=== PATIENT | male | born 1965 | race Caucasian/White ===

== ENCOUNTER 2023-07-24 16:33 | Outpatient (CLI) | payer BC, SELFPAY ==
--- OUTSIDE RECORDS SUMMARY | 2023-07-24 16:52 | XMS RPT_ITS | CCD ---
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 Name Role Phone JAMIA OTERO Attending Unavailable SHANNA, JAMIA Martinez Primary Care Unavailable SHANNA, JAMIA Martinez Admitting Unavailable NATALIE SARAH CNP Referring Unavailable NATALIE SARAH CNP Consulting Unavailable PROVIDER, UNKNOWN Consulting Unavailable PROVIDER, UNKNOWN Consulting Unavailable LEATHA SMITH IT SYSTEMS ADMINISTRATOR Primary Care Unavailable KAVYARLEATHA IT SYSTEMS ADMINISTRATOR Admitting Unavailable NATALIE SARAH CNP Consulting Unavailable CHEPEERERLEATHA IT SYSTEMS ADMINISTRATOR Attending Unavailable PROVIDER, UNKNOWN Consulting Unavailable PROVIDER, UNKNOWN Consulting Unavailable UNGERERLEATHA IT SYSTEMS ADMINISTRATOR Consulting Unavailable FISCHER, MALIA T Attending Unavailable FISCHER, MALIA T Primary Care Unavailable FISCHER, MALIA T Admitting Unavailable PROVIDER, UNKNOWN Consulting Unavailable JAMIA OTERO Attending Unavailable SHANNA, JAMIA Martinez Primary Care Unavailable SHANNA, JAMIA Martinez Admitting Unavailable NATALIE SARAH CNP Consulting Unavailable NATALIE SARAH CNP Referring Unavailable PROVIDER, UNKNOWN Consulting Unavailable PROVIDER, UNKNOWN Consulting Unavailable Results Test Name Value Interpretation Reference Range Facil ity Encounters Encounter Date Encounter Type Care Provider Facility Start: 02-17-2023 ambulatory LEATHA IT SYSTEMS ADMINISTRATOR [facility] Start: 02-14-2023 End: 02-14-2023 Emergency department patient visit JAMIA OTERO [facility] Start: 01-15-2023 End: 01-15-2023 ambulatory LEATHA IT SYSTEMS ADMINISTRATOR [facility] Start: 08-06-2022 End: 08-06-2022 Emergency department patient visit JAMIA Martinez SHANNA [facility] Payers Date Payer Category Payer Unknown [id number] [id number] 1965 Unknown [id number] [id number] 1965 Unknown [id number] [id number] 1965 Unknown [id number] [id number] Unknown [id number] Unknown [id number] Unknown [id number] Summary Purpose Family History No Family History Records FoundNo Family History Records Found Advance Directives No Advanced Directives Records FoundNo Advanced Directives Records Found Additional Source Comments (unrecognized sect ion and content) No Status Records FoundNo Status Records Found INFORMATION SOURCE (unrecogn ized section and content) DATE CREATED AUTHOR AUTHOR'S ORGANIZ ATION 02/18/2023 [facility] FOR RECORDS PERTAINING TO PATIENTS WHO ARE OR HAVE BEEN ENROLLED IN A CHEMICAL DEPENDENCY/SUBSTANCEABUSE PROGRAM, SOME INFORMATION MAY BE OMITTED. This clinical summary was aggregated from multiple sources. Caution should be exercised in using it in the provision of clinical care. This summary normalizes information from multiple sources, and as a consequence, information in this document may materially change the coding, format and clinical context of patient data. In addition, data may be omitted in some cases. CLINICAL DECISIONS SHOULD BE BASED ON THE PRIMARY CLINICAL RECORDS. [employer] [facility]. provides no warranty or guarantee of the accuracy or completeness of information in this document.
[2023-07-24 17:18] LABS: Absolute Neutrophil Count 3.2 X10^3/uL (2.0-7.7); Basophil# 0.06 X10^3/uL; Eosinophil# 0.11 X10^3/uL; Eosinophils% 1.9 % (0-5); Hematocrit 43.4 % (40-54); Hemoglobin 14.9 g/dL (13.0-16.5); Lymphocyte % 32.9 % (19-41); Mean Corp Hgb Conc 34.3 g/dL (32-36); Mean Corpuscular Hgb 31.8 pg (27.0-32.0); Mean Corpuscular Volume 92.5 fL (80-94); Mean Platelet Vol. 10.5 fl (6.2-12.0); Monocyte% 8.7 % (0-10); NRBC Flagged by Analyzer 0 % (0-5); Neutrophil # 3.19 X10^3/uL (2.7-7.7); Neutrophil % 55.2 % (47-70); Platelet Count 146 K/mm3 (150-450); RBC Distribution Width CV 13.5 % (11.6-14.6); RBC Distribution Width SD 45.6 fl (35.1-43.9); Red Blood Count 4.69 M/mm3 (4.6-6.2); White Blood Count 5.8 K/mm3 (4.4-11.0)
[2023-07-24 18:11] LABS: Vitamin D,25 Hydroxy 9.6 ng/mL
[2023-07-24 18:30] LABS: ALB/GLOB Ratio 0.9 RATIO (0.9-2.4); AST(SGOT) 28 U/L (15-37); Alanine Aminotransfer ALT/SGPT 36 U/L (16-61); Albumin, Serum 3.7 g/dL (3.2-5.0); Alkaline Phosphatase 127 U/L (45-117); Anion Gap 5 (5-15); BUN 16 mg/dL (7-18); BUN/Creat Ratio 16.7 RATIO (10-20); Calcium,Total 8.4 mg/dL (8.5-10.1); Chloride 110 mmol/L (98-107); Cholesterol 178 mg/dL (200); Creatinine, Serum 0.96 mg/dL (0.70-1.30); EST Glomerular Filtration Rate 85 mL/min (>60); Est Glom Filt Rate - Afr Amer 103 mL/min (>60); Globulin 3.9 g/dL (2.2-4.2); Glucose 91 mg/dL (74-106); High Density Lipoprotein 30 mg/dL; Potassium 3.5 mmol/L (3.5-5.1); Protein, Total 7.6 g/dL (6.4-8.2); Sodium Level 139 mmol/L (136-145); Thyroid Stim Hormone (TSH) 0.66 uIU/mL (0.358-3.74); Triglycerides 466 mg/dL
== END 2023-07-24 23:59 | disposition home or self-care (01) ==
LOC: MTLAB 16:35
PROVIDERS: PCP Family Medicine; Referring Provider Family Medicine; Visit Provider Family Medicine
DX: Z13.220 Encounter for screening for lipoid disorders (principal); I10 Essential (primary) hypertension; Z13.21 Encounter for screening for nutritional disorder
CPT/HCPCS: 36415; 80053; 80061; 82306; 84443; 85025

== ENCOUNTER → 2023-09-25 | Outpatient (CLI) | payer BC, SELFPAY ==
--- NOTE | 2023-09-25 17:13 | RAD_ITS ---
STUDY: X-RAY - RIGHT SHOULDER REASON FOR EXAM: Male, 57 years old. Right shoulde rinjury TECHNIQUE: 3 view(s) of the shoulder. COMPARISON: None. 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 Normal acromioclavicular joint. Normal acromion. Normal humeral head and visualized proximal humerus. The soft tissue structures are unremarkable. Normal visualized pulmonary apex. RAD/Shoulder min 2 Views IMPRESSION: No fracture or malalignment Electronically Signed: Israel Fatima MD (Brooks) at 20:27 EST ,
--- OUTSIDE RECORDS SUMMARY | 2023-09-25 19:11 | XMS RPT_ITS | CCD ---
Author Name Unknown Address [address] [place] [address] Organization [facility] Care Team Providers Care Sewer Separation Designer Name Role Phone JAMIA OTERO Attending Unavailable SHANNA, JAMIA Martinez Primary Care Unavailable SHANNA, JAMIA Martinez Admitting Unavailable NATALIE SARAH CNP Referring Unavailable NATALIE SARAH CNP Consulting Unavailable PROVIDER, UNKNOWN Consulting Unavailable PROVIDER, UNKNOWN Consulting Unavailable LEATHA SMITH MECHANISM INSPECTOR Primary Care Unavailable KAVYARLEATHA MECHANISM INSPECTOR Admitting Unavailable NATALIE SARAH CNP Consulting Unavailable CHEPEERERLEATHA MECHANISM INSPECTOR Attending Unavailable PROVIDER, UNKNOWN Consulting Unavailable PROVIDER, UNKNOWN Consulting Unavailable UNGERERLEATHA MECHANISM INSPECTOR Consulting Unavailable FISCHER, MALIA T Attending Unavailable [...] Care Provider Facility Start: 02-17-2023 ambulatory [facility]ATHA MECHANISM [facility] Start: 02-14-2023 End: 02-14-2023 Emergency department patient visit JAMIA Juan SHANNA [facility] Start: 01-15-2023 End: 01-15-2023 ambulatory LEATHA MECHANISM INSPECTOR [facility] Start: 08-06-2022 End: 08-06-2022 Emergency department patient visit JAMIA Martinez SHANNA [facility] Payers Date Payer Category Payer Unknown [id number] [id number] [id number] 1965 Unknown [id number] [id number] [id number] 1965 Unknown [id number] [id number] [id number] 1965 Unknown [id number] [id number] Unknown [id number] Unknown [id number] Unknown [id number] Summary Purpose Family History No Family History Records FoundNo Family History Records Found Advance Directives No Advanced Directives Records FoundNo Advanced Directives Records Found Additional Source Comments (unrecognized sect ion and content) No Status Records FoundNo Status Records Found INFORMATION SOURCE (unrecogn ized section and content) DATE CREATED AUTHOR AUTHOR'S ORGANIZ ATION 02/18/2023 [facility] FOR RECORDS PERTAINING TO PATIENTS WHO [...] BE BASED ON THE PRIMARY CLINICAL RECORDS. [facility]. provides no warranty or guarantee of the accuracy or completeness of information in this document.
== END | disposition home or self-care (01) ==
PROVIDERS: PCP Family Medicine; Referring Provider Family Medicine; Visit Provider Family Medicine
DX: M25.519 Pain in unspecified shoulder (principal)
CPT/HCPCS: 73030

== ENCOUNTER → 2023-10-13 | Outpatient (CLI) | payer BC, SELFPAY ==
[2023-10-13 19:09] LABS: Troponin-I HS 8 pg/mL (3.0-78.0)
== END | disposition home or self-care (01) ==
LOC: LAB 17:31
PROVIDERS: PCP Family Medicine; Referring Provider Family Medicine; Visit Provider Family Medicine
DX: Q24.9 Congenital malformation of heart, unspecified (principal)
CPT/HCPCS: 36415; 84484

== ENCOUNTER 2023-11-05 08:09 | Emergency (ER) | payer BC, SELFPAY ==
[2023-11-05 08:09] VITALS: BP 115/96; PULSE 76; RESP 16; TEMP 36.1; O2SAT 99; BMI 25.9
--- NOTE | 2023-11-05 08:18 | EKG12_ITS ---
Test Reason : CHEST PAIN Blood Pressure : / mmHG Vent. Rate : 072 BPM Atrial Rate : 072 BPM P-R Int : 188 ms QRS Dur : 086 ms QT Int : 394 ms P-R-T Axes : 027 024 025 degrees QTc Int : 431 ms Normal sinus rhythm Low voltage QRS Borderline ECG Confirmed by DESTINY BURNETTE, ISABEL ([id number]), field map editor TORY MORALES ([id number]) on 11/06/2023 9:14:29 AM Referred By: Confirmed By:ISABEL DIXON MD
--- NOTE | 2023-11-05 08:18 | RAD_ITS ---
INDICATION: chest pain EXAMINATION/TECHNIQUE: X-RAY - XR Chest 1 View COMPARISON: No relevant prior comparison study available FINDINGS: LINES/DEVICES: None. LUNGS: No consolidation, edema or effusion. No pneumothorax. MEDIASTINUM AND CARDIOVASCULAR STRUCTURES: Cardiac silhouette not enlarged. Central airways and mediastinal contour are unremarkable. BONES AND SOFT TISSUES: Unremarkable. RAD/Chest 1 View (Portable) IMPRESSION: No radiographic evidence of acute cardiopulmonary disease. Electronically Signed: Bill Adams MD at 8:47 EDT ,
--- NOTE | 2023-11-05 08:19 | EDS_ITS ---
HPI History of Present Illness Chief Complaint: Chest Pain Informant: patient Onset/Context/Timing Onset: Weeks Narrative Narrative: Patient present secondary to chest pain. Has been having chest pain and shortness of breath for several weeks that tends to wax and wane. This morning his symptoms were worsened so he presents to the emergency room. He is scheduled for an echocardiogram and stress test on the , but due to worsening symptoms came in today for evaluation. He reports history of hypertension. No known history of cardiac disease. No risk factors for DVT/PE. [facility] Medical History (Updated 11/05/23 @ 11:[address] Ramona Graves MD) Hypertension Home Medications amlodipine 10 mg tablet 10 mg PO DAILY 11/05/23 [History Last Taken 11/04/23] losartan 50 mg tablet 50 mg PO DAILY 11/05/23 [History Last Taken 11/04/23] Allergy/AdvReac Type Severity Reaction Status Date / Time No Known Allergies Allergy Unverified 07/14/23 13:56 Social History (Updated 11/05/23 @ 08:[address] Ramona Graves MD) Smoking Status: Never smoker ROS ROS ED Constitutional Constitutional ED: Denies chills or fever(s) Eyes Eyes: Denies change in vision or discharge from eye(s) ENT ENT ED: Denies discharge from eye(s), rhinorrhea or sore throat Cardiovascular Cardiovascular: Denies chest pain or palpitations Respiratory/Chest Respiratory/Chest: Reports dyspnea; Denies cough Gastrointestinal Gastrointestinal: Reports abdominal pain; Denies nausea or vomiting Musculoskeletal Musculoskeletal: Denies back pain or extremity pain Integumentary Denies Abrasions or rash Neurologic Neurologic: Denies headache(s) or weakness Allergic/Immunologic Allergic/Immunologic ED: Denies lip swelling or urticaria EXAM Physical Exam Const Vital Signs: 11/05/23 08:09 11/05/23 08:18 11/05/23 10:09 Temperature 97 F L Temperature Source Temporal Pulse Rate 76 56 L Respiratory Rate 16 16 Blood Pressure 115/96 H 119/90 H Blood Pressure Mean 102 99 Pulse Ox 99 97 Oxygen Delivery Method Room Air Room Air Room Air Positive well nourished and well developed General Appearance ED: well developed HEENT Reports moist mucous membranes Eyes EOMs intact bilaterally Chest Wall inspection of chest normal and palpation of chest normal Resp normal respiratory effort and clear to auscultation bilaterally Cardio regular rate and regular rhythm GI non-tender Palpation: soft Extremity normal to inspection Neuro oriented x3 and no sensory deficits noted Motor Exam: strength 5/5 throughout Psych mental status grossly normal Skin no rashes or lesions noted MDM MDM MDM Narrative Medical decision making narrative: Patient placed on cardiac rehabilitation specialist. IV line initiated. EKG obtained to evaluate for cardiac arrhythmia/ischemia. Chest x-ray obtained to evaluate for acute lung pathology, cardiac size, or mediastinal abnormality. Labwork obtained to evaluate for leukocytosis, anemia, and electrolyte derangement. Patient given aspirin on arrival. History & Record Review Discussion w/independent historian: Patient and Significant other Additional record(s) reviewed:: Prior labs Lab Data Attestation: I reviewed the patient's lab results. Labs: Laboratory Results - last 24 hr 11/05/23 11/05/23 08:30 10:40 WBC 5.3 RBC 4.87 Hgb 14.7 Hct 44.1 MCV 90.6 MCH 30.2 MCHC 33.3 RDW Std Deviation 41.8 RDW Coeff of Carlos 12.8 Plt Count 134 L MPV 10.7 Immature Gran % (Auto) 0.400 Neut % (Auto) 61.7 Lymph % (Auto) 28.6 [place] % (Auto) 8.1 Eos % (Auto) 0.4 Baso % (Auto) 0.8 Absolute Neuts (auto) 3.3 Absolute Lymphs (auto) 1.51 Nucleated RBC % 0 D-Dimer Quant (PE/DVT) 0.29 Sodium 140 Potassium 3.7 Chloride 110 H Carbon Dioxide 24.0 Anion Gap 6 BUN 15 Creatinine 1.08 Estim Creat Clear Calc 78.44 Est GFR (MDRD) Af Amer 90 Est GFR (MDRD) Non-Af 74 BUN/Creatinine Ratio 13.9 Glucose 95 Calcium 9.1 Troponin I High Sens 5 5 B-Natriuretic Peptide 25.1 Radiography Chest X-Ray - ED: 1 View, Read by ED Physician, Normal, Heart, Lungs and Mediastinum Diagnostic Testing: Clinical Impression(s) from Imaging Studies Chest X-Ray 11/05/23 08:18 IMPRESSION: No radiographic evidence of acute cardiopulmonary disease. Electronically Signed: Bill Adams MD at 8:47 EDT , EKG Initial EKG: Attestation: I personally reviewed and interpreted this EKG as follows: Interpretation: Sinus Rhythm (Sinus at 72 with no acute ischemia.) Treatment and Re-Evaluation :: CBC was normal white count 5.3 with a hemoglobin of 14.7. Chemistry studies unremarkable. Initial troponin is 5 with a repeat troponin of 5. BNP is normal at 25. Portable chest x-ray per my interpretation reveals chronic changes with no acute findings. Radiology interpretation reviewed and agrees. EKG is sinus rhythm with no acute ischemia. I did discuss patient's pain with him further. It is not necessarily worsened with exertion or better with rest. He states there are several days that he can go to work and perform his normal duties and activities without any pain at all. In light of this with 2 negative troponins I do not feel he needs to stay for an emergent stress test. He will continue to monitor his symptoms and return instructions are given. He will plan to follow-up on the for his scheduled echo and stress unless his symptoms worsen. Discharge Plan Triage Chief Complaint: Chest Pain ED Provider: Ramona Graves Dx/Rx/DC Orders Clinical Impression: Chest pain Instructions: ED Chest Pain, Uncertain Cause Prescriptions: No Action losartan 50 mg tablet 50 mg PO DAILY amlodipine 10 mg tablet 10 mg PO DAILY Stand Alone Forms: Work / School Excuse Primary Care Provider: Sri Stevens Referrals: Sri Stevens MD [Primary Care Provider] - 1-2 Weeks Activity Restrictions/Additional Instructions: Follow-up on the 18 for your echocardiogram and stress test as planned. Return to the ER for worsening symptoms or concerns. Disposition Disposition: Home, Self Care
[2023-11-05] MEDS: Aspirin 81 MG TAB.CHEW 324 MG PO (08:26)
--- NOTE | 2023-11-05 08:26 | ED.RN ---
NO OLD EKG
[2023-11-05 08:45] LABS: Absolute Lymphocyte Count 1.51 X10^3/uL (0.83-4.51); Absolute Neutrophil Count 3.3 X10^3/uL (2.0-7.7); Basophil# 0.04 X10^3/uL; Basophil% 0.8 % (0-1); Eosinophil# 0.02 X10^3/uL; Eosinophils% 0.4 % (0-5); Hematocrit 44.1 % (40-54); Hemoglobin 14.7 g/dL (13.0-16.5); Lymphocyte # 1.51 X10^3/ul (0.83-4.51); Lymphocyte % 28.6 % (19-41); Mean Corp Hgb Conc 33.3 g/dL (32-36); Mean Corpuscular Hgb 30.2 pg (27.0-32.0); Mean Corpuscular Volume 90.6 fL (80-94); Mean Platelet Vol. 10.7 fl (6.2-12.0); Monocyte# 0.43 X10^3/uL; Monocyte% 8.1 % (0-10); NRBC Flagged by Analyzer 0 % (0-5); Neutrophil # 3.26 X10^3/uL (2.7-7.7); Neutrophil % 61.7 % (47-70); Platelet Count 134 K/mm3 (150-450); RBC Distribution Width CV 12.8 % (11.6-14.6); RBC Distribution Width SD 41.8 fl (35.1-43.9); Red Blood Count 4.87 M/mm3 (4.6-6.2); White Blood Count 5.3 K/mm3 (4.4-11.0)
[2023-11-05] MEDS: 0.9% Normal Saline (1000mL) 1,000 ML 150 ML IV (08:47)
[2023-11-05 08:52] LABS: D-Dimer Quantitative (DVT/PE) 0.29 FEU/ug/m (0.27-0.49)
[2023-11-05 09:01] LABS: Anion Gap 6 (5-15); BUN 15 mg/dL (7-18); BUN/Creat Ratio 13.9 RATIO (10-20); Calcium,Total 9.1 mg/dL (8.5-10.1); Chloride 110 mmol/L (98-107); Creatinine, Serum 1.08 mg/dL (0.70-1.30); EST Glomerular Filtration Rate 74 mL/min (>60); Est Glom Filt Rate - Afr Amer 90 mL/min (>60); Estimated Creatinine Clearance 78.44 ml/min; Glucose 95 mg/dL (74-106); Potassium 3.7 mmol/L (3.5-5.1); Sodium Level 140 mmol/L (136-145); Troponin-I HS (w/2H Reflex) 5 pg/mL (3.0-78.0)
[2023-11-05 09:07] LABS: BNP,B-Type NATRIURETIC PEPTIDE 25.1 pg/mL (0-100)
[2023-11-05 10:09] VITALS: BP 119/90; PULSE 56; RESP 16; O2SAT 97
[2023-11-05 10:39] LABS: Reflex Troponin-HS? (from REC) Y
[2023-11-05 11:02] LABS: Troponin-I HS 5 pg/mL (3.0-78.0)
[2023-11-05 11:34] VITALS: BP 131/92; PULSE 61; RESP 16; TEMP 36.5; O2SAT 98
== END 2023-11-05 11:39 | disposition home or self-care (01) ==
PROVIDERS: Emergency Provider Emergency Medicine; PCP Family Medicine; Visit Provider Emergency Medicine
DX: R07.9 Chest pain, unspecified (principal); R06.02 Shortness of breath; I10 Essential (primary) hypertension; Z79.899 Other long term (current) drug therapy
CPT/HCPCS: 71045; 80048; 83880; 84484; 85025; 85379; 93005; 96360; 96361; 99284; J7030

== ENCOUNTER → 2024-01-04 | Outpatient (CLI) | payer BC, SELFPAY | END | disposition home or self-care (01) | PROVIDERS: PCP Family Medicine; Referring Provider Nurse Practitioner Family; Visit Provider Nurse Practitioner Family | DX: N39.0 Urinary tract infection, site not specified (principal) | CPT/HCPCS: 87086 ==

== ENCOUNTER → 2024-03-25 | Outpatient (CLI) | payer BC, SELFPAY ==
[2024-03-25 18:00] LABS: Anion Gap 8 (5-15); BUN 16 mg/dL (7-18); BUN/Creat Ratio 13.6 RATIO (10-20); Calcium,Total 9.1 mg/dL (8.5-10.1); Chloride 105 mmol/L (98-107); Creatinine, Serum 1.18 mg/dL (0.70-1.30); EST Glomerular Filtration Rate 67 mL/min (>60); Est Glom Filt Rate - Afr Amer 81 mL/min (>60); Glucose 94 mg/dL (74-106); PSA,Total - Annual Screen 1.23 ng/mL (0.00-4.00); Potassium 3.5 mmol/L (3.5-5.1); Sodium Level 138 mmol/L (136-145)
== END | disposition home or self-care (01) ==
LOC: MFPLAB 15:05
PROVIDERS: PCP Family Medicine; Visit Provider Registered Nurse
DX: R35.0 Frequency of micturition (principal)
CPT/HCPCS: 36415; 80048; 84153; G0103

== ENCOUNTER 2024-04-04 08:20 | Emergency (ER) | payer BC, SELFPAY ==
[2024-04-04 08:21] VITALS: BP 141/100; PULSE 84; RESP 12; TEMP 37.2; O2SAT 100; BMI 26.1
[2024-04-04 08:35] VITALS: O2SAT 97
--- NOTE | 2024-04-04 08:35 | EKG12_ITS ---
Test Reason : SYNCOPE Blood Pressure : / mmHG Vent. Rate : 071 BPM Atrial Rate : 071 BPM P-R Int : 186 ms QRS Dur : 092 ms QT Int : 402 ms P-R-T Axes : 035 067 017 degrees QTc Int : 436 ms Normal sinus rhythm Normal ECG Confirmed by DESTINY BURNETTE, ISABEL ([id number]), photo editor TORY MORALES ([id number]) on 04/05/2024 1:12:48 PM Referred By: Confirmed By:ISABEL DIXON MD
--- NOTE | 2024-04-04 08:40 | ED.VIS.CHEST ---
HPI History of Present Illness Chief Complaint: Chest Pain Informant: patient Narrative Narrative: Patient presenting with right-sided chest pain, dyspnea on exertion, a cough that is nonproductive, had an episode of vertigo when he got up from lying down yesterday and then again this morning making him vomit. He felt like things were spinning in his head. He states 4 days ago when all of this started, he was stung by 2 bees, 1 on his lower right chest and 1 on his upper right chest. He had some soreness and mild itching but no systemic symptoms until later that evening when his entire right chest was hurting. He started coughing and developed dyspnea with exertion the next day or 2. Denies any lower extremity swelling or pain. No fevers or chills or headaches or myalgias. [facility] Medical History Hypertension Home Medications ?Medication ?Instructions ?Recorded ?Last Taken ?Type amlodipine 10 mg tablet 10 mg PO DAILY 11/05/23 11/04/23 History losartan 50 mg tablet 50 mg PO DAILY 11/05/23 11/04/23 History meclizine 25 mg tablet 25 mg PO Q8H PRN PRN Dizziness #20 04/04/24 Unknown Rx tabs Allergy/AdvReac Type Severity Reaction Status Date / Time No Known Allergies Allergy Verified 04/04/24 08:20 Social History Smoking Status: Never smoker ROS [facility] ED Constitutional Constitutional ED: Denies chills or fever(s) Eyes Eyes: Denies change in vision or diplopia ENT ENT ED: Reports dizziness and vertigo; Denies ear pain, neck pain, rhinorrhea, sore throat, throat swelling or tinnitus Cardiovascular Cardiovascular: Reports as per HPI and chest pain; Denies orthopnea or palpitations Respiratory/Chest Respiratory/Chest: Reports cough and dyspnea on exertion; Denies orthopnea or sputum Gastrointestinal Gastrointestinal: Reports nausea and vomiting; Denies abdominal pain or diarrhea Genitourinary Genitourinary ED: Denies dysuria or hematuria Musculoskeletal Musculoskeletal: Denies back pain or neck pain Integumentary Denies abscess or rash Neurologic Neurologic: Denies headache(s), paresthesias or weakness Psychiatric Psychiatric: Denies anxiety or suicidal thoughts EXAM Physical Exam Const Vital Signs: 04/04/24 08:21 04/04/24 08:35 04/04/24 10:19 Temperature 99 F Temperature Source Temporal Pulse Rate 84 81 Respiratory Rate 12 19 H Blood Pressure 141/100 H 124/68 H Blood Pressure Mean 113 86 Pulse Ox 100 97 98 Oxygen Delivery Method Room Air Room Air Room Air Positive well nourished and well developed General Appearance ED: well developed and NAD HEENT Reports TM's clear and moist mucous membranes normocephalic and atraumatic Tympanic Membrane ED: Yes TM's clear Eyes PERRL and EOMs intact bilaterally Neck full ROM and supple Chest Wall inspection of chest normal and palpation of chest normal Chest Narrative: 2 areas right upper and right lower chest wall where patient was stung by bees are benign and the sting sites are barely noticeable, patient agrees they are much better. He states there was a red area that was itchy around them. Resp normal respiratory effort and clear to auscultation bilaterally Cardio regular rate, regular rhythm and no murmurs GI non-tender and non-distended Auscultation: normoactive bowel sounds Palpation: soft Back/Spine no CVA tenderness General Back: other FROM Extremity normal to inspection General Extremety ED: Negative for edema, pulses abnormal or tenderness General Extremity: Negative for edema or pulses abnormal Neuro oriented x3, CN's II-XII intact bilaterally and no sensory deficits noted Sensorium / Orientation: awake and alert Motor Exam: strength 5/5 throughout Psych mental status grossly normal Skin no rashes or lesions noted and no wounds Heart Score History: Slightly/Non-Suspicious ECG: Normal Age: >45 - <65 years Risk Factors: 1 or 2 Risk Factors Troponin: </= Normal Limit Score: 2 MDM MDM MDM Narrative Medical decision making narrative: 2 view chest x-ray on my interpretation shows no evidence of pneumonia or pneumothorax, radiology in agreement. D-dimer was performed given his low Wells score, that is well within normal limits, ruling out pulmonary embolus. In addition his EKG and troponin are normal, the rest of his labs are normal, he does have some mild leukopenia so I did a COVID/influenza/RSV swab which was negative. Patient was given meclizine he is doing well, he states he feels like he is wheezing a little bit and having some tightness and he was afraid this was due to the bee sting. I reassured him, if he was can have an anaphylactic or anaphylactoid reaction it would have been relatively quickly after the sting. I suspect that he actually has bronchitis with wheezing. His states she has albuterol inhalers and a nebulizer machine that he can use if he needs it which I think is fine and going to prescribe him meclizine in addition, this vertigo seems very peripheral, he is triggering it only with certain position changes. I do not think he needs a head CT. I do not look he needs any other emergent testing here. His vital signs are normal including blood pressure 124/68, pulse oximetry 98-100 on room air, and he has a low-grade temperature 99.0. This may all be viral-mediated. 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 No known major exposures recently, he states they are usually very careful. I do not think any of his symptoms here are related to his work environment. Supportive care advised, follow-up 1 week if still having symptoms or getting worse. He is comfortable with that plan. Lab Data Attestation: I reviewed the patient's lab results. Labs: Laboratory Results - last 24 hr 04/04/24 08:42 WBC 3.4 L RBC 4.87 Hgb 14.8 Hct 43.9 MCV 90.1 MCH 30.4 MCHC 33.7 RDW Std Deviation 42.5 RDW Coeff of Carlos 12.9 Plt Count 111 L MPV 10.3 Immature Gran % (Auto) 0.600 Neut % (Auto) 56.8 Lymph % (Auto) 25.3 [place] % (Auto) 13.4 H Eos % (Auto) 2.7 Baso % (Auto) 1.2 H Absolute Neuts (auto) 1.9 L Absolute Lymphs (auto) 0.85 Nucleated RBC % 0 D-Dimer Quant (PE/DVT) 0.36 Sodium 137 Potassium 3.6 Chloride 107 Carbon Dioxide 25.0 Anion Gap 5 BUN 11 Creatinine 1.30 Estim Creat Clear Calc 64.36 Est GFR (MDRD) Af Amer 72 Est GFR (MDRD) Non-Af 60 BUN/Creatinine Ratio 8.5 L Glucose 124 H Calcium 8.7 Troponin I High Sens 5 Radiography Diagnostic Testing: Clinical Impression(s) from Imaging Studies Chest X-Ray 04/04/24 08:50 IMPRESSION: No radiographic evidence of acute cardiopulmonary disease. Electronically Signed: Hakan VWei Benedictshade at 8:59 EDT , Rhythm Strip Rhythm Strip: Sinus Rhythm Rate: 70 Ectopy: None EKG Initial EKG: Attestation: I personally reviewed and interpreted this EKG as follows: Interpretation: Sinus Rhythm and No Acute Injury Pattern Comments: nml EKG Prior EKG tracings: available for review Prior: Unchanged Discharge Plan Triage Chief Complaint: Chest Pain ED Provider: Brian Schmitt Dx/Rx/DC Orders Clinical Impression: Right-sided chest pain, Bee sting, Acute bronchitis with wheezing, Episodic peripheral vertigo Instructions: ED Bronchitis with Wheezing (Adult), ED Vertigo, Unspecified Prescriptions: New meclizine 25 mg tablet 25 mg PO Q8H PRN PRN (Reason: Dizziness) Qty: 20 0RF No Action losartan 50 mg tablet 50 mg PO DAILY amlodipine 10 mg tablet 10 mg PO DAILY Primary Care Provider: Sri Stevens Referrals: Sri Stevens MD [Primary Care Provider] - 1 Week if not improving Print Language: Bur[place]ian Disposition Disposition: Home, Self Care
[2024-04-04] MEDS: Meclizine HCl 25 MG Tablet PO (08:45)
--- NOTE | 2024-04-04 08:50 | RAD_ITS ---
EXAM: XR CHEST, 2 VIEWS CLINICAL INDICATION: chest pain, cough, FRANK TECHNIQUE: Frontal and lateral views of the chest. COMPARISON: 11/05/2023 FINDINGS: LUNGS AND PLEURAL SPACES: No significant abnormality. No consolidation or edema. No pneumothorax. No effusion. HEART: No significant abnormality. Cardiac silhouette not enlarged. MEDIASTINUM: Central airways and mediastinal contour are unremarkable. BONES/JOINTS: No significant abnormality. No acute fracture. SOFT TISSUES: No significant abnormality. RAD/Chest PA and Lateral IMPRESSION: No radiographic evidence of acute cardiopulmonary disease. Electronically Signed: Hakan Patrick DO at 8:59 EDT ,
[2024-04-04 09:00] LABS: D-Dimer Quantitative (DVT/PE) 0.36 FEU/ug/m (0.27-0.49)
[2024-04-04 09:06] LABS: Absolute Lymphocyte Count 0.85 X10^3/uL (0.83-4.51); Absolute Neutrophil Count 1.9 X10^3/uL (2.0-7.7); Basophil# 0.04 X10^3/uL; Basophil% 1.2 % (0-1); Eosinophil# 0.09 X10^3/uL; Eosinophils% 2.7 % (0-5); Hematocrit 43.9 % (40-54); Hemoglobin 14.8 g/dL (13.0-16.5); Lymphocyte # 0.85 X10^3/ul (0.83-4.51); Lymphocyte % 25.3 % (19-41); Mean Corp Hgb Conc 33.7 g/dL (32-36); Mean Corpuscular Hgb 30.4 pg (27.0-32.0); Mean Corpuscular Volume 90.1 fL (80-94); Mean Platelet Vol. 10.3 fl (6.2-12.0); Monocyte# 0.45 X10^3/uL; Monocyte% 13.4 % (0-10); NRBC Flagged by Analyzer 0 % (0-5); Neutrophil # 1.91 X10^3/uL (2.7-7.7); Neutrophil % 56.8 % (47-70); Platelet Count 111 K/mm3 (150-450); RBC Distribution Width CV 12.9 % (11.6-14.6); RBC Distribution Width SD 42.5 fl (35.1-43.9); Red Blood Count 4.87 M/mm3 (4.6-6.2); White Blood Count 3.4 K/mm3 (4.4-11.0)
[2024-04-04 09:19] LABS: Anion Gap 5 (5-15); BUN 11 mg/dL (7-18); BUN/Creat Ratio 8.5 RATIO (10-20); Calcium,Total 8.7 mg/dL (8.5-10.1); Chloride 107 mmol/L (98-107); EST Glomerular Filtration Rate 60 mL/min (>60); Est Glom Filt Rate - Afr Amer 72 mL/min (>60); Estimated Creatinine Clearance 64.36 ml/min; Glucose 124 mg/dL (74-106); Potassium 3.6 mmol/L (3.5-5.1); Sodium Level 137 mmol/L (136-145); Troponin-I HS 5 pg/mL (3.0-78.0)
[2024-04-04 10:19] VITALS: BP 124/68; PULSE 81; RESP 19; O2SAT 98
[2024-04-04 10:49] VITALS: BP 142/78; PULSE 81; RESP 19; TEMP 36.7; O2SAT 98
== END 2024-04-04 10:56 | disposition home or self-care (01) ==
PROVIDERS: Emergency Provider Emergency Medicine; PCP Family Medicine; Visit Provider Emergency Medicine
DX: R07.9 Chest pain, unspecified (principal); J20.9 Acute bronchitis, unspecified; I10 Essential (primary) hypertension; R06.2 Wheezing; R42 Dizziness and giddiness; T63.441A Toxic effect of venom of bees, accidental (unintentional), initial encounter; Z79.899 Other long term (current) drug therapy
CPT/HCPCS: 71046; 80048; 84484; 85025; 85379; 87631; 93005; 99284

== ENCOUNTER → 2024-05-09 | Outpatient (CLI) | payer BC, SELFPAY ==
--- NOTE | 2024-05-09 13:20 | CT_ITS ---
STUDY: CT ABDOMEN AND PELVIS WITH CONTRAST REASON FOR EXAM: Male, 58 years old. Chronic nausea RADIATION DOSAGE (If Supplied By Facility): CTDIvol = ( 12.19 ) mGy, DLP = ( 625.72 ) mGycm TECHNIQUE: Oral and amp; IV Redi-CAT and amp; 100mL Isovue-300 was administered. Transaxial images were obtained from the dome of the diaphragm to the symphysis pubis. Multiplanar coronal and sagittal images were reformatted. The protocol utilizes one or more of the following dose reduction techniques: automated exposure control, adjustment of mA and/or kV according to patient size,and/or use of iterative reconstruction technique. COMPARISON: No relevant prior comparison study available FINDINGS: The visualized lung bases are unremarkable. The visualized portions of the heart are within normal limits. Multiple liver cysts are seen, the largest is in the right lobe measuring about 4 cm. There are surgical clips in the gallbladder fossa consistent with a prior cholecystectomy. The spleen is borderline in size. Normal pancreas. Normal bilateral adrenal glands. Normal visualized stomach. Normal in caliber small bowel loops. Thickening of the cecum as well as the distal descending and sigmoid colon concerning for colitis. Infiltrative process is less likely. The appendix is visualized and appears normal. No evidence of abdominal aortic aneurysm. No retroperitoneal adenopathy. Normal right kidney. Normal left kidney. Normal urinary bladder. Enlarged prostate. [Calcifications. Normal abdominal wall. Mild depression or Schmorl''s node in the superior endplate of L3. CT/Abdomen/Pelvis WITH Contrast IMPRESSION: 1. Thickening of the cecum and sigmoid colon concerning for colitis. Infiltrative process is less likely. Follow-up exam or correlation with colonoscopy is recommended. 2. Otherwise no focal acute inflammatory process. 3. Enlarged prostate. Correlation with PSA level is recommended. Electronically Signed: Bill Adams MD at 15:59 EDT ,
== END | disposition home or self-care (01) ==
LOC: CT 13:19
PROVIDERS: PCP Family Medicine; Referring Provider Family Medicine; Visit Provider Family Medicine
DX: R11.0 Nausea (principal)
CPT/HCPCS: 74177; Q9967

== ENCOUNTER → 2024-07-19 | Outpatient (CLI) | payer BC, SELFPAY ==
[2024-07-19 17:52] LABS: Absolute Lymphocyte Count 2.01 X10^3/uL (0.83-4.51); Absolute Neutrophil Count 3.8 X10^3/uL (2.0-7.7); Basophil# 0.08 X10^3/uL; Basophil% 1.2 % (0-1); Eosinophil# 0.11 X10^3/uL; Eosinophils% 1.7 % (0-5); Hematocrit 39.2 % (40-54); Hemoglobin 13.7 g/dL (13.0-16.5); Lymphocyte # 2.01 X10^3/ul (0.83-4.51); Lymphocyte % 30.7 % (19-41); Mean Corp Hgb Conc 34.9 g/dL (32-36); Mean Corpuscular Hgb 30.4 pg (27.0-32.0); Mean Corpuscular Volume 87.1 fL (80-94); Mean Platelet Vol. 10.9 fl (6.2-12.0); Monocyte% 7.6 % (0-10); NRBC Flagged by Analyzer 0 % (0-5); Neutrophil # 3.83 X10^3/uL (2.7-7.7); Neutrophil % 58.5 % (47-70); Platelet Count 145 K/mm3 (150-450); RBC Distribution Width CV 13.3 % (11.6-14.6); RBC Distribution Width SD 41.2 fl (35.1-43.9); White Blood Count 6.6 K/mm3 (4.4-11.0)
[2024-07-19 18:11] LABS: Erythrocyte Sedimentation Rate 4 mm/hr (0-20)
[2024-07-19 18:38] LABS: AST(SGOT) 28 U/L (15-37); Alanine Aminotransfer ALT/SGPT 35 U/L (16-61); Albumin, Serum 3.8 g/dL (3.2-5.0); Alkaline Phosphatase 135 U/L (45-117); Anion Gap 6 (5-15); BUN 11 mg/dL (7-18); BUN/Creat Ratio 9.8 RATIO (10-20); CRP < 2.90 mg/L (0.0-3.0); Calcium,Total 8.6 mg/dL (8.5-10.1); Chloride 110 mmol/L (98-107); Creatinine, Serum 1.12 mg/dL (0.70-1.30); EST Glomerular Filtration Rate 71 mL/min (>60); Est Glom Filt Rate - Afr Amer 86 mL/min (>60); Globulin 3.8 g/dL (2.2-4.2); Glucose 107 mg/dL (74-106); Protein, Total 7.6 g/dL (6.4-8.2); Sodium Level 140 mmol/L (136-145)
== END | disposition home or self-care (01) ==
LOC: MTLAB 16:28
PROVIDERS: PCP Family Medicine; Referring Provider Family Medicine; Visit Provider Family Medicine
DX: K52.9 Noninfective gastroenteritis and colitis, unspecified (principal)
CPT/HCPCS: 36415; 80053; 84443; 85025; 85652; 86140

== ENCOUNTER → 2024-09-23 | Outpatient (CLI) | payer BC, SELFPAY ==
[2024-09-23 17:47] LABS: Potassium 3.3 mmol/L (3.5-5.1)
== END | disposition home or self-care (01) ==
LOC: MFPLAB 16:58
PROVIDERS: PCP Family Medicine; Referring Provider Family Medicine; Visit Provider Family Medicine
DX: E87.6 Hypokalemia (principal)
CPT/HCPCS: 36415; 84132

== ENCOUNTER → 2024-10-07 | Outpatient (CLI) | payer BC, SELFPAY ==
--- NOTE | 2024-10-07 16:29 | RAD_ITS ---
PROCEDURE: FOOT MIN 3 VIEWS REASON FOR EXAM: Pain TECHNIQUE: Three views of the left foot COMPARISON: None. FINDINGS: See impression RAD/Foot min 3 Views IMPRESSION: Negative for acute fracture or malalignment. Healed chronic fracture deformity of the 5th metatarsal. Mild 1st MTP joint osteoarthritis. No suspicious erosions. Vascular calcifications. Reading Location: [facility]
== END | disposition home or self-care (01) ==
LOC: MTRAD 16:27
PROVIDERS: PCP Family Medicine; Referring Provider Family Medicine; Visit Provider Family Medicine
DX: M10.9 Gout, unspecified (principal)
CPT/HCPCS: 73630

== ENCOUNTER → 2024-12-12 | Outpatient (CLI) | payer BC, SELFPAY ==
--- NOTE | 2024-12-12 15:05 | RAD_ITS ---
PROCEDURE: ABDOMEN SINGLE VIEW 12/12/2024 REASON FOR EXAM: ABDOMINAL PAIN TECHNIQUE: Two-view supine abdomen. COMPARISON: Chest x-ray of 04/04/2024 RAD/Abdomen Single View IMPRESSION: Right upper quadrant abdominal surgical clips are seen. Air and stool are seen throughout the large bowel and rectum. Mildly dilated s mall bowel loops are seen centrally and to the left especially, concerning for adynamic ileus (versus early/partial small kaushal l obstruction). No mass or mass effect is seen. Degenerative changes are seen of the visualized spine, particularly the lower l umbar spine. Reading Location: [place] [id number]
[2024-12-12 18:07] LABS: Absolute Lymphocyte Count 1.49 X10^3/uL (0.83-4.51); Absolute Neutrophil Count 3.5 X10^3/uL (2.0-7.7); Basophil# 0.03 X10^3/uL; Basophil% 0.5 % (0-1); Eosinophil# 0.05 X10^3/uL; Eosinophils% 0.9 % (0-5); Hematocrit 42.3 % (40-54); Hemoglobin 14.6 g/dL (13.0-16.5); Lymphocyte # 1.49 X10^3/ul (0.83-4.51); Lymphocyte % 25.4 % (19-41); Mean Corp Hgb Conc 34.5 g/dL (32-36); Mean Corpuscular Hgb 30.4 pg (27.0-32.0); Mean Corpuscular Volume 88.1 fL (80-94); Mean Platelet Vol. 10.8 fl (6.2-12.0); Monocyte# 0.74 X10^3/uL; Monocyte% 12.6 % (0-10); NRBC Flagged by Analyzer 0 % (0-5); Neutrophil # 3.54 X10^3/uL (2.7-7.7); Neutrophil % 60.4 % (47-70); Platelet Count 146 K/mm3 (150-450); RBC Distribution Width CV 13.7 % (11.6-14.6); RBC Distribution Width SD 44.4 fl (35.1-43.9); White Blood Count 5.9 K/mm3 (4.4-11.0)
[2024-12-12 18:47] LABS: ALB/GLOB Ratio 1.4 RATIO (0.9-2.4); AST(SGOT) 22 U/L (<=37); Alanine Aminotransfer ALT/SGPT 19 U/L (<=46); Albumin, Serum 4.4 g/dL (3.4-4.8); Alkaline Phosphatase 128 U/L (40-129); Anion Gap 14 (5-15); BUN 20 mg/dL (4-19); BUN/Creat Ratio 14.7 RATIO (10-20); Calcium,Total 9.2 mg/dL (7.6-11.0); Carbon Dioxide 19.4 mmol/L (21.0-32.0); Chloride 103 mmol/L (98-108); Creatinine, Serum 1.34 mg/dL (0.70-1.20); EST Glomerular Filtration Rate 60 (>60); Globulin 3.1 g/dL (2.2-4.2); Glucose 87 mg/dL (70-99); Lipase 40 U/L (13-75); Potassium 3.4 mmol/L (3.3-5.1); Protein, Total 7.6 g/dL (5.9-8.4); Sodium Level 136 mmol/L (133-145); Total Bilirubin 1.25 mg/dL (0.00-1.30)
== END | disposition home or self-care (01) ==
PROVIDERS: PCP Family Medicine; Referring Provider Family Medicine; Visit Provider Family Medicine
DX: R19.7 Diarrhea, unspecified (principal); R11.10 Vomiting, unspecified; R10.9 Unspecified abdominal pain; G89.29 Other chronic pain
CPT/HCPCS: 36415; 74018; 80053; 83690; 85025

== ENCOUNTER → 2024-12-23 | Outpatient (CLI) | payer BC, SELFPAY ==
--- NOTE | 2024-12-23 16:56 | RAD_ITS ---
PROCEDURE: SHOULDER MIN 2 VIEWS 12/23/2024 REASON FOR EXAM: INJURY TO SHOULDER TECHNIQUE: Four views of the left shoulder were obtained. COMPARISON: None FINDINGS: Bones: No fracture or dislocation. Joints: Degenerative arthrosis of the acromioclavicular joint. Mild degree of joint space narrowing of the glenohumeral joint. Soft tissues: Soft tissues are unremarkable. Other: RAD/Shoulder min 2 Views IMPRESSION: Degenerative changes of the acromioclavicular joint as well as the glenohumeral joint. Reading Location: [facility]
== END | disposition home or self-care (01) ==
LOC: MTRAD 16:56
PROVIDERS: PCP Family Medicine; Referring Provider Family Medicine; Visit Provider Family Medicine
DX: M25.512 Pain in left shoulder (principal)
CPT/HCPCS: 73030

== ENCOUNTER 2025-06-02 07:09 | Day surgery (SDC) | payer BC, SELFPAY ==
--- NOTE | 2025-05-31 14:09 | PAT.ANESEVAL ---
Pre-Assessment Diagnosis/Proposed Procedure Planned Operative Procedure(s): COLONOSCOPY Anesthesia History Anesthesia History - compensation analyst: Anesthesia History - compensation analyst Hx Hospitalization No 05/31/25 13:22 Any Problems With Anesthesia No 05/31/25 13:22 Cholinesterase deficiency No 05/31/25 13:22 You/Your Family Experience No 05/31/25 13:22 fever (hyperthermia) with Relationship Recent Exposure to Contagious Disease Does patient have nerve No 05/31/25 13:22 stimulator Patient instructed to have device shut off --Does patient have Pacemaker or ICD? When Was Last Pacemaker Check QUESTION #4 FULL TEXT: You/Your Family Experience fever (hyperthermia) with Anesthesia Last Oral Intake Last Oral intake: Last Oral Intake NPO since Meds taken in AM with sips of water? Meds patient instructed to take am of surgery PONV PONV - compensation analyst: PONV - compensation analyst Female No 05/31/25 13:22 HX of Motion Sickness No 05/31/25 13:22 HX of N/V After Surgery No 05/31/25 13:22 Non-Smoker Yes 05/31/25 13:22 Duration of Surgery greater No 05/31/25 13:22 than 60 minutes Number of Risk Factors 1 05/31/25 13:22 PONV Score Low Risk 05/31/25 13:22 Height & Weight Height & Weight: Anesthesia: Height & Weight Height 5 ft 11 in 04/21/25 13:32 Respiratory Assessment Respiratory Assessment - compensation analyst: Respiratory Tract Infection Hx - compensation analyst Hx Respiratory Tract Infection No 05/31/25 13:22 STOP Sleep Apnea STOP Sleep Apnea - compensation analyst: STOP Sleep Apnea - compensation analyst Hx Hypertension Yes 05/31/25 13:22 Hx Sleep Apnea No 05/31/25 13:22 CPAP BIPAP Do you snore loudly (louder No 05/31/25 13:22 than talking or can be heard Do you often feel tired/ No 05/31/25 13:22 fatigued/ sleepy during daytime? Has anyone observed you stop No 05/31/25 13:22 breathing during sleep? STOP Results Negative 05/31/25 13:22 QUESTION #5 FULL TEXT : Do you snore loudly (louder than talking or can be heard through closed doors)? 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 Specify any problems Hx of Preganancy in last 3 N/A 05/31/25 13:22 Months Nurse Filling Out Transfusion [facility] 05/31/25 13:22 & Questions: Date: 05/31/25 05/31/25 13:22 Time: 05/31/25 13:22 Patient unable to answer at this time (ie. confused, unrespo /Reproduction History /Reproductive History - compensation analyst: /Reproductive Hx- compensation analyst Hx Now Gestational Age (in weeks): EDC: Hx Hx Para Hx Section SAB PFSH Medical History (Updated 05/31/25 @ 13:27 by Lisa Lorenz) Wears glasses Arthritis Gastric reflux Non-smoker Cardiology follow-up encounter History of left heart catheterization First degree AV block Bradycardia Dizziness Hypertension Home Medications ?Medication ?Instructions ?Recorded ?Last Taken ?Type amlodipine 10 mg tablet 10 mg PO DAILY 11/05/23 11/04/23 History losartan 50 mg tablet 50 mg PO DAILY 11/05/23 11/04/23 History meloxicam 15 mg tablet 15 mg PO DAILY 05/31/25 Unknown History Allergy/AdvReac Type Severity Reaction Status Date / Time No Known Allergies Allergy Verified 05/31/25 13:21 Family History (Updated 04/21/25 @ 13:32 by Sugar Reyes) Sister Cancer Grandmother Colon cancer Brother Cancer Father Hypertension Surgical History (Updated 05/31/25 @ 13:24 by Lisa Lorenz) History of cardiac catheterization History of hernia repair History of cholecystectomy Social History Smoking Status: Never smoker Smokeless tobacco user: chewing tobacco alcohol intake: never substance use type: does not use caffeine: Yes Type: carbonated beverages Number of servings: 6 Audit: Pertinent Findings Pertinent Findings EKG Perinent findings: 04/04/2024. Normal sinus rhythm rate 71 bpm normal EKG. Consult pertinent findings: Cardiology 08/15/2024. Bradycardia. Acute. No syncope or near syncope. Obtain 14-day event monitor. Hypertension. Chronic. Controlled. Recommendation Anesthesia Recommendation Anesthesia recommendation: OPTIMIZED for anesthesia
[2025-06-02] VITALS (8 sets, daily range): BP systolic 116–128; BP diastolic 76–97; PULSE 59–70; RESP 16; TEMP 36.1–36.3; O2SAT 96–100; BMI 27.0
[2025-06-02] MEDS: Lactated Ringers 1,000 ML 15 ML IV (07:39)
--- NOTE | 2025-06-02 07:52 | PCM.PRE.AN2 ---
ASA Classification* ASA Classification ASA Classification: 2 Assessment & Plan Anesthesia* Anesthesia Assessment Anesthesia Assessment: Discussed sedation and/or anesthesia options, risks, benefits, and alternatives with patient/parents/legal guardian/POA. Questions invited. The patient/parents/legal guardian/POA seems to understand and agrees to proceed with anesthesia plan. Reviewed the physical assessment, medical history, allergy history and patient home medications list prior to surgery/procedure/anesthetic and documented any changes. Performed airway and anesthesia risk assessments. Anesthesia Type Anesthesia Type: MAC Anesthesia Focused Assessment* Temperature: 97.3 F Pulse Rate: 70 Blood Pressure: 128/97 Respiratory Rate: 16 Pulse Ox: 100 Airway Assessment Mouth opens: >3 cm Mallampati Score: II Labs Anesthesia Preop lab: CBC WBC, (4.4-11.0) 5.9 K/mm3 12/12/24, 15:07 RBC, (4.6-6.2) 4.80 M/mm3 12/12/24, 15:07 Hgb, (13.0-16.5) 14.6 g/dL 12/12/24, 15:07 Hct, (40-54) 42.3 % 12/12/24, 15:07 Plt Count, (150-450) 146 K/mm3 L 12/12/24, 15:07 CHEMISTRY Potassium, (3.3-5.1) 3.4 mmol/L 12/12/24, 15:07 Sodium, (133-145) 136 mmol/L 12/12/24, 15:07 BUN, (4-19) 20 mg/dL H 12/12/24, 15:07 Creatinine, (0.70-1.20) 1.34 mg/dL H 12/12/24, 15:07 Glucose, (70-99) 87 mg/dL 12/12/24, 15:07 TSH, (0.358-3.740) 2.180 uIU/mL 07/19/24, 16:29 COAG Pre-Assessment Diagnosis/Proposed Procedure Planned Operative Procedure(s): COLONOSCOPY Anesthesia History 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 When Was Last Pacemaker Check QUESTION #4 FULL TEXT: You/Your Family Experience fever (hyperthermia) with Anesthesia Last Oral Intake Last Oral intake: Last Oral Intake NPO since 20:00 06/02/25 07:30 Meds taken in AM with sips of No 06/02/25 07:30 water? Meds patient instructed to take am of surgery PONV PONV - tree care foreman: PONV - tree care foreman Female No 05/31/25 13:22 HX of Motion Sickness No 05/31/25 13:22 HX of N/V After Surgery No 05/31/25 13:22 Non-Smoker Yes 05/31/25 13:22 Duration of Surgery greater No 05/31/25 13:22 than 60 minutes Number of Risk Factors 1 05/31/25 13:22 PONV Score Low Risk 05/31/25 13:22 Height & Weight Height & Weight: Anesthesia: Height & Weight Height 5 ft 11 in 06/02/25 07:30 Weight: 88 kg 06/02/25 07:30 Body Mass Index (BMI) 27.0 06/02/25 07:30 Respiratory Assessment Respiratory Assessment - tree care foreman: Respiratory Tract Infection Hx - tree care foreman Hx Respiratory Tract Infection No 05/31/25 13:22 STOP Sleep Apnea STOP Sleep Apnea - tree care foreman: STOP Sleep Apnea - tree care foreman Hx Hypertension Yes 05/31/25 13:22 Hx Sleep Apnea No 05/31/25 13:22 CPAP BIPAP Do you snore loudly (louder No 05/31/25 13:22 than talking or can be heard Do you often feel tired/ No 05/31/25 13:22 fatigued/ sleepy during daytime? Has anyone observed you stop No 05/31/25 13:22 breathing during sleep? STOP Results Negative 05/31/25 13:22 QUESTION #5 FULL TEXT : Do you snore loudly (louder than talking or can be heard through closed doors)? 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 Specify any problems Hx of Preganancy in last 3 N/A 05/31/25 13:22 Months Nurse Filling Out Transfusion [facility] 05/31/25 13:22 & Questions: Date: 05/31/25 05/31/25 13:22 Time: 05/31/25 13:22 Patient unable to answer at this time (ie. confused, unrespo /Reproduction History /Reproductive History - tree care foreman: /Reproductive Hx- tree care foreman Hx Now Gestational Age (in weeks): EDC: Hx Hx Para Hx Section SAB Active Medications Active Medications: Current Medications Generic Name Dose Route Start Last Admin Trade Name Freq PRN Reason Stop Dose Admin Lactated Ringer's 1,000 mls @ 15 mls/hr 06/02/25 07:15 06/02/25 07:39 IV 15 mls/hr .Q48H GERMÁN Administration PFSH Medical History Wears glasses Arthritis Gastric reflux Non-smoker Cardiology follow-up encounter History of left heart catheterization First degree AV block Bradycardia Dizziness Hypertension Home Medications ?Medication ?Instructions ?Recorded ?Last Taken ?Type amlodipine 10 mg tablet 10 mg PO DAILY 11/05/23 06/01/25 History losartan 50 mg tablet 50 mg PO DAILY 11/05/23 06/01/25 History meloxicam 15 mg tablet 15 mg PO DAILY 05/31/25 Unknown History Allergy/AdvReac Type Severity Reaction Status Date / Time No Known Allergies Allergy Verified 06/02/25 07:29 Family History Sister Cancer Grandmother Colon cancer Brother Cancer Father Hypertension Surgical History History of cardiac catheterization History of hernia repair History of cholecystectomy Social History Smoking Status: Never smoker Smokeless tobacco user: chewing tobacco alcohol intake: never substance use type: does not use caffeine: Yes Type: carbonated beverages Number of servings: 6 Review of Systems (Anesthesia) ROS Narrative System reviewed and no additional complaints, except as documented.
--- NOTE | 2025-06-02 08:20 | PCM.HP.STD ---
HPI - General General Date of Admission: 06/02/25 Date of Service: 06/02/25 Chief Complaint: Screening colonoscopy HPI Narrative The patient is a 59-year-old male who was seen for colonoscopy. He states that his last colonoscopy was about 20 years ago. He has noticed that he has been having softer stools/diarrhea recently. He denies any blood in his stools. No black or tarry stools. It sounds as though he does have a family history of colon cancer in one of his grandparents. He believes that his bowel function has never been the same since a cholecystectomy many years ago. [facility] Medical History Wears glasses Arthritis Gastric reflux Non-smoker Cardiology follow-up encounter History of left heart catheterization First degree AV block Bradycardia Dizziness Hypertension Home Medications ?Medication ?Instructions ?Recorded ?Last Taken ?Type amlodipine 10 mg tablet 10 mg PO DAILY 11/05/23 06/01/25 History losartan 50 mg tablet 50 mg PO DAILY 11/05/23 06/01/25 History meloxicam 15 mg tablet 15 mg PO DAILY 05/31/25 Unknown History Allergy/AdvReac Type Severity Reaction Status Date / Time No Known Allergies Allergy Verified 06/02/25 07:29 Family History Sister Cancer Grandmother Colon cancer Brother Cancer Father Hypertension Surgical History History of cardiac catheterization History of hernia repair History of cholecystectomy Social History Smoking Status: Never smoker Smokeless tobacco user: chewing tobacco alcohol intake: never substance use type: does not use caffeine: Yes Type: carbonated beverages Number of servings: 6 Vital Signs Vital Signs Vital Signs: 06/02/25 07:30 06/02/25 07:30 06/02/25 07:53 Temperature 97.3 F L 97.3 F L Temperature Source Temporal Pulse Rate 70 70 Respiratory Rate 16 16 Respiratory Pattern Normal Blood Pressure 128/97 H 128/97 H Blood Pressure Mean 107 Blood Pressure Source Monitor Blood Pressure Position Sitting Blood Pressure Location Left Arm Pulse Ox 100 100 Oxygen Delivery Method Room Air Weight Weight: 194 lb 0.108 oz Body Mass Index (BMI) 27.0 Physical Exam Const alert, oriented x3 and no apparent distress Assessment & Plan Assessment/Plan (1) Encounter for screening for malignant neoplasm of colon: PLAN: Plan Screening colonoscopy planned for today. Details of procedure as well as risks benefits and alternatives reviewed.
--- NOTE | 2025-06-02 09:02 | POSTOP.ANE_ITS ---
Anesthesia: Postop Eval I
--- NOTE | 2025-06-02 09:02 | PCM.POST.ANE ---
Anesthesia: Postop Eval I Current Vital Signs Temperature: 97.3 F Pulse Rate: 69 Blood Pressure: 116/90 Respiratory Rate: 16 Pulse Ox: 97 Oxygen Delivery Method: Room Air Assessment Airway patent: Yes Spontaneous unlabored respirations: Yes Mental status: Awake and Calm nausea: No Vomiting: No Anesthesia Complication: No Fluid Hydration Crystalloid volume administer (ml): 300 Total IV fluid infused: 300 Progress Note Anesthesia document: Postop Eval 1 completed: Yes
--- NOTE | 2025-06-02 09:03 | OP.COLON_ITS ---
Patient Name: Keshav Jose
--- NOTE | 2025-06-02 09:24 | POSTOPAN2_ITS ---
Anesthesia Postop Eval I Sum
--- NOTE | 2025-06-02 09:24 | PCM.POSTANE2 ---
Anesthesia Postop Eval I Sum Postop Eval Completion status Anesthesia document: Postop Eval 1 completed: Yes Anesthesia Postop Eval I Summary Anesthesia Postop Eval I Summary: Anesthesia Postop Eval I: Assessment Summary Airway patent Yes 06/02/25 09:02 SUSTAINABLE PRODUCTS MARKETING MANAGER.JDEF Spontaneous unlabored Yes 06/02/25 09:02 SUSTAINABLE PRODUCTS MARKETING MANAGER.JDEF respirations Mental status Awake,Calm 06/02/25 09:02 SUSTAINABLE PRODUCTS MARKETING MANAGER.JDEF nausea No 06/02/25 09:02 SUSTAINABLE PRODUCTS MARKETING MANAGER.JDEF Vomiting No 06/02/25 09:02 SUSTAINABLE PRODUCTS MARKETING MANAGER.JDEF Anesthesia Postop Eval I: Fluid Summary Crystalloid volume administer 300 06/02/25 09:02 SUSTAINABLE PRODUCTS MARKETING MANAGER.JDEF (ml) Colloids volume administered ( ml) Blood Product volume administered (ml) Total IV fluid infused 300 06/02/25 09:02 SUSTAINABLE PRODUCTS MARKETING MANAGER.JDEF Anesthesia Postop Eval I: Summary Notes Anesthesia Complication No 06/02/25 09:02 SUSTAINABLE PRODUCTS MARKETING MANAGER.JDEF Anesthesia Complication Comment: Post-operative progress note Anesthesia: Postop Eval II Evaluation Mental status: Awake Pain Level: 0 nausea: No Vomiting: No
== END 2025-06-02 09:37 | disposition home or self-care (01) ==
LOC: EN 07:11 → AC 07:13
PROVIDERS: PCP Family Medicine; Referring Provider Family Medicine; Visit Provider Surgery
PROC: 0DJD8ZZ Inspection of Lower Intestinal Tract, Via Natural or Artificial Opening Endoscopic (ICD-10-PCS; CPT 45378; principal; 2025-06-02 08:10)
DX: Z12.11 Encounter for screening for malignant neoplasm of colon (principal); K64.9 Unspecified hemorrhoids; I10 Essential (primary) hypertension; Z80.0 Family history of malignant neoplasm of digestive organs; Z90.49 Acquired absence of other specified parts of digestive tract; M19.90 Unspecified osteoarthritis, unspecified site; Z79.899 Other long term (current) drug therapy; Z79.1 Long term (current) use of non-steroidal anti-inflammatories (NSAID); F17.220 Nicotine dependence, chewing tobacco, uncomplicated
CPT/HCPCS: 45378; J2405

== ENCOUNTER → 2025-07-17 | Outpatient (CLI) | payer BC, SELFPAY ==
--- NOTE | 2025-07-17 14:18 | RAD_ITS ---
PROCEDURE: ELBOW MIN 3 VIEWS 07/17/2025 REASON FOR EXAM: RIGHT ELBOW PAIN X 1 MONTH, UNSURE OF INJURY TECHNIQUE: Procedure Code: RADEL Modality: DX Procedure: ELBOW MIN 3 VIEWS Laterality: Right COMPARISON: None. RAD/Elbow min 3 Views IMPRESSION: No significant joint effusion is seen. No significant arthritic process or joint narrowing is evident. No fracture, dislocation, or other significant osseous abnormality is seen. Reading Location: [place] [id number]
--- OUTSIDE RECORDS SUMMARY | 2025-07-17 20:19 | XMS RPT_ITS | CCD ---
Author Organization [facility] Care Team Providers Care Productivity Engineer Name Role Phone RAMON Huggins Attending Provider NATALIE SARAH CNP Referring Unavailable ROMELIADURAN DO Admitting Unavailable ROMELIADURAN DO Primary Care Unavailable ROMELIADURAN ESPINOZA DO Attending Unavailable NATALIE SARAH CNP Consulting Unavailable PROVIDER, UNKNOWN Consulting Unavailable PROVIDER, UNKNOWN Consulting Unavailable UNGERER, LEATHA RENDERING EQUIPMENT TENDER Admitting Unavailable UNGERER, LEATHA RENDERING EQUIPMENT TENDER Primary Care Unavailable UNGERER, LEATHA RENDERING EQUIPMENT TENDER Attending Unavailable NATALIE SARAH CNP Consulting Unavailable PROVIDER, UNKNOWN Consulting Unavailable PROVIDER, UNKNOWN Consulting Unavailable FISCHER, MALIA T Admitting Unavailable FISCHER, MALIA T Primary Care Unavailable FISCHER, MALIA T Attending Unavailable UNGERER, LEATHA RENDERING EQUIPMENT TENDER Consulting Unavailable PROVIDER, UNKNOWN Consulting Unavailable NATALIE SARAH CNP Referring Unavailable SHANNA, JAMIA E Admitting Unavailable SHANNA, JAMIA E Primary Care Unavailable SHANNA, JAMIA E Attending Unavailable NATALIE SARAH CNP Consulting Unavailable PROVIDER, UNKNOWN Consulting Unavailable PROVIDER, UNKNOWN Consulting Unavailable RAMON Huggins Attending Provider [phone] Sri Stevens MD Primary Care Provider Dr. Kirit Alvarado MD Attending Provider Dr. Kirit Alvarado MD Referring Provider Dr. Nacho Mariano MD [facility]ending [facility] RENDERING EQUIPMENT TENDER-Jack Ramos Referring Provider Dr. Nacho Mariano MD Referring Provider Sri Stevens MD Attending Provider [phone] Sri Stevens MD Referring Provider Hilda BURNETTE, Chalon Primary Care Provider [phone] Jenny BURNETTE, Dr. Beth Attending Provider Jenny BURNETTE, Dr. Beth Referring Provider García BRUNETTE, Dr. Griffith Attending Provider [facility] RENDERING EQUIPMENT TENDER-C, Jack Referring Provider García BURNETTE, Dr. Griffith Referring Provider Hilda BURNETTE, Sri Attending Provider Hilda BURNETTE, Chaldaily Referring Provider Hilda BURNETTE, Chalon Primary Care Provider [phone] García BURNETTE, Dr. Griffith Attending Provider Yoni BURNETTE, Dr. Cantrell Attending Provider Yoni BURNETTE, Dr. Cantrell Referring Provider [phone] Hilda BURNETTE, Chalon Primary Care Provider [phone] [facility] [phone] Hilda BURNETTE, Chaldaily Referring Provider [phone] Manda BURNETTE, Dr. Oscar Lackey Attending Physician Nacho Mariano Referring Unavailable Hilda, Chalon Primary Care Unavailable Nacho Mariano Attending Unavailable Hilda, Chalon Primary Care Unavailable Oscar Holman Consulting Unavailable Oscar Holman Attending Unavailable Hilda, Catherineon Referring Unavailable Nacho Mariano Referring Unavailable Hilda, Chalon Primary Care Unavailable Nacho Mariano Attending Unavailable Hilda, Chalon Primary Care Unavailable Kirit Alvarado Attending Unavailable Kirit Alvarado Referring Unavailable Hilda, Chalon Primary Care Unavailable Hilda, Sri Attending Unavailable Hilda, Sri Referring Unavailable Hilda, Chalon Primary Care Unavailable Hilda, Sri Attending Unavailable Hilda, Chalon Referring Unavailable VallejoÓscar Attending Unavailable Óscar Vallejo Referring Unavailable Hilda, Chalon Primary Care Unavailable Hilda, Chalon Primary Care Unavailable Oscar Holman Attending Unavailable Hilda, Chalon Referring Unavailable Hilda, Chalon Primary Care Unavailable Hilda, Catherineon Attending Unavailable Hilda, Chalon Referring Unavailable Hilda, Chalon Primary Care Unavailable Oscar Holman Attending Unavailable Sri Stevens Referring Unavailable McMorrow Jack WARE Referring Unavailable Sri Stevens Primary Care Unavailable Nacho Mariano Attending Unavailable Medications Current Medications Medication Drug Class(es) Dates Sig (Normalized) Sig (Original) amLODIPine 10 mg oral tablet (6 sources) Dihydropyridine Calcium Channel Benjamin Start: 11-05-2023 take 1 tablet by mouth once daily losartan potassium 50 mg oral tablet (6 sources) Angiotensin 2 Receptor Benjamin Start: 11-05-2023 take 1 tablet by mouth once daily Completed/Discontinued Medications Medication Drug Class(es) Dates Sig (Normalized) Sig (Original) meclizine hydrochloride 25 mg oral tablet (5 sources) Antiemetic Start: 04-04-2024 End: 08-15-2024 take 1 tablet by mouth every eight hours as needed for dizziness Meclizine 25 mg tablet Discontinued 25 mg PO EVERY 8 HOURS NEEDED as needed for Dizziness 20 0 April 04, 2024 10:49am August 15, 2024 10:17am nitrofurantoin, macrocrystals 25 mg / nitrofurantoin, monohydrate 75 mg oral capsule (5 sources) Nitrofuran Antibacterial Start: 01-03-2024 End: 01-10-2024 take 1 capsule by mouth every twelve hours at mealtime Nitrofurantoin Monohyd/M-Cryst (Macrobid) 100 mg capsule Discontinued 100 mg PO Q12H 14 7 0 January 03, 2024 12:00am January 09, 2024 12:00am January 10, 2024 12:06am must administer with a meal/food Problems Active Problems Problem Classification Problem Date Documented Date Episodic/Chronic Acute bronchitis (5 sources) Acute bronchitis co-occurrent with wheeze; Translations: [Acute bronchitis, unspecified] 04-12-2024 Episodic Conduction disorders (6 sources) First degree atrioventricular block; Translations: [Atrioventricular block, first degree] Onset: 09-13-2024 07-28-2024 Chronic Essential hypertension (8 sources) Hypertensive disorder; Translations: [Essential (primary) hypertension] Onset: 09-13-2024 08-15-2024 Chronic Gout and other crystal arthropathies (1 source) Gout, unspecified; Translations: [Gout, unspecified] Onset: 10-20-2024 Chronic Nonspecific chest pain (11 sources) Chest pain; Translations: [Chest pain, unspecified] 11-05-2023 Episodic Other ear and sense organ disorders (4 sources) Impacted cerumen, right ear; Translations: [Impacted cerumen] Onset: 11-02-2023 07-14-2023 Episodic Other screening for suspected conditions (not mental disorders or infectious disease) (4 sources) Patient encounter status; Translations: [Encounter for screening for malignant neoplasm of colon] Onset: 06-12-2025 04-21-2025 Episodic Poisoning by nonmedicinal substances (5 sources) Bee sting; Translations: [Toxic effect of venom of bees, accidental (unintentional), initial encounter] 04-12-2024 Episodic Past or Other Problems Problem Classification Problem Date Documented Da te Episodic/Chronic Cardiac dysrhythmias (8 sources) Bradycardia; Translations: [Bradycardia, unspecified] Onset: 09-13-2024 07-28-2024 Episodic Conditions associated with dizziness or vertigo (13 sources) Peripheral vertigo; Translations: [Other peripheral vertigo, unspecified ear] Onset: 09-13-2024 04-12-2024 Episodic Fluid and electrolyte disorders (1 source) Hypokalemia; Translations: [Hypokalemia] Onset: 10-06-2024 Episodic Noninfectious gastroenteritis (14 sources) Gastroenteritis; Translations: [Noninfective gastroenteritis and colitis, unspecified] Onset: 08-20-2024 07-14-2023 Episodic Other ear and sense organ disorders (8 sources) Impacted cerumen; Translations: [Impacted cerumen, right ear] Onset: 11-02-2023 07-14-2023 Episodic Other ear and sense organ disorders (1 source) Impacted cerumen in right ear; Translations: [Impacted cerumen, right ear] Onset: 11-02-2023 11-05-2023 Episodic Other gastrointestinal disorders (1 source) Diarrhea, unspecified; Translations: [Diarrhea, unspecified] Onset: 12-14-2024 Episodic Other non-traumatic joint disorders (1 source) Pain in left shoulder; Translations: [Pain in left shoulder] Onset: 12-29-2024 Episodic Results Test Name Value Interpretation Reference Range Facility Colonoscopy Reporton [address] [facility] Medical Records Department [facility] [place] [address] [place] [address] Colonoscopy Report MR#: [id number] Acct: [id number] Name: EUNICE BRIONES Rep #: [id number] : 1965 59 From: Oscar Holman MD PCP: Dr. Sri Stevens MD Status:[place] [facility] [place] Name: Eunice Briones Procedure Date: 06/02/2025 8:20 AM Date of : 1965 Age: 59 Procedure: Colonoscopy Indications: Screening for colorectal malignant neoplasm Providers: Oscar Holman MD Referring MD: Oscar Holman MD Medicines: Monitored Anesthesia Care Patient Profile: Refer to note in patient chart for documentation of history and physical. Last Colonoscopy: none. The patient's first colonoscopy is today. Complications: No immediate complications. Estimated blood loss: None. Procedure: Pre-Anesthesia Assessment: - Prior to the procedure, a History and Physical was performed, and patient medications and allergies were reviewed. The patient's tolerance of previous anesthesia was also reviewed. The risks and benefits of the procedure and the sedation options and risks were discussed with the patient. All questions were answered, and informed consent was obtained. Prior Anticoagulants: The patient has taken no anticoagulant or antiplatelet agents. ASA Grade Assessment: II - A patient with mild systemic disease. After reviewing the risks and benefits, the patient was deemed in satisfactory condition to undergo the procedure. After I obtained informed consent, the scope was passed under direct vision. Throughout the procedure, the patient's blood pressure, pulse, and oxygen saturations were monitored continuously. The colonoscope was introduced through the anus and advanced to the cecum, identified by appendiceal orifice and ileocecal valve. The ileocecal valve, appendiceal orifice, and rectum were photographed. The entire colon was well visualized. The colonoscopy was performed without difficulty. The patient tolerated the procedure well. The quality of the bowel preparation was adequate. Moderate Sedation: See the other procedure note for documentation of moderate sedation with intraservice time. Scope In: 8:32:56 AM Scope Withdrawal Time 0 hours 9 minutes 31 seconds Scope Out: 8:53:28 AM Total Procedure Duration Time 0 hours 20 minutes 32 seconds Findings: The perianal and digital rectal examinations were normal. Non-bleeding hemorrhoids were found during retroflexion. The hemorrhoids were moderate. The exam was otherwise without abnormality on direct and retroflexion views. Impression: - Non-bleeding hemorrhoids. - The examination was otherwise normal on direct and retroflexion views. - No specimens collected. Recommendation: - Discharge patient to home (ambulatory). - High fiber diet. - Repeat colonoscopy in 10 years for screening purposes. - Return to my office PRN. - Continue present medications. Procedure Code(s): --- Professional --- 06286, Colonoscopy, flexible; diagnostic, including collection of specimen(s) by brushing or washing, when performed (separate procedure) Diagnosis Code(s): --- Professional --- K64.9, Unspecified hemorrhoids Z12.11, Encounter for screening for malignant neoplasm of colon CPT copyright 2021 [employer]. All rights reserved. The codes documented in this report are preliminary and upon high school sports coach review may be revised to meet current compliance requirements. Oscar Holman MD 06/02/2025 9:03:09 AM This report has been signed electronically. Number of Addenda: 0 Note Initiated On: 06/02/2025 8:20 AM 06/02/25902 Date Oscar Holman MD Cosigner Signature: Date (if indicated) CC: Dr. Sri Stevens MD; Dr. Oscar Holman MD Date Dictated: 06/02/25819 Date Transcribed: Die Engraving Supervisor: ANGELA Signed [facility] MR/OP.PROVATosupa 06-02-2025 MR/OP.[facility] Medical Records Department [address] [place] [address] Provation Physician Letter MR#: [id number] Acct: [id number] Name: EUNICE BRIONES Rep #: [id number] : 1965 59 From: Oscar Holman MD PCP: Dr. Sri Stevens MD Status:REG SDC 06/02/2025 Sri Stevens Md Re : Colonoscopy procedure for Eunice Briones Dear Hilda This procedure was performed on Monday, June 02, 2025. My impressions and recommendations are as follows: Impressions : - Non-bleeding hemorrhoids. - The examination was otherwise normal on direct and retroflexion views. - No specimens collected. Recommendations : - Discharge patient to home (ambulatory). - High fiber diet. - Repeat colonoscopy in 10 years for screening purposes. - Return to my office PRN. - Continue present medications. My findings are described in the full procedure note, which is enclosed. If I can be of further assistance, please feel free to contact me at . Sincerely, Oscar Holman MD 06/02/2025 9:03:09 AM This report has been signed electronically. 06/02/25902 Date Oscar Holman MD Cosigner Signature: Date (if indicated) CC: Dr. Sri Stevens MD; Dr. Oscar Holman MD Date Dictated: 06/02/25819 Date Transcribed: Die Engraving Supervisor: ANGELA Signed [facility] MR/POSTOP.Damian 06-02-2025 MR/POSTOP.[facility] Medical Records Department [address] [place] [address] Anesthesia Postop Eval I 06/02/25 09 MR#: [id number] Acct: [id number] Name: EUNICE BRIONES Rep #: [id number] : 1965 59 From: Lee Ann Wayne CRNA PCP: Dr. Sri Stevens MD Status:REG [facility] [place] Race: C Location: [place] [address] Anesthesia: Postop Eval I Current Vital Signs Temperature: 97.3 F Pulse Rate: 69 Blood Pressure: 116/90 Respiratory Rate: 16 Pulse Ox: 97 Oxygen Delivery Method: Room Air Assessment Airway patent: Yes Spontaneous unlabored respirations: Yes Mental status: Awake and Calm nausea: No Vomiting: No Anesthesia Complication: No Fluid Hydration Crystalloid volume administer (ml): 300 Total IV fluid infused: 300 Progress Note Anesthesia document: Postop Eval 1 completed: Yes 06/02/25901 Date Lee Ann DeForeest PURCHASING COORDINATOR Cosigner Signature: Date CC: Signed [facility] MR/NCFGQNSY9iv 06-02-2025 [facility] Medical Records Department [address] [place] [address] Anesthesia Postop Eval II 06/02/25923 MR#: [id number] Acct: [id number] Name: EUNICE BRIONES Rep #: [id number] : 1965 59 From: Ashutosh Villar MD PCP: Dr. Sri Stevens MD Status:REG [facility] [place] Race: C Location: [place] [address] Anesthesia Postop Eval I Sum Postop Eval Completion status Anesthesia document: Postop Eval 1 completed: Yes Anesthesia Postop Eval I Summary Anesthesia Postop Eval I Summary: Anesthesia Postop Eval I: Assessment Summary Airway patent Yes 06/02/25 09:02 PURCHASING COORDINATOR.JDEF Spontaneous unlabored Yes 06/02/25 09:02 PURCHASING COORDINATOR.JDEF respirations Mental status Awake,Calm 06/02/25 09:02 PURCHASING COORDINATOR.JDEF nausea No 06/02/25 09:02 PURCHASING COORDINATOR.JDEF Vomiting No 06/02/25 09:02 PURCHASING COORDINATOR.JDEF Anesthesia Postop Eval I: Fluid Summary Crystalloid volume administer 300 06/02/25 09:02 PURCHASING COORDINATOR.JDEF (ml) Colloids volume administered ( ml) Blood Product volume administered (ml) Total IV fluid infused 300 06/02/25 09:02 PURCHASING COORDINATOR.JDEF Anesthesia Postop Eval I: Summary Notes Anesthesia Complication No 06/02/25 09:02 PURCHASING COORDINATOR.JDEF Anesthesia Complication Comment: Post-operative progress note Anesthesia: Postop Eval II Evaluation Mental status: Awake Pain Level: 0 nausea: No Vomiting: No 06/02/25923 Date Ashutosh Villar MD Cosigner Signature: Date CC: Signed [facility] MR/Roldan 05-31-2025 [facility] [address] [place] [address] PAT - Anesthesia 05/31/25 1409 MR#: [id number] Acct: [id number] Name: EUNICE BRIONES Rep #: [id number] : 1965 59 From: Ashutosh Villar MD PCP: Dr. Sri Stevens MD Status:PRE SD Y Race: C Location: [place] Pre-Assessment Diagnosis/Proposed Procedure Planned Operative Procedure(s): COLONOSCOPY Anesthesia History Anesthesia History - market director: Anesthesia History - market director Hx Hospitalization No 05/31/25 13:22 Any Problems With Anesthesia No 05/31/25 13:22 Cholinesterase deficiency No 05/31/25 13:22 You/Your Family Experience No 05/31/25 13:22 fever (hyperthermia) with Relationship Recent Exposure to Contagious Disease Does patient have nerve No 05/31/25 13:22 stimulator Patient instructed to have device shut off --Does patient have Pacemaker or ICD? When Was Last Pacemaker Check QUESTION #4 FULL TEXT: You/Your Family Experience fever (hyperthermia) with Anesthesia Last Oral Intake Last Oral intake: Last Oral Intake NPO since Meds taken in AM with sips of water? Meds patient instructed to take am of surgery PONV PONV - market director: PONV - market director Female No 05/31/25 13:22 HX of Motion Sickness No 05/31/25 13:22 HX of N/V After Surgery No 05/31/25 13:22 Non-Smoker Yes 05/31/25 13:22 Duration of Surgery greater No 05/31/25 13:22 than 60 minutes Number of Risk Factors 1 05/31/25 13:22 PONV Score Low Risk 05/31/25 13:22 Height Weight Height Weight: Anesthesia: Height Weight Height 5 ft 11 in 04/21/25 13:32 Respiratory Assessment Respiratory Assessment - market director: Respiratory Tract Infection Hx - market director Hx Respiratory Tract Infection No 05/31/25 13:22 STOP Sleep Apnea STOP Sleep Apnea - market director: STOP Sleep Apnea - market director Hx Hypertension Yes 05/31/25 13:22 Hx Sleep Apnea No 05/31/25 13:22 CPAP BIPAP Do you snore loudly (louder No 05/31/25 13:22 than talking or can be heard Do you often feel tired/ No 05/31/25 13:22 fatigued/ sleepy during daytime? Has anyone observed you stop No 05/31/25 13:22 breathing during sleep? STOP Results Negative 05/31/25 13:22 QUESTION #5 FULL TEXT : Do you snore loudly (louder than talking or can be heard through closed doors)? Tobacco Use History Tobacco Use History - market director: Tobacco Use History - market director Tobacco Use Smoking Status Never smoker 05/31/25 13:22 Hx Tobacco Use Yes: CHEWS DAILY, NO 05/31/25 13:22 CIGARETTES Years Smoking Packs Smoked per Day Smoking Cessation Date was within the last 15 years Hx Smoking Cessation Date Hx Smoking Cessation Counseling Hematologic Medial History Hematologic Hx - market director: Hematologic Medical Hx - rn documentation specialist Hx of Blood Transfusion No 05/31/25 13:22 Hx of Transfusion in last 3 No 05/31/25 13:22 Months Date of Last Transfusion (if within last 3 months) Ever experience any problems No 05/31/25 13:22 with transfusion(s)? Specify any problems Hx of Preganancy in last 3 N/A 05/31/25 13:22 Months Nurse Filling Out Transfusion VLEHSP[place]ORD 05/31/25 13:22 Questions: Date: 05/31/25 05/31/25 13:22 Time: :05/31/25 13:22 Patient unable to answer at this time (ie. confused, unrespo /Reproduction History /Reproductive History - market director: /Reproductive Hx- market director Hx Now Gestational Age (in weeks): EDC: Hx Hx Para [facility] History (Updated 05/31/25 @ 13:27 by Lisa Lorenz) Wears glasses Arthritis Gastric reflux Non-smoker Cardiology follow-up encounter History of left heart catheterization First degree AV block Bradycardia Dizziness Hypertension Home Medications ???Medication ???Instructions ???Recorded ???Last Taken ???Type amlodipine 10 mg tablet 10 mg PO DAILY 11/05/2324 H istory losartan 50 mg tablet 50 mg PO DAILY 11/05/2324 H istory meloxicam 15 mg tablet 15 mg PO DAILY 05/31/25 Unknown Hi story Allergy/AdvReac Type Severity Reaction Status Date / Time No Known Allergies Allergy Verified 05/31/25 13:21 Family History (Updated 04/21/25 @ 13:32 by Sugar Reyes) Sister Cancer Grandmother Colon cancer Brother Cancer Father Hypertension Surgical History (Updated 05/31/25 @ 13:24 by Lisa Lorenz) History of cardiac catheterization History of hernia repair History of cholecystectomy Social History (Reviewed 08/15/24 @ 09 (more content not included)... Normal [facility] Surgery Visit Reporton 04-21 Surgery Visit Report [facility] [address] [place] [address]. [address] [place] [address] OFFICE VISIT Date of Service: 04/21/25 MR#: [id number] Acct: [id number] Name: EUNICE BRIONES Rep #: [id number] : 1965 Provider: Dr. Oscar pacheco MD Age/Sex: 59/M Location: [facility] Status: Signed Intake Vital Signs 08/15/24 09:15 04/21/25 13:32 Height 5 ft 11 in 5 ft 11 in Weight: 195 lb BMI 27.1 Body Surface Area 511 BP 146/89 H Blood Pressure Location Rt brachial Position Sitting Respiration 17 Pulse 72 Pulse Source Monitor Pulse Oximetry (%) 96 Oxygen Delivery Method room air Intake Visit Reasons: CHANGE IN BOWELS Chief Complaint: bowel changes Is patient in pain?: No Allergies No Known Allergies Allergy (Verified 04/21/25 13:33) Medications ???Medication ???Instructions ???Recorded ???Confirmed ???Type amlodipine 10 mg tablet 10 mg PO DAILY 11/05/23 04/21/25 H istory losartan 50 mg tablet 50 mg PO DAILY 11/05/23 04/21/25 H istory PFSH Medical History History of left heart catheterization First degree AV block Bradycardia Dizziness Hypertension Surgical History History of hernia repair History of cholecystectomy Family History (Updated 04/21/25 @ 13:32 by Sugar Reyes) Sister Cancer Grandmother Colon cancer Brother Cancer Father Hypertension Social History Smoking Status: Never smoker Smokeless tobacco user: chewing tobacco alcohol intake: never substance use type: does not use caffeine: Yes Type: carbonated beverages Number of servings: 6 HPI HPI HPI: The patient is a 59-year-old male who was seen in the office today to schedule colonoscopy. He states that his last colonoscopy was about 20 years ago. He has noticed that he has been having softer stools/diarrhea recently. He denies any blood in his stools. No black or tarry stools. It sounds as though he does have a family history of colon cancer in one of his grandparents. He believes that his bowel function has never been the same since a cholecystectomy many years ago. He presents today to get scheduled for colonoscopy ROS General General: Yes weight change and fatigue; No appetite, colon cancer, breast cancer or weakness HEENT HEENT: No difficulty swallowing, eye injury, eye surgery, swollen glands or hoarseness Endo Endocrine: No thyroid disease, diabetes mellitus, thyroid cancer, Hair loss, heat intolerance or cold intolerance Skin Skin: No rash or changing moles Musc Musculoskeletal: Yes arthritis; No back problems, rheumatoid arthritis, gout or joint pain Cardio Cardiovascular: Yes high blood pressure; No murmur, pacemaker, heart disease, atrial fibrillation, heart attack, heart stent, palpitations, shortness of breath with exertion or chest pain Psych Psychiatric: No depression, anxiety or hearing voices Resp Respiratory: No shortness of breath, No sleep apnea, No cough, No COPD, No asthma, No emphysema and No wheezing Gastro Gastrointestinal: Yes abdominal pain, Yes nausea or vomiting, Yes diarrhea, Yes constipation, Yes blood in stool, Yes acid reflux, Yes hemorrhoids, No ulcers, No gallbladder problem and No black,tarry stools Suman Hematologic: No blood thinners, No blood disorders, No bleeding, No anemia and No blood clots Neuro Neurologic: No system reviewed and no additional complaints, except as documented, No as per HPI, No abnormal gait, No abnormal hearing, No abnormal movements, No abnormal speech, No behavioral changes, No burning sensations, No confusion, No convulsions, No disequilibrium, No dizziness, No localized weakness, No frequent falls, No headache(s), No lack of coordination, No loss of vision, No memory loss, No numbness, No other visual disturbances, No radicular pain, No restless legs, No sensory deficit, No syncope, No tingling, No tremor(s), No weakness and No other Exam Const General: cooperative, healthy appearing and comfortable [facility] Head: normal to inspection, normocephalic and atraumatic Eyes General: appearance normal, both eyes and all related structures Neck Neck: normal visual inspection Resp Effort Inspection: normal respiratory effort Assessment and Plan Assessment and Plan (1) Encounter for screening for malignant neoplasm of colon: Status: Acute Plan: The patient is a 59-year-old male in need of a colonoscopy. His last colonoscopy was about 20 years ago. He states that more recently he has noticed some increase in soft stools or diarrhea. He denies any black or tarry stools. He does have a family history of colon cancer in a grandparent. We discussed the details of (more content not included)... Normal [facility] Shoulder min 2 Viewson 12-23 Shoulder min [address] [facility] Imaging Services [address] [place] [address] Shoulder min 2 Views MR#: [id number] Acct: [id number] Name: EUNICE BRIONES Rep #: [id number] : 1965 M 59 From: Miguel hooper MD PCP: Dr. Sri Stevens MD Status: REG CLI Study: Shoulder min 2 Views Date of Exam: 12/23/24 Exam# [id number] Ordering Dr: Sri Stevens MD PROCEDURE: SHOULDER MIN 2 VIEWS 12/23/2024 REASON FOR EXAM: INJURY TO SHOULDER TECHNIQUE: Four views of the left shoulder were obtained. COMPARISON: None FINDINGS: Bones: No fracture or dislocation. Joints: Degenerative arthrosis of the acromioclavicular joint. Mild degree of joint space narrowing of the glenohumeral joint. Soft tissues: Soft tissues are unremarkable. Other: RAD/Shoulder min 2 Views IMPRESSION: Degenerative changes of the acromioclavicular joint as well as the glenohumeral joint. Reading Location: [facility] CC: Dr. Sri Stevens MD Die Engra[employer] Supervisor: Signed Normal [facility] Abdomen Single Viewon 2024 Abdomen Single View [facility] Imaging Services [address] [place], [place] [id number] Abdomen Single View MR#: [id number] Acct: [id number] Name: EUNICE BRIONES Rep #: [id number] : 1965 M 59 From: Zeeshan Bojorquez PCP: Dr. Sri Stevens MD Status: REG CLI Study: Abdomen Single View Date of Exam: 12/12/24 Exam# [id number] Ordering Dr: Óscar Vallejo MD PROCEDURE: ABDOMEN SINGLE VIEW 12/12/2024 REASON FOR EXAM: ABDOMINAL PAIN TECHNIQUE: Two-view supine abdomen. COMPARISON: Chest x-ray of 04/04/2024 RAD/Abdomen Single View IMPRESSION: Right upper quadrant abdominal surgical clips are seen. Air and stool are seen throughout the large bowel and rectum. Mildly dilated small bowel loops are seen centrally and to the left especially, concerning for adynamic ileus (versus early/partial small bowel obstruction). No mass or mass effect is seen. Degenerative changes are seen of the visualized spine, particularly the lower lumbar spine. Reading Location: [facility] CC: Dr. Sri Stevens MD; Dr. Óscar Vallejo MD Die Engraving Supervisor: Signed Normal [facility] Absolute lymphocyte countOrd ered By: Óscar Vallejo on 12-12-2024 Lymphocytes Auto (Unsp spec) [#/Vol] 1.49 10*3/uL 0.83-4.51 [facility] Absolute neutrophil countOrd ered By: Óscar Vallejo on 12-12-2024 Neutrophils (Bld) [#/Vol] 3.5 10*3/uL 2.0-7.7 [facility] Anion gap in Serum or Plasma Ordered By: Óscar Vallejo on 12-12-2024 Anion gap [Moles/Vol] 14 mmol/L 5- [facility] Automated lymphocyte count a s percentage of total leukocytesOrdered By: Óscar Vallejo on 12-12-2024 Lymphocytes/100 WBC Auto (Unsp spec) 25.4 % - [facility] BUN/creatinine ratioOrdered By: Óscar Vallejo on 12-12-2024 Urea nitrogen/Creatinine [Mass ratio] 14.7 mg/mg 10- [facility] Basophil percentageOrdered B y: Óscar Vallejo on 12-12-2024 Basophils/100 WBC (Bld) 0.5 % 0-1 [facility] Bilirubin, totalOrdered By: Óscar Vallejo on 12-12-2024 Bilirubin [Mass/Vol] 1.25 mg/dL 0.00-1.30 [facility] CBC W/Diff, Automatedon 12-01 Absolute Lymph 1.49 X10 3/uL Normal 0.83-4.51 [facility] Comment on above: Performed By: #### L 500.4050, L100.0100, L501.2450 #### [facility] Laboratory [address] [place], [address] Absolute Neut 3.5 X10 3/uL Normal 2.0-7.7 [facility] Comment on above: Performed By: #### L 500.4050, L100.0100, L501.2450 #### [facility] [address] [place], [address] Basophils/100 WBC (Bld) 0.5 % Normal 0-1 [facility] Comment on above: Performed By: #### L 500.4050, L100.0100, L501.2450 #### [facility] [address] [place], [address] Eosinophils/100 WBC (Bld) 0.9 % Normal 0-5 [facility] Comment on above: Performed By: #### L 500.4050, L100.0100, L501.2450 #### [facility] [address] [place], [address] Erythrocyte distribution width (RBC) [Ratio] 13.7 % Normal 11.6-14.6 [facility] Comment on above: Performed By: #### L 500.4050, L100.0100, L501.2450 #### [facility] [address] [place], [address] Hematocrit (Bld) [Volume fraction] 42.3 % Normal 40-54 [facility] Comment on above: Performed By: #### L 500.4050, L100.0100, L501.2450 #### [facility] [address] [place], [address] Hemoglobin (Bld) [Mass/Vol] 14.6 g/dL Normal 13.0-16.5 [facility] Comment on above: Performed By: #### L 500.4050, L100.0100, L501.2450 #### [facility] [address] [place], [address] IG% 0.200 Normal 0.0-0.9 [facility] Comment on above: Result Comment: IG% - Immature Granulocytes (promyelocytes, myelocytes and metamyelocytes) > 1% indicates that a LEFT SHIFT is Present. Performed By: #### L 500.4050, L100.0100, L501.2450 #### [facility] [address] [place], [address] Lymphocytes/100 WBC (Bld) 25.4 % Normal 19-41 [facility] Comment on above: Performed By: #### L 500.4050, L100.0100, L501.2450 #### [facility] [address] [place], [address] MCH (RBC) [Entitic mass] 30.4 pg Normal 27.0-32.0 [facility] Comment on above: Performed By: #### L 500.4050, L100.0100, L501.2450 #### [facility] [address] [place], [address] MCHC (RBC) [Mass/Vol] 34.5 g/dL Normal 32-36 [facility] Comment on above: Performed By: #### L 500.4050, L100.0100, L501.2450 #### [facility] [address] [place], [address] MCV (RBC) [Entitic vol] 88.1 fL Normal 80-94 [facility] Comment on above: Performed By: #### L 500.4050, L100.0100, L501.2450 #### [facility] [address] [place], [address] Monocytes/100 WBC (Bld) 12.6 % High 0-10 [facility] Comment on above: Performed By: #### L 500.4050, L100.0100, L501.2450 #### [facility] [address] [place], [address] Neutrophils/100 WBC (Bld) 60.4 % Normal 47-70 [facility] Comment on above: Performed By: #### L 500.4050, L100.0100, L501.2450 #### [facility] [address] [place], [address] Nucleated RBC (Bld) [#/Vol] 0 10*3/uL Normal 0-5 [facility] Comment on above: Performed By: #### L 500.4050, L100.0100, L501.2450 #### [facility] [address] [place], [address] Platelet mean volume (Bld) [Entitic vol] 10.8 fL Normal 6.2-12.0 [facility] Comment on above: Performed By: #### L 500.4050, L100.0100, L501.2450 #### [facility] [address] [place], [address] Platelets (Bld) [#/Vol] 146 10*3/uL Low 150-450 [facility] Comment on above: Performed By: #### L 500.4050, L100.0100, L501.2450 #### [facility] [address] [place], [address] RBC (Bld) [#/Vol] 4.80 10*6/uL Normal 4.6-6.2 [facility] Comment on above: Performed By: #### L 500.4050, L100.0100, L501.2450 #### [facility] [address] [place], [address] RDW SD 44.4 fl High 35.1-43.9 [facility] Comment on above: Performed By: #### L 500.4050, L100.0100, L501.2450 #### [facility] [address] [place], [address] WBC (Bld) [#/Vol] 5.9 10*3/uL Normal 4.4-11.0 [facility] Comment on above: Performed By: #### L 500.4050, L100.0100, L501.2450 #### [facility] [address] [place], [address] Carbon dioxide, total [Moles /volume] in Central venous bloodOrdered By: Óscar Vallejo on 12-12-2024 CO2 [Moles/Vol] 19.4 mmol/L Low 21.0-32.0 [facility] Chloride assayOrdered By: Ramon Vallejo on 12-12-2024 Chloride [Moles/Vol] 103 mmol/L 98-108 [facility] Comprehensive Metabolic Prof ilon 12-12-2024 Albumin [Mass/Vol] 4.4 g/dL Normal 3.4-4.8 [facility] Comment on above: Performed By: #### L 500.4050, L100.0100, L501.2450 #### [facility] [address] [place], [address] Albumin/Globulin [Mass ratio] 1.4 {ratio} Normal 0.9-2.4 [facility] Comment on above: Performed By: #### L 500.4050, L100.0100, L501.2450 #### [facility] [address] [place], [address] ALK PHOS 128 U/L Normal 40-129 [facility] Comment on above: Performed By: #### L 500.4050, L100.0100, L501.2450 #### [facility] [address] [place], [address] ALT [Catalytic activity/Vol] 19 U/L Normal <=46 [facility] Comment on above: Performed By: #### L 500.4050, L100.0100, L501.2450 #### [facility] [address] [place], [address] AST [Catalytic activity/Vol] 22 U/L Normal <=37 [facility] Comment on above: Performed By: #### L 500.4050, L100.0100, L501.2450 #### [facility] [address] [place], [address] Bilirubin [Mass/Vol] 1.25 mg/dL Normal 0.00-1.30 [facility] Comment on above: Performed By: #### L 500.4050, L100.0100, L501.2450 #### [facility] [address] [place], [address] BUN/CRE 14.7 RATIO Normal 10-20 [facility] Comment on above: Performed By: #### L 500.4050, L100.0100, L501.2450 #### [facility] [address] [place], [address] Calcium [Mass/Vol] 9.2 mg/dL Normal 7.6-11.0 [facility] Comment on above: Performed By: #### L 500.4050, L100.0100, L501.2450 #### [facility] [address] [place], [address] Chloride [Moles/Vol] 103 mmol/L Normal 98-108 [facility] Comment on above: Performed By: #### L 500.4050, L100.0100, L501.2450 #### [facility] [address] [place], [address] CO2 [Moles/Vol] 19.4 mmol/L Low 21.0-32.0 [facility] Comment on above: Performed By: #### L 500.4050, L100.0100, L501.2450 #### [facility] [address] [place], [address] Creatinine [Mass/Vol] 1.34 mg/dL High 0.70-1.20 [facility] Comment on above: Performed By: #### L 500.4050, L100.0100, L501.2450 #### [facility] [address] [place], [address] GAP 14 Normal 5-15 [facility] Comment on above: Performed By: #### L 500.4050, L100.0100, L501.2450 #### [facility] [address] [place], [address] GFR/1.73 sq M.predicted among non-blacks MDRD (S/P/Bld) [Vol rate/Area] 60 mL/min/{1.73_m2} Normal >60 [facility] Comment on above: Result Comment: mL/m in/1.73m2 CKD-EPI Creatinine Equation (2020) Performed By: #### L 500.4050, L100.0100, L501.2450 #### [facility] [address] [place], [address] Globulin (S) [Mass/Vol] 3.1 g/dL Normal 2.2-4.2 [facility] Comment on above: Performed By: #### L 500.4050, L100.0100, L501.2450 #### [facility] [address] [place], [address] Glucose [Mass/Vol] 87 mg/dL Normal 70-99 [facility] Comment on above: Performed By: #### L 500.4050, L100.0100, L501.2450 #### [facility] [address] [place], [address] Potassium [Moles/Vol] 3.4 mmol/L Normal 3.3-5.1 [facility] Comment on above: Performed By: #### L 500.4050, L100.0100, L501.2450 #### [facility] [address] [place], [address] Sodium [Moles/Vol] 136 mmol/L Normal 133-145 [facility] Comment on above: Performed By: #### L 500.4050, L100.0100, L501.2450 #### [facility] [address] [place], [address] T PROT 7.6 g/dL Normal 5.9-8.4 [facility] Comment on above: Performed By: #### L 500.4050, L100.0100, L501.2450 #### [facility] [address] [place], [address] Urea nitrogen [Mass/Vol] 20 mg/dL High 4-19 [facility] Comment on above: Performed By: #### L 500.4050, L100.0100, L501.2450 #### [facility] [address] [place], [address] Eosinophil percentageOrdered By: Óscar Vallejo on 12-12-2024 Eosinophils/100 WBC (Bld) 0.9 % 0-5 [facility] Erythrocyte distribution wid th ratioOrdered By: Óscar Vallejo on 12-12-2024 Erythrocyte distribution width (RBC) [Ratio] 13.7 % 11.6-14.6 [facility] Erythrocyte distribution wid th standard deviationOrdered By: Óscar Valeljo on 12-12-2024 Erythrocyte distribution width (RBC) [Ratio] 44.4 fl High 35.1-43.9 [facility] Glomerular filtration rate ( GFR) estimation/1.73 sq m using serum, plasma, or whole bOrdered By: Óscar Vallejo on 12-12-2024 GFR/1.73 sq M.predicted among non-blacks MDRD (S/P/Bld) [Vol rate/Area] 60 mL/min/{1.73_m2} >60 [facility] Comment on above: mL/min/1.73m2 CKD-EP I Creatinine Equation (2020) Hematocrit Auto (Bld) [Volum e fraction]Ordered By: Óscar Vallejo on 12-12-2024 Hematocrit (Bld) [Volume fraction] 42.3 % 40-54 [facility] Hemoglobin measurementOrdere d By: Óscar Vallejo on 12-12-2024 Hemoglobin (Bld) [Mass/Vol] 14.6 g/dL 13.0-16.5 [facility] Immature granulocytes/100 WB C Auto (Bld)Ordered By: Óscar Vallejo on 12-12-2024 Immature granulocytes/100 WBC (Bld) 0.200 % 0.0-0.9 [facility] Comment on above: IG% - Immature Granu locytes (promyelocytes, myelocytes and metamyelocytes) > 1% indicates that a LEFT SHIFT is Present. Laboratory - Chemistry and C hemistry - challengeOrdered By: Óscar Vallejo on 12-12-2024 AST [Catalytic activity/Vol] 22 U/L <38 [facility] Lipaseon 12-12-2024 Lipase [Catalytic activity/Vol] 40 U/L Normal 13-75 [facility] Comment on above: Result Comment: Sonu varghese note: LIPASE revised reference range effective 22. New Lipase methodology. Expected to produce lower values than the previous assay method. NEW Reference Range: 13 - 75 U/L Performed By: #### L 500.4050, L100.0100, L501.2450 #### [facility] [address] [place], [address] Lipase measurementOrdered By : Óscar Vallejo on 12-12-2024 Lipase [Catalytic activity/Vol] 40 U/L 13-75 [facility] Comment on above: Please note:LIPASE r evised reference range effective 22. New Lipase methodology. Expected to produce lower values than the previous assay method. NEW Reference Range: 13 - 75 U/L MCV (mean corpuscular volume ) determinationOrdered By: Óscar Vallejo on 12-12-2024 MCV (RBC) [Entitic vol] 88.1 fL 80-94 [facility] Mean corpuscular hemoglobin (MCH) determinationOrdered By: Óscar Vallejo on 12-12-2024 MCH (RBC) [Entitic mass] 30.4 pg 27.0-32.0 [facility] Mean corpuscular hemoglobin concentration (MCHC) determinationOrdered By: Óscar Vallejo on 12-12-2024 MCHC (RBC) [Mass/Vol] 34.5 g/dL 32-36 [facility] Mean platelet volume determi nationOrdered By: Óscar Vallejo on 12-12-2024 Platelet mean volume (Bld) [Entitic vol] 10.8 fL 6.2-12.0 [facility] Monocyte percentageOrdered B y: Óscar Vallejo on 12-12-2024 Monocytes/100 WBC (Bld) 12.6 % High 0-10 [facility] Neutrophil percentageOrdered By: Óscar Vallejo on 12-12-2024 Neutrophils/100 WBC (Bld) 60.4 % 47-70 [facility] Nucleated red blood cell per centageOrdered By: Óscar Vallejo on 12-12-2024 Nucleated RBC/100 WBC (Bld) [Ratio] 0 % 0-5 [facility] Platelet countOrdered By: Ramon Vallejo on 12-12-2024 Platelets (Bld) [#/Vol] 146 10*3/uL Low 150-450 [facility] Potassium measurement (mass/ volume)Ordered By: Óscar Vallejo on 12-12-2024 Potassium (Unsp spec) [Mass/Vol] 3.4 mmol/L 3.3-5.1 [facility] RBC Auto (Bld) [#/Vol]Ordere d By: Óscar Vallejo on 12-12-2024 RBC (Bld) [#/Vol] 4.80 10*6/uL 4.6-6.2 [facility] Serum creatinine measurement (mass/volume)Ordered By: Óscar Vallejo on 12-12-2024 Creatinine [Mass/Vol] 1.34 mg/dL High 0.70-1.20 [facility] Serum globulin measurementOr dered By: Óscar Vallejo on 12-12-2024 Globulin (S) [Mass/Vol] 3.1 g/dL 2.2-4.2 [facility] Serum glucose measurement (m ass/volume)Ordered By: Óscar Vallejo on 12-12-2024 Glucose [Mass/Vol] 87 mg/dL 70-99 [facility] Serum or plasma alanine august otransferase (ALT) measurementOrdered By: Óscar Vallejo on 12-12-2024 ALT [Catalytic activity/Vol] 19 U/L <47 [facility] Serum or plasma albumin vita urement (mass/volume)Ordered By: Óscar Vallejo on 12-12-2024 Albumin [Mass/Vol] 4.4 g/dL 3.4-4.8 [facility] Serum or plasma albumin/glob ulin mass ratioOrdered By: Óscar Vallejo on 12-12-2024 Albumin/Globulin [Mass ratio] 1.4 {ratio} 0.9-2.4 [facility] Serum or plasma alkaline tomasz sphatase measurementOrdered By: Óscar Vallejo on 12-12-2024 ALP [Catalytic activity/Vol] 128 U/L 40-129 [facility] Serum or plasma calcium vita urement (mass/volume)Ordered By: Óscar Vallejo on 12-12-2024 Calcium [Mass/Vol] 9.2 mg/dL 7.6-11.0 [facility] Serum or plasma urea nitroge n measurement (mass/volume)Ordered By: Óscar Vallejo on 12-12-2024 Urea nitrogen [Mass/Vol] 20 mg/dL High 4-19 [facility] Sodium levelOrdered By: Óscar Vallejo on 12-12-2024 Sodium [Moles/Vol] 136 mmol/L 133-145 [facility] Total proteinOrdered By: Aileen Vallejo on 12-12-2024 Protein [Mass/Vol] 7.6 g/dL 5.9-8.4 [facility] White blood cell (WBC) count Ordered By: Óscar Vallejo on 12-12-2024 WBC (Bld) [#/Vol] 5.9 10*3/uL 4.4-11.0 [facility] Foot min 3 Viewson Foot min [address] [facility] Imaging Services [address] [place] [address] Foot min 3 Views MR#: [id number] Acct: [id number] Name: EUNICE BRIONES Rep #: [id number] : 1965 M 58 From: Rishi Ireland PCP: Dr. Sri Stevens MD Status: REG CLI Study: Foot min 3 Views Date of Exam: 10/07/24 Exam# [id number] Ordering Dr: Sri Stevens MD PROCEDURE: FOOT MIN 3 VIEWS REASON FOR EXAM: Pain TECHNIQUE: Three views of the left foot COMPARISON: None. FINDINGS: See impression RAD/Foot min 3 Views IMPRESSION: Negative for acute fracture or malalignment. Healed chronic fracture deformity of the 5th metatarsal. Mild 1st MTP joint osteoarthritis. No suspicious erosions. Vascular calcifications. Reading Location: [facility] CC: Dr. Sri Stevens MD Die Engraving Supervisor: Signed Normal [facility] L499.5025on 09-23-2024 Potassium [Moles/Vol] 3.3 mmol/L Low 3.5-5.1 [facility] Comment on above: Order Comment: Order Date: 09/23/24 Order Info: 2823-3 - K Performed By: #### L 499.5025 #### [facility] [address] [place], [place], [address] Serum or plasma potassium me asurementOrdered By: Sri Stevens on 09-23-2024 Potassium [Moles/Vol] 3.3 mmol/L Low 3.5-5.1 [facility] Cardiology Visit Reporton Cardiology Visit Report [facility] [address] [place] [address] OFFICE VISIT Date of Service: 08/15/24 MR#: [id number] Acct: [id number] Name: EUNICE BRIONES Rep #: [id number] : 1965 Provider: Dr. Nacho hutson MD Age/Sex: 58/M [place] [facility] Status: Signed with Addenda ADDENDUM by Dr. Nacho Mariano MD on 08/15/24 at 1001 HPI History of Present Illness Details: ECG in office today showed normal sinus rhythm at 63 bpm and is normal. This is unchanged from multiple old EKGs in his chart dating back to 2012. Assessment and Plan Assessment and Plan (1) Bradycardia: Status: Acute (2) Hypertension: Status: Chronic Qualifiers: Hypertension type: primary hypertension Qualified Code(s): I10 - Essential (primary) hypertension (3) Dizziness: Status: Acute Orders: Orders 12 Lead E[place] performed [place] [facility] [place] I44.0 - Atrioventricular block, first degree, R00.1 - Bradycardia, unspecified 14 Day Event Recorder Preventi Today R00.1 - Bradycardia, unspecified Plan Details Follow Up: 3 Years (With Dr. Mariano as needed) 08/15/24 1001 Date Nacho Mariano MD cc: Jack FROST McMorrow; Dr. Sri Stevens MD * Signed HPI HPI History of Present Illness Details: Patient is 58-year-old white male who comes in with his for new patient visit. Patient is referred for bradycardia. Patient reports to me that his heart rate has been down in the 50 bpm range and he was referred by Dr. Stevens's nurse practitioner. The patient also had a history of chest pains and was scheduled for stress test and echo in October 2023. However due to financial constraints he was unable to afford this. The patient's had no recurrence of his chest discomfort and he feels that this is related to the stress that he was under intermittently in his work environment. 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 The patient's blood pressure routinely runs less than 130 in his home environment it was slightly elevated in the office today at 147/89 is a single reading. The patient had a remote history of dizziness and vertigo which has resolved. He had a catheterization done at [facility] in the past which showed normal coronary arteries and a question of some type of diagonal AV fistula. The patient has a history of hypertriglyceridemia. Patient reports he developed heartburn a few months ago stopped his antihypertensives amlodipine and lisinopril and his heartburn resolved. He has now reinstituted those drugs without any recurrence of the heartburn. The patient denies any history of atrial fibrillation. He has no family history of early coronary disease patient does carry history of hypertension on therapy he does have a history of hypertriglyceridemia he does not smoke but he does chew tobacco and he drinks caffeine with coffee and pop. He is not diabetic. The patient denies any syncope or near syncope denies any PND orthopnea denies any significant lower extremity edema. Intake Vital Signs 04/04/24 08:21 08/15/24 09:15 Height 5 ft 11 in 5 ft 11 in Weight: 183 lb BMI 25.5 BP 147/89 H Blood Pressure Location Lt brachial Position Sitting Respiration 18 Pulse 70 Pulse Source Monitor Pulse Oximetry (%) 97 Oxygen Delivery Method room air Intake Visit Reasons: Dizziness ([place]) Physician Assistant Primary Care Required: No Accompanied by: partner Is patient in pain?: No Allergies No Known Allergies Allergy (Verified 08/15/24 09:16) Medications ???Medication ???Instructions ???Recorded ???Confirmed ???Type amlodipine 10 mg tablet 10 mg PO DAILY 11/05/23 07/28/24 History losartan 50 mg tablet 50 mg PO DAILY 11/05/23 07/28/24 History Have you [facility] in the past year?: [facility] History of left heart catheterization First degree AV block Bradycardia Dizziness Hypertension Surgical History History of hernia repair History of cholecystectomy Social History Smoking Status: Never smoker Smokeless tobacco user: chewing tobacco alcohol intake: never substance use type: does not use caffeine: Yes Type: carbonated beverages Number of servings: 6 ROS Const Const: Positive for fatigue; Negative for weakness ENT ENT: Negative for dizziness or balance problems Cardio Chest Pain: Yes Palpitations: No Edema: None Muscle aches with walking: None Resp Respiratory: Negative for SOB with activity, SOB a (more content not included)... Normal [facility] Absolute neutrophil countOrd ered By: Kirit Alvarado on 07-19-2024 Neutrophils (Bld) [#/Vol] 3.8 10*3/uL 2.0-7.7 [facility] Albumin to globulin ratioOrd ered By: Kirit Alvarado on 07-19-2024 Albumin/Globulin [Mass ratio] 1.0 {ratio} 0.9-2.4 [facility] Basophil percentageOrdered B y: Kirit Alvarado on 07-19-2024 Basophils/100 WBC (Bld) 1.2 % High 0-1 [facility] Bilirubin, totalOrdered By: Kirit Alvarado on 07-19-2024 Bilirubin [Mass/Vol] 0.70 mg/dL 0.20-1.00 [facility] Comment on above: For patients on eltr ombopag therapy, use of Dimension [place] TBIL is not recommended. Blood urea nitrogen (BUN)/cr eatinine ratioOrdered By: Kirit Alvarado on 07-19-2024 Urea nitrogen/Creatinine [Mass ratio] 9.8 mg/mg Low 10-20 [facility] C-reactive protein measureme nt by high sensitivity methodOrdered By: Kirit Alvarado on 07-19-2024 C-Reactive Protein Extended Range < 2.90 mg/L 0.0-3.0 [facility] Comment on above: C-Reactive Protein ( CRP) provides useful information for thediagnosis, therapy and monitoring of inflammatory processesand associated diseases. For the evaluation of Relative Riskfor Cardiovascular Disease, a High Sensitivity CRP (HSCRP)should be ordered. CBC W/Diff, Automatedon 07-03 Absolute Lymph 2.01 X10 3/uL Normal 0.83-4.51 [facility] Comment on above: Order Comment: Order Date: 07/19/24 Order Info: 0184-1 - CBCD Order Info: [id number] - SED Performed By: #### L 101.9900, L100.0100, L501.9520, L500.4050, L501.6710 #### [facility] [address] [place], [address] Absolute Neut 3.8 X10 3/uL Normal 2.0-7.7 [facility] Comment on above: Order Comment: Order Date: 07/19/24 Order Info: 0184-1 - CBCD Order Info: [id number] - SED Performed By: #### L 101.9900, L100.0100, L501.9520, L500.4050, L501.6710 #### [facility] [address] [place], [address] Basophils/100 WBC (Bld) 1.2 % High 0-1 [facility] Comment on above: Order Comment: Order Date: 07/19/24 Order Info: 0184- - CBCD Order Info: [id number] - SED Performed By: #### L 101.9900, L100.0100, L501.9520, L500.4050, L501.6710 #### [facility] [address] [place], [address] Eosinophils/100 WBC (Bld) 1.7 % Normal 0-5 [facility] Comment on above: Order Comment: Order Date: 07/19/24 Order Info: 01811-01 - CBCD Order Info: [id number] - SED Performed By: #### L 101.9900, L100.0100, L501.9520, L500.4050, L501.6710 #### [facility] [address] [place], [address] Erythrocyte distribution width (RBC) [Ratio] 13.3 % Normal 11.6-14.6 [facility] Comment on above: Order Comment: Order Date: 07/19/24 Order Info: 01811-01 - CBCD Order Info: [id number] - SED Performed By: #### L 101.9900, L100.0100, L501.9520, L500.4050, L501.6710 #### [facility] [address] [place], [address] Hematocrit (Bld) [Volume fraction] 39.2 % Low 40-54 [facility] Comment on above: Order Comment: Order Date: 07/19/24 Order Info: 01811-01 - CBCD Order Info: [id number] - SED Performed By: #### L 101.9900, L100.0100, L501.9520, L500.4050, L501.6710 #### [facility] [address] [place], [address] Hemoglobin (Bld) [Mass/Vol] 13.7 g/dL Normal 13.0-16.5 [facility] Comment on above: Order Comment: Order Date: 07/19/24 Order Info: 018- - CBCD Order Info: [id number] - SED Performed By: #### L 101.9900, L100.0100, L501.9520, L500.4050, L501.6710 #### [facility] [address] [place], [address] IG% 0.300 Normal 0.0-0.9 [facility] Comment on above: Order Comment: Order Date: 07/19/24 Order Info: 0184 - CBCD Order Info: [id number] - SED Result Comment: IG% - Immature Granulocytes (promyelocytes, myelocytes and metamyelocytes) > 1% indicates that a LEFT SHIFT is Present. Performed By: #### L 101.9900, L100.0100, L501.9520, L500.4050, L501.6710 #### [facility] [address] [place], [address] Lymphocytes/100 WBC (Bld) 30.7 % Normal 19-41 [facility] Comment on above: Order Comment: Order Date: 07/19/24 Order Info: 0184- - CBCD Order Info: [id number] - SED Performed By: #### L 101.9900, L100.0100, L501.9520, L500.4050, L501.6710 #### [facility] [address] [place], [address] MCH (RBC) [Entitic mass] 30.4 pg Normal 27.0-32.0 [facility] Comment on above: Order Comment: Order Date: 07/19/24 Order Info: 0184- - CBCD Order Info: [id number] - SED Performed By: #### L 101.9900, L100.0100, L501.9520, L500.4050, L501.6710 #### [facility] [address] [place], [address] MCHC (RBC) [Mass/Vol] 34.9 g/dL Normal 32-36 [facility] Comment on above: Order Comment: Order Date: 07/19/24 Order Info: 01811-01 - CBCD Order Info: [id number] - SED Performed By: #### L 101.9900, L100.0100, L501.9520, L500.4050, L501.6710 #### [facility] [address] [place], [address] MCV (RBC) [Entitic vol] 87.1 fL Normal 80-94 [facility] Comment on above: Order Comment: Order Date: 07/19/24 Order Info: [id number] - CBCD Order Info: - SED Performed By: #### L 101.9900, L100.0100, L501.9520, L500.4050, L501.6710 #### [facility] [address] [place], [address] Monocytes/100 WBC (Bld) 7.6 % Normal 0-10 [facility] Comment on above: Order Comment: Order Date: 07/19/24 Order Info: 01811-01 - CBCD Order Info: - SED Performed By: #### L 101.9900, L100.0100, L501.9520, L500.4050, L501.6710 #### [facility] [address] [place], [address] Neutrophils/100 WBC (Bld) 58.5 % Normal 47-70 [facility] Comment on above: Order Comment: Order Date: 07/19/24 Order Info: 01811-01 - CBCD Order Info: [id number] - SED Performed By: #### L 101.9900, L100.0100, L501.9520, L500.4050, L501.6710 #### [facility] [address] [place], [address] Nucleated RBC (Bld) [#/Vol] 0 10*3/uL Normal 0-5 [facility] Comment on above: Order Comment: Order Date: 07/19/24 Order Info: 01811-01 - CBCD Order Info: [id number] - SED Performed By: #### L 101.9900, L100.0100, L501.9520, L500.4050, L501.6710 #### [facility] [address] [place], [address] Platelet mean volume (Bld) [Entitic vol] 10.9 fL Normal 6.2-12.0 [facility] Comment on above: Order Comment: Order Date: 07/19/24 Order Info: 01811-01 - CBCD Order Info: [id number] - SED Performed By: #### L 101.9900, L100.0100, L501.9520, L500.4050, L501.6710 #### [facility] [address] [place], [address] Platelets (Bld) [#/Vol] 145 10*3/uL Low 150-450 [facility] Comment on above: Order Comment: Order Date: 07/19/24 Order Info: 018- - CBCD Order Info: [id number] - SED Performed By: #### L 101.9900, L100.0100, L501.9520, L500.4050, L501.6710 #### [facility] [address] [place], [address] RBC (Bld) [#/Vol] 4.50 10*6/uL Low 4.6-6.2 [facility] Comment on above: Order Comment: Order Date: 07/19/24 Order Info: 0184- - CBCD Order Info: [id number] - SED Performed By: #### L 101.9900, L100.0100, L501.9520, L500.4050, L501.6710 #### [facility] [address] [place], [address] RDW SD 41.2 fl Normal 35.1-43.9 [facility] Comment on above: Order Comment: Order Date: 07/19/24 Order Info: 0184-1 - CBCD Order Info: [id number] - SED Performed By: #### L 101.9900, L100.0100, L501.9520, L500.4050, L501.6710 #### [facility] [address] [place], [address] WBC (Bld) [#/Vol] 6.6 10*3/uL Normal 4.4-11.0 [facility] Comment on above: Order Comment: Order Date: 07/19/24 Order Info: 0184-1 - CBCD Order Info: [id number] - SED Performed By: #### L 101.9900, L100.0100, L501.9520, L500.4050, L501.6710 #### [facility] [address] [place], [address] CRPon 07-19-2024 C-REACTIVE PROT < 2.90 Normal 0.0-3.0 [facility] Comment on above: Order Comment: Order Date: 07/19/24Order Info: 0786-1 - CMPOrder Info: [id number] - CRPOrder Info: 3016-3 - TSH Result Comment: C-Re active Protein (CRP) provides useful information for the diagnosis, therapy and monitoring of inflammatory processes and associated diseases. For the evaluation of Relative Risk for Cardiovascular Disease, a High Sensitivity CRP (HSCRP) should be ordered. Performed By: #### L 101.9900, L100.0100, L501.9520, L500.4050, L501.6710 ####[facility] [address] [place], [address] Carbon dioxide measurementOr dered By: Kirit Alvarado on 07-19-2024 CO2 [Moles/Vol] 23.0 mmol/L 21.0-32.0 [facility] Chloride measurementOrdered By: Kirit Alvarado on 07-19-2024 Chloride [Moles/Vol] 110 mmol/L High 98-107 [facility] Comprehensive Metabolic Prof ilon 07-19-2024 Albumin [Mass/Vol] 3.8 g/dL Normal 3.2-5.0 [facility] Comment on above: Order Comment: Order Date: 07/19/24 Order Info: 07 - CMP Order Info: [id number] - CRP Order Info: 3015-10 - TSH Performed By: #### L 101.9900, L100.0100, L501.9520, L500.4050, L501.6710 #### [facility] [address] [place], [address] Albumin/Globulin [Mass ratio] 1.0 {ratio} Normal 0.9-2.4 [facility] Comment on above: Order Comment: Order Date: 07/19/24 Order Info: 785-08 - CMP Order Info: 75712-8 - CRP Order Info: 3015-10 - TSH Performed By: #### L 101.9900, L100.0100, L501.9520, L500.4050, L501.6710 #### [facility] [address] [place], [address] ALK P 135 U/L High 45-117 [facility] Comment on above: Order Comment: Order Date: 07/19/24 Order Info: 0786 - CMP Order Info: [id number] - CRP Order Info: 3015-10 - TSH Performed By: #### L 101.9900, L100.0100, L501.9520, L500.4050, L501.6710 #### [facility] [address] [place], [address] ALT [Catalytic activity/Vol] 35 U/L Normal 16-61 [facility] Comment on above: Order Comment: Order Date: 07/19/24 Order Info: 0786 - CMP Order Info: [id number] - CRP Order Info: 3015-10 - TSH Performed By: #### L 101.9900, L100.0100, L501.9520, L500.4050, L501.6710 #### [facility] [address] [place], [address] AST [Catalytic activity/Vol] 28 U/L Normal 15-37 [facility] Comment on above: Order Comment: Order Date: 07/19/24 Order Info: 785-1 - CMP Order Info: [id number] - CRP Order Info: 3 - TSH Performed By: #### L 101.9900, L100.0100, L501.9520, L500.4050, L501.6710 #### [facility] [address] [place], [address] Bilirubin [Mass/Vol] 0.70 mg/dL Normal 0.20-1.00 [facility] Comment on above: Order Comment: Order Date: 07/19/24 Order Info: 785-08 - CMP Order Info: - CRP Order Info: 3 - TSH Result Comment: For patients on eltrombopag therapy, use of Dimension [place] TBIL is not recommended. Performed By: #### L 101.9900, L100.0100, L501.9520, L500.4050, L501.6710 #### [facility] [address] [place], [address] BUN/CRE 9.8 RATIO Low 10-20 [facility] Comment on above: Order Comment: Order Date: 07/19/24 Order Info: 785-08 - CMP Order Info: - CRP Order Info: 3 - TSH Performed By: #### L 101.9900, L100.0100, L501.9520, L500.4050, L501.6710 #### [facility] [address] [place], [address] CA,Total 8.6 mg/dL Normal 8.5-10.1 [facility] Comment on above: Order Comment: Order Date: 07/19/24 Order Info: 785-1 - CMP Order Info: - CRP Order Info: 3 - TSH Performed By: #### L 101.9900, L100.0100, L501.9520, L500.4050, L501.6710 #### [facility] [address] [place], [address] Chloride [Moles/Vol] 110 mmol/L High 98-107 [facility] Comment on above: Order Comment: Order Date: 07/19/24 Order Info: 0786-1 - CMP Order Info: [id number] - CRP Order Info: 3 - TSH Performed By: #### L 101.9900, L100.0100, L501.9520, L500.4050, L501.6710 #### [facility] [address] [place], [address] CO2 [Moles/Vol] 23.0 mmol/L Normal 21.0-32.0 [facility] Comment on above: Order Comment: Order Date: 07/19/24 Order Info: 0786-1 - CMP Order Info: [id number] - CRP Order Info: 3 - TSH Performed By: #### L 101.9900, L100.0100, L501.9520, L500.4050, L501.6710 #### [facility] [address] [place], [address] Creatinine [Mass/Vol] 1.12 mg/dL Normal 0.70-1.30 [facility] Comment on above: Order Comment: Order Date: 07/19/24 Order Info: 0786-1 - CMP Order Info: [id number] - CRP Order Info: 3013 - TSH Result Comment: The validity of the calculated GFR GFRAA in patients over 70 years has not been determined. Clinical correlation is essential. Performed By: #### L 101.9900, L100.0100, L501.9520, L500.4050, L501.6710 #### [facility] [address] [place], [address] EST GFR - AA 86 mL/min Normal >60 [facility] Comment on above: Order Comment: Order Date: 07/19/24 Order Info: 785-1 - CMP Order Info: - CRP Order Info: 3015-10 - TSH Result Comment: Afri can [place] GFR Calc Performed By: #### L 101.9900, L100.0100, L501.9520, L500.4050, L501.6710 #### [facility] [address] [place], [address] GAP 6 Normal 5-15 [facility] Comment on above: Order Comment: Order Date: 07/19/24 Order Info: 785-08 - CMP Order Info: - CRP Order Info: 3015-10 - TSH Performed By: #### L 101.9900, L100.0100, L501.9520, L500.4050, L501.6710 #### [facility] [address] [place], [address] GFR/1.73 sq M.predicted among non-blacks MDRD (S/P/Bld) [Vol rate/Area] 71 mL/min/{1.73_m2} Normal >60 [facility] Comment on above: Order Comment: Order Date: 07/19/24 Order Info: 785-08 - CMP Order Info: [id number] - CRP Order Info: 3 - TSH Result Comment: Non- GFR Calc Performed By: #### L 101.9900, L100.0100, L501.9520, L500.4050, L501.6710 #### [facility] [address] [place], [address] Globulin (S) [Mass/Vol] 3.8 g/dL Normal 2.2-4.2 [facility] Comment on above: Order Comment: Order Date: 07/19/24 Order Info: 071 - CMP Order Info: [id number] - CRP Order Info: 3015-10 - TSH Performed By: #### L 101.9900, L100.0100, L501.9520, L500.4050, L501.6710 #### [facility] [address] [place], [address] Glucose [Mass/Vol] 107 mg/dL High 74-106 [facility] Comment on above: Order Comment: Order Date: 07/19/24 Order Info: 07-1 - CMP Order Info: [id number] - CRP Order Info: 3015-3 - TSH Result Comment: Fast ing Glucose result from 100 to 125 mg/dL suggests IMPAIRED HOMEOSTASIS per A.D.A. criteria. Performed By: #### L 101.9900, L100.0100, L501.9520, L500.4050, L501.6710 #### [facility] [address] [place], [address] Potassium [Moles/Vol] 3.0 mmol/L Low 3.5-5.1 [facility] Comment on above: Order Comment: Order Date: 07/19/24 Order Info: 785- - CMP Order Info: [id number] - CRP Order Info: 3015-3 - TSH Performed By: #### L 101.9900, L100.0100, L501.9520, L500.4050, L501.6710 #### [facility] [address] [place], [address] Sodium [Moles/Vol] 140 mmol/L Normal 136-145 [facility] Comment on above: Order Comment: Order Date: 07/19/24 Order Info: 07- - CMP Order Info: [id number] - CRP Order Info: 3015-3 - TSH Performed By: #### L 101.9900, L100.0100, L501.9520, L500.4050, L501.6710 #### [facility] [address] [place], [address] T PROT 7.6 g/dL Normal 6.4-8.2 [facility] Comment on above: Order Comment: Order Date: 07/19/24 Order Info: 0786-1 - CMP Order Info: [id number] - CRP Order Info: 3016-3 - TSH Performed By: #### L 101.9900, L100.0100, L501.9520, L500.4050, L501.6710 #### [facility] [address] [place], [place], [address] Urea nitrogen [Mass/Vol] 11 mg/dL Normal 7-18 [facility] Comment on above: Order Comment: Order Date: 07/19/24 Order Info: 0786-1 - CMP Order Info: [id number] - CRP Order Info: 3016-3 - TSH Performed By: #### L 101.9900, L100.0100, L501.9520, L500.4050, L501.6710 #### [facility] [address] [place], [address] Eosinophil percentageOrdered By: Kirit Alvarado on 07-19-2024 Eosinophils/100 WBC (Bld) 1.7 % 0-5 [facility] Erythrocyte Sed Rateon 07-19 SED RATE 4 mm/hr Normal 0-20 [facility] Comment on above: Order Comment: Order Date: 07/19/24 Order Info: 0184-1 - CBCD Order Info: [id number] - SED Performed By: #### L 101.9900, L100.0100, L501.9520, L500.4050, L501.6710 #### [facility] [address] [place], [place], [address] Erythrocyte distribution wid th ratioOrdered By: Kirit Alvarado on 07-19-2024 Erythrocyte distribution width (RBC) [Ratio] 13.3 % 11.6-14.6 [facility] Erythrocyte distribution wid th standard deviationOrdered By: Kirit Alvarado on 07-19-2024 Erythrocyte distribution width (RBC) [Entitic vol] 41.2 fL 35.1-43.9 [facility] Erythrocyte sedimentation ra teOrdered By: Kirit Alvarado on 07-19-2024 ESR (Bld) [Velocity] 4 mm/h 0-20 [facility] Estimated glomerular filtrat ion rate (GFR) AmericanOrdered By: Kirit Alvarado on 07-19-2024 Estimated GFR (MDRD) Amer 86 mL/min >60 [facility] Comment on above: GFR Calc Glomerular filtration rate ( GFR) estimationOrdered By: Kirit Alvarado on 07-19-2024 Estimated GFR (MDRD) Non-Af Amer 71 mL/min >60 [facility] Comment on above: Non- GFR Calc Glucose measurementOrdered B y: Kirit Alvarado on 07-19-2024 Glucose [Mass/Vol] 107 mg/dL High 74-106 [facility] Comment on above: Fasting Glucose resu lt from 100 to 125 mg/dL suggests IMPAIRED HOMEOSTASIS per A.D.A. criteria. Hematocrit Auto (Bld) [Volum e fraction]Ordered By: Kirit Alvarado on 07-19-2024 Hematocrit (Bld) [Volume fraction] 39.2 % Low 40-54 [facility] Hemoglobin measurementOrdere d By: Kirit Alvarado on 07-19-2024 Hemoglobin (Bld) [Mass/Vol] 13.7 g/dL 13.0-16.5 [facility] Immature granulocytes/100 WB C Auto (Bld)Ordered By: Kirit Alvarado on 07-19-2024 Immature granulocytes/100 WBC (Bld) 0.300 % 0.0-0.9 [facility] Comment on above: IG% - Immature Granu locytes (promyelocytes, myelocytes and metamyelocytes) > 1% indicates that a LEFT SHIFT is Present. Laboratory - Chemistry and C hemistry - challengeOrdered By: Kirit Alvarado on 07-19-2024 AST [Catalytic activity/Vol] 28 U/L 15-37 [facility] Lymphocytes Auto (Unsp spec) [#/Vol]Ordered By: Kirit Alvarado on 07-19-2024 Lymphocytes (Bld) [#/Vol] 2.01 10*3/uL 0.83-4.51 [facility] Lymphocytes/100 WBC Auto (Un sp spec)Ordered By: Kirit Alvarado on 07-19-2024 Lymphocytes/100 WBC (Bld) 30.7 % 19-41 [facility] MCV (mean corpuscular volume ) determinationOrdered By: Kirit Alvarado on 07-19-2024 MCV (RBC) [Entitic vol] 87.1 fL 80-94 [facility] Mean corpuscular hemoglobin (MCH) determinationOrdered By: Kirit Alvarado on 07-19-2024 MCH (RBC) [Entitic mass] 30.4 pg 27.0-32.0 [facility] Mean corpuscular hemoglobin concentration (MCHC) determinationOrdered By: Kirit Alvarado on 07-19-2024 MCHC (RBC) [Mass/Vol] 34.9 g/dL 32-36 [facility] Mean platelet volume determi nationOrdered By: Kirit Alvarado on 07-19-2024 Platelet mean volume (Bld) [Entitic vol] 10.9 fL 6.2-12.0 [facility] Monocyte percentageOrdered B y: Kirit Alvarado on 07-19-2024 Monocytes/100 WBC (Bld) 7.6 % 0-10 [facility] Neutrophil percentageOrdered By: Kirit Alvarado on 07-19-2024 Neutrophils/100 WBC (Bld) 58.5 % 47-70 [facility] Nucleated red blood cell per centageOrdered By: Kirit Alvarado on 07-19-2024 Nucleated RBC/100 WBC (Bld) [Ratio] 0 % 0-5 [facility] Platelet countOrdered By: Julianna Alvarado on 07-19-2024 Platelets (Bld) [#/Vol] 145 10*3/uL Low 150-450 [facility] Potassium measurementOrdered By: Kirit Alvarado on 07-19-2024 Potassium [Moles/Vol] 3.0 mmol/L Low 3.5-5.1 [facility] RBC Auto (Bld) [#/Vol]Ordere d By: Kriit Alvarado on 07-19-2024 RBC (Bld) [#/Vol] 4.50 10*6/uL Low 4.6-6.2 [facility] Serum anion gap measurementO rdered By: Kirit Alvarado on 07-19-2024 Anion gap [Moles/Vol] 6 mmol/L 5-15 [facility] Serum globulin measurementOr dered By: Kirit Alvarado on 07-19-2024 Globulin (S) [Mass/Vol] 3.8 g/dL 2.2-4.2 [facility] Serum or plasma alanine august otransferase (ALT) measurementOrdered By: Kirit Alvarado on 07-19-2024 ALT [Catalytic activity/Vol] 35 U/L 16-61 [facility] Serum or plasma albumin vita urement (mass/volume)Ordered By: Kirit Alvarado on 07-19-2024 Albumin [Mass/Vol] 3.8 g/dL 3.2-5.0 [facility] Serum or plasma alkaline tomasz sphatase measurementOrdered By: Kirit Alvarado on 07-19-2024 ALP [Catalytic activity/Vol] 135 U/L High 45-117 [facility] Serum or plasma calcium vita urement (mass/volume)Ordered By: Kirit Alvarado on 07-19-2024 Calcium [Mass/Vol] 8.6 mg/dL 8.5-10.1 [facility] Serum or plasma creatinine m easurement (mass/volume)Ordered By: Kirit Alvarado on 07-19-2024 Creatinine [Mass/Vol] 1.12 mg/dL 0.70-1.30 [facility] Comment on above: The validity of the calculated GFR & GFRAA in patients over 70 years has not been determined. Clinical correlation is essential. Serum or plasma urea nitroge n measurement (mass/volume)Ordered By: Kirit Alvarado on 07-19-2024 Urea nitrogen [Mass/Vol] 11 mg/dL 7-18 [facility] Sodium levelOrdered By: Lubna Alvarado on 07-19-2024 Sodium [Moles/Vol] 140 mmol/L 136-145 [facility] TSH QnOrdered By: Jesse Alvarado on 07-19-2024 Thyroid Stimulating Hormone (TSH) 2.180 uIU/mL 0.358-3.740 [facility] Thyroid Stim Hormone (TSH)on 07-19-2024 TSH 2.180 uIU/mL Normal 0.358-3.740 [facility] Comment on above: Order Comment: Order Date: 07/19/24Order Info: [id number] - CMPOrder Info: [id number] - CRPOrder Info: [id number] - TSH Performed By: #### L 101.9900, L100.0100, L501.9520, L500.4050, L501.6710 ####[facility] [address] [place], [place], [id number] Total proteinOrdered By: Ness Alvarado on 07-19-2024 Protein [Mass/Vol] 7.6 g/dL 6.4-8.2 [facility] White blood cell (WBC) count Ordered By: Kirit Alvarado on 07-19-2024 WBC (Bld) [#/Vol] 6.6 10*3/uL 4.4-11.0 [facility] Absolute lymphocyte countOrd ered By: Ramona Graves on 11-05-2023 Lymphocytes Auto (Unsp spec) [#/Vol] 1.51 10*3/uL 0.83-4.51 [facility] Automated lymphocyte count a s percentage of total leukocytesOrdered By: Ramona Graves on 11-05-2023 Lymphocytes/100 WBC Auto (Unsp spec) 28.6 % 19-41 [facility] Basophil percentageOrdered B y: Ramona Graves on 11-05-2023 Basophils/100 WBC (Bld) 0.8 % 0-1 [facility] Chloride [Moles/Vol] 110 mmol/L 98-107 [facility] Eosinophils/100 WBC (Bld) 0.4 % 0-5 [facility] Glucose [Mass/Vol] 95 mg/dL 74-106 [facility] Hemoglobin (Bld) [Mass/Vol] 14.7 g/dL 13.0-16.5 [facility] Monocytes/100 WBC (Bld) 8.1 % 0-10 [facility] Neutrophils (Bld) [#/Vol] 3.3 10*3/uL 2.0-7.7 [facility] Neutrophils/100 WBC (Bld) 61.7 % 47-70 [facility] Potassium [Moles/Vol] 3.7 mmol/L 3.5-5.1 [facility] Sodium [Moles/Vol] 140 mmol/L 136-145 [facility] WBC (Bld) [#/Vol] 5.3 10*3/uL 4.4-11.0 [facility] Determination of erythrocyte mean corpuscular volume (MCV)Ordered By: Ramona Graves on 11-05-2023 MCV (RBC) [Entitic vol] 90.6 fL 80-94 [facility] Erythrocyte distribution wid th ratioOrdered By: Ramona Graves on 11-05-2023 Erythrocyte distribution width (RBC) [Ratio] 12.8 % 11.6-14.6 [facility] Erythrocyte distribution wid th standard deviationOrdered By: Ramona Graves on 11-05-2023 Erythrocyte distribution width (RBC) [Entitic vol] 41.8 fL 35.1-43.9 [facility] Hematocrit Auto (Bld) [Volum e fraction]Ordered By: Ramona Graves on 11-05-2023 Hematocrit (Bld) [Volume fraction] 44.1 % 40-54 [facility] Immature granulocytes/100 WB C Auto (Bld)Ordered By: Ramona Graves on 11-05-2023 Immature granulocytes/100 WBC (Bld) 0.400 % 0.0-0.9 [facility] Comment on above: IG% - Immature Granu locytes (promyelocytes, myelocytes and metamyelocytes) > 1% indicates that a LEFT SHIFT is Present. Laboratory - Chemistry and C hemistry - challengeOrdered By: Ramona Graves on 11-05-2023 CO2 [Moles/Vol] 24.0 mmol/L 21.0-32.0 [facility] Natriuretic peptide B (Bld) [Mass/Vol] 25.1 pg/mL 0-100 [facility] Urea nitrogen/Creatinine [Mass ratio] 13.9 mg/mg 10-20 [facility] Laboratory - Hematology and Cell countsOrdered By: Ramona Graves on 11-05-2023 MCH (RBC) [Entitic mass] 30.2 pg 27.0-32.0 [facility] MCHC (RBC) [Mass/Vol] 33.3 g/dL 32-36 [facility] Nucleated RBC/100 WBC (Bld) [Ratio] 0 % 0-5 [facility] Platelet mean volume (Bld) [Entitic vol] 10.7 fL 6.2-12.0 [facility] Platelets (Bld) [#/Vol] 134 10*3/uL 150-450 [facility] No Panel InformationOrdered By: Ramona Graves on 11-05-2023 Troponin I High Sensitivity 5 pg/mL 3.0-78.0 [facility] Comment on above: Please Note: New Krystle t Units and Gender Specific Reference Ranges. For more information see Policy Stat Procedure [place] High Sensitivity Troponin (TNIH) and attachments. D-Dimer Quantitative (PE/DVT) 0.29 FEU/ug/m 0.27-0.49 [facility] Comment on above: NORMAL D-Dimer level (<0.50) indicates no DVT or PE. Estimated Creatinine Clearance Calc 78.44 ml/min [facility] Estimated GFR (MDRD) Amer 90 mL/min >60 [facility] Comment on above: GFR Calc Estimated GFR (MDRD) Non-Af Amer 74 mL/min >60 [facility] Comment on above: Non- GFR Calc RBC Auto (Bld) [#/Vol]Ordere d By: Ramona Graves on 11-05-2023 RBC (Bld) [#/Vol] 4.87 10*6/uL 4.6-6.2 [facility] Serum or plasma calcium vita urement (mass/volume)Ordered By: Ramona Graves on 11-05-2023 Calcium [Mass/Vol] 9.1 mg/dL 8.5-10.1 [facility] Serum or plasma creatinine m easurement (mass/volume)Ordered By: Ramona Graves on 11-05-2023 Creatinine [Mass/Vol] 1.08 mg/dL 0.70-1.30 [facility] Comment on above: The validity of the calculated GFR & GFRAA in patients over 70 years has not been determined. Clinical correlation is essential. Serum or plasma urea nitroge n measurement (mass/volume)Ordered By: Ramona Graves on 11-05-2023 Urea nitrogen [Mass/Vol] 15 mg/dL 7-18 [facility] Thin prep Papanicolaou smear with manual screeningOrdered By: Ramona Graves on 11-05-2023 Thin prep Papanicolaou smear with manual screening 6 5-15 [facility] No Panel InformationOrdered By: Sri Stevens on 10-13-2023 Troponin I High Sensitivity 8 pg/mL 3.0-78.0 [facility] Comment on above: Please Note: New Krystle t Units and Gender Specific Reference Ranges. For more information see Policy Stat Procedure [place] High Sensitivity Troponin (TNIH) and attachments. CBC + DIFFon 10-08-2023 Baso # 0.02 x10EE3/UL Normal 0.00 - 0.10 [facility] Comment on above: Performed By: #### 2 [id number] #### [facility],[address] [place] [address] Basophils/100 WBC (Bld) 0.4 % Normal 0.0 - 2.0 [facility] Comment on above: Performed By: #### 2 43540 #### [facility],[address] [place] [address] CBC + DIFF Normal [facility] Comment on above: Result Comment: CBC- COMPLETE BLOOD COUNT Performed By: #### 2 90246 #### [facility],[address] [place] [address] EO # 0.07 x10EE3/UL Normal 0.00 - 0.50 [facility] Comment on above: Performed By: #### 2 27400 #### [facility],[address] [place], [place] [id number] Eosinophils/100 WBC (Bld) 1.5 % Normal 0.0 - 7.0 [facility] Comment on above: Performed By: #### 2 41495 #### [facility],[address] [place] [address] Erythrocyte distribution width (RBC) [Ratio] 13.8 % Normal 12.0 - 15.6 [facility] Comment on above: Performed By: #### 2 63404 #### [facility],[address] [place] [address] Hematocrit (Bld) [Volume fraction] 41.9 % Normal 40.0 - 52.0 [facility] Comment on above: Performed By: #### 2 40127 #### [facility],[address] [place], [place] [phone] Hemoglobin (Bld) [Mass/Vol] 14.5 g/dL Normal 13.0 - 17.5 [facility] Comment on above: Performed By: #### 2 09816 #### [facility],[address] [place] [address] Lymph # 1.60 x10EE3/UL Normal 0.80 - 2.80 [facility] Comment on above: Performed By: #### 2 91046 #### [facility],[address] [place] [address] Lymphocytes/100 WBC (Bld) 33.4 % Normal 20.0 - 45.0 [facility] Comment on above: Performed By: #### 2 31663 #### [facility],[address] [place], [place] [id number] MANUAL DIFF N/A Normal [facility] Comment on above: Performed By: #### 2 26902 #### [facility],[address] [place], [place] [phone] MCH (RBC) [Entitic mass] 31 pg Normal 27 - 33 [facility] Comment on above: Performed By: #### 2 11127 #### [facility],[address] [place], [place] [id number] MCHC 35 X10 3 Normal 32 - 36 [facility] Comment on above: Performed By: #### 2 80800 #### [facility],[address] [place], [place] [phone] MCV (RBC) [Entitic vol] 89 fL Normal 81 - [address] [facility] Comment on above: Performed By: #### 2 57520 #### [facility],[address] [place] [address] Bowman # 0.42 x10EE3/UL Normal 0.20 - 1.00 [facility] Comment on above: Performed By: #### 2 87650 #### [facility],[address] [place] [address]84 MONOS % 8.8 % Normal 0.0 - 10.0 [facility] Comment on above: Performed By: #### 2 17850 #### [facility],[address] [place] [address] Morphology Arturo (Bld) [Interp] N/A Normal [facility] Comment on above: Performed By: #### 2 16774 #### [facility],[address] [place] [address] Neut # 2.67 x10EE3/UL Normal 1.50 - 7.10 [facility] Comment on above: Performed By: #### 2 91382 #### [facility],[address] [place] [address] Neutrophils/100 WBC (Bld) 55.9 % Normal 46.0 - 76.0 [facility] Comment on above: Performed By: #### 2 25601 #### [facility],[address] [place], [place] [phone] PLATELET 134 x10EE3/UL Low 150 - 450 [facility] Comment on above: Performed By: #### 2 73738 #### [facility],[address] [place] [address] Platelet mean volume (Bld) [Entitic vol] 8.4 fL Normal 6.4 - 10.5 [facility] Comment on above: Result Comment: AUTO MATED DIFFERENTIAL Performed By: #### 2 25246 #### [facility],[address] [place] [address]63 RBC 4.73 x 10EE6/UL Normal 4.50 - 6.00 [facility] Comment on above: Performed By: #### 2 21360 #### [facility],[address] [place] [address] 15275 WBC 4.8 x 10EE3/UL Normal 4.5 - 10.8 [facility] Comment on above: Performed By: #### 2 49345 #### [facility],[address] [place] [address] CHEST 1 VIEWon 10-08-2023 CHEST 1 VIEW [place] [address] Patient: EUNICE BRIONES Phone#: : 1965 Age: 57 Gender: M Pt. Type: ER Account: [id number] Location: [facility] Ordering: DR. DURAN LEÓN Exam Date: 10/08/2023/8:35 Family Phys: NATALIE SARAH Charge Code: [id number] Physician: Jack Order #: [id number] Dose#: PROCEDURE: X-RAY CHEST 1 VIEW COMPARISON: [place], XR, CHEST 2 VIEWS, 08/06/2022, 9:18. INDICATIONS: Chest pain. FINDINGS: Patient is mildly rotated to the left, somewhat limiting the evaluation. LUNGS: Normal. No significant pulmonary parenchymal abnormalities. VASCULATURE: Normal. Unremarkable pulmonary vasculature. CARDIAC: Normal. No cardiac silhouette abnormality or cardiomegaly. MEDIASTINUM: The aorta is ectatic PLEURA: Normal. No effusion or pleural thickening. BONES: Normal. No fracture or visible bony lesion. OTHER: Monitoring leads project across the thorax. CONCLUSION: No acute disease. No significant change has occurred. Dictated by: Phuong Lawrence MD on 10/08/2023 at 8:47 Approved by: Phuong Lawrence MD on 10/08/2023 at 8:48 Normal [facility] CMP with eGFRon 10-08-2023 AGE 57 years Normal [facility] Comment on above: Performed By: #### 2 28600 #### [facility],[address] [place] [address] Albumin [Mass/Vol] 3.8 g/dL Normal 3.4 - 5.0 [facility] Comment on above: Performed By: #### 2 72879 #### [facility],[address] [place] [address] Albumin/Globulin [Mass ratio] 1.0 {ratio} Normal 0.9 - 1.6 [facility] Comment on above: Performed By: #### 2 98785 #### [facility],[address] [place] [address]304 ALK PHOS 114 U/L Normal 46 - 116 [facility] Comment on above: Performed By: #### 2 75699 #### [facility],[address] [place] [address]14 ALT [Catalytic activity/Vol] 35 U/L Normal 16 - 63 [facility] Comment on above: Performed By: #### 2 72619 #### [facility],[address] [place] [address]12 Anion gap [Moles/Vol] 13 mmol/L Normal 10 - 20 [facility] Comment on above: Performed By: #### 2 15287 #### [facility],[address] [place] [address] 46110 AST [Catalytic activity/Vol] 29 U/L Normal 15 - 37 [facility] Comment on above: Performed By: #### 2 99206 #### [facility],[address] [place] [address] 94669 B/C RATIO 14 ratio Normal 0 - 30 [facility] Comment on above: Performed By: #### 2 34665 #### [facility],[address] [place] [address]43 Bilirubin [Mass/Vol] 0.8 mg/dL Normal 0.2 - 1.0 [facility] Comment on above: Performed By: #### 2 96625 #### [facility],[address] [place] [address]57 Calcium [Mass/Vol] 8.8 mg/dL Normal 8.5 - 10.1 [facility] Comment on above: Performed By: #### 2 32805 #### [facility],[address] [place] [address] Chloride [Moles/Vol] 106 mmol/L Normal 98 - 107 [facility] Comment on above: Performed By: #### 2 69466 #### [facility],[address] [place] [address] CMP with eGFR Normal [facility] Comment on above: Result Comment: COMP REHENSIVE METABOLIC PANEL Performed By: #### 2 17444 #### [place] [address] CO2 [Moles/Vol] 26.3 mmol/L Normal 21.0 - 32.0 [facility] Comment on above: Performed By: #### 2 92163 #### [place] [address] Creatinine [Mass/Vol] 1.13 mg/dL Normal 0.70 - 1.30 [facility] Comment on above: Performed By: #### 2 52137 #### [place] [address] GFR/1.73 sq M.predicted among non-blacks MDRD (S/P/Bld) [Vol rate/Area] mL/min/{1.73_m2} Normal 60 - 999 [facility] Comment on above: Performed By: #### 2 94881 #### [place] [address] Result Comment: ACCO RDING TO THE NATIONAL KIDNEY DISEASE EDUCATION PROGRAM(NKDE), A NORMAL eGFR IS A VALUE GREATER THAN OR EQUAL TO 60 ML/MIN/1.73 SQ METERS. CHRONIC KIDNEY DISEASE: <60mL/MIN/1.73 SQ METERS KIDNEY FAILURE: <15mL/MIN/1.73 SQ METERS THIS TEST SHOULD ONLY BE USED FOR PATIENTS 18 YEARS OF AGE AND OLDER. Globulin (S) [Mass/Vol] 4.0 g/dL High 1.5 - 3.8 [facility] Comment on above: Performed By: #### 2 77458 #### [facility],[address] [place] [address] Glucose [Mass/Vol] 98 mg/dL Normal 74 - 106 [facility] Comment on above: Performed By: #### 2 43848 #### [facility],[address] [place] [address]181 Potassium [Moles/Vol] 3.5 mmol/L Normal 3.5 - 5.1 [facility] Comment on above: Performed By: #### 2 12519 #### [facility],[address] [place] [address]53 Protein [Mass/Vol] 7.8 g/dL Normal 6.4 - 8.2 [facility] Comment on above: Performed By: #### 2 33845 #### [facility],[address] [place] [address]1929 Sodium [Moles/Vol] 142 mmol/L Normal 136 - 145 [facility] Comment on above: Performed By: #### 2 87172 #### [facility],[address] [place] [address]1636 Urea nitrogen [Mass/Vol] 16 mg/dL Normal 7 - 18 [facility] Comment on above: Performed By: #### 2 84208 #### [facility],[address] [place] [address]33 TROPONIN I, HIGH SENSITIVITY on 10-08-2023 HS TROPONIN 7.5 pg/mL Normal 0.0 - 76.2 [facility] Comment on above: Performed By: #### 2 78195 #### [facility],[address] [place] [address]441 HS TROPONIN 6.9 pg/mL Normal 0.0 - 76.2 [facility] Comment on above: Performed By: #### 2 19112 #### [facility],[address] [facility] [address] Absolute lymphocyte countOrd ered By: Sri Stevens on 07-24-2023 Lymphocytes Auto (Unsp spec) [#/Vol] 1.90 10*3/uL 0.83-4.51 [facility] Basophil percentageOrdered B y: Sri Stevens on 07-24-2023 Basophils/100 WBC (Bld) 1.0 % 0-1 [facility] Bilirubin [Mass/Vol] 0.50 mg/dL 0.20-1.00 [facility] Comment on above: Slight Lipemia, Resu lt may be falsely increased. For patients on eltrombopag therapy, use of Dimension [place] TBIL is not recommended. Chloride [Moles/Vol] 110 mmol/L 98-107 [facility] Cholesterol [Mass/Vol] 178 mg/dL <200 [facility] Comment on above: Slight Lipemia, Resu lt may be falsely increased. <200 mg/dL Desirable 200-240 mg/dL Borderline >240 mg/dL High Risk Eosinophils/100 WBC (Bld) 1.9 % 0-5 [facility] Glucose [Mass/Vol] 91 mg/dL 74-106 [facility] Comment on above: Slight Lipemia, Resu lt may be falsely increased. Neutrophils (Bld) [#/Vol] 3.2 10*3/uL 2.0-7.7 [facility] Neutrophils/100 WBC (Bld) 55.2 % 47-70 [facility] Potassium [Moles/Vol] 3.5 mmol/L 3.5-5.1 [facility] Comment on above: Slight Hemolysis, Re sult may be falsely increased.-Slight Lipemia, Result may be falsely increased. Protein [Mass/Vol] 7.6 g/dL 6.4-8.2 [facility] Comment on above: Slight Lipemia, Resu lt may be falsely increased. Sodium [Moles/Vol] 139 mmol/L 136-145 [facility] Triglyceride [Mass/Vol] 466 mg/dL <199 [facility] Comment on above: The drugs N-Acetylcy steine and Metamizole may falsely depress this assay. Slight Lipemia, Result may be falsely increased. TRIGLYCERIDE IS GREATER THAN 400 mg/dL. LDL RESULT IS INVALID AND WILL NOT BE REPORTED.Serum Triglycerides Reference Interval Normal <150 mg/dL Borderline high 150 - 199 mg/dL High 200 - 499 mg/dL Very High > or = 500 mg/dL WBC (Bld) [#/Vol] 5.8 10*3/uL 4.4-11.0 [facility] Blood erythrocytes count (nu mber/volume)Ordered By: Sri Stevens on 07-24-2023 RBC (Bld) [#/Vol] 4.69 10*6/uL 4.6-6.2 [facility] Blood hemoglobin measurement (mass/volume)Ordered By: Sri Stevens on 07-24-2023 Hemoglobin (Bld) [Mass/Vol] 14.9 g/dL 13.0-16.5 [facility] Blood lymphocytes/100 leukoc ytesOrdered By: Sri Stevens on 07-24-2023 Lymphocytes/100 WBC (Bld) 32.9 % 19-41 [facility] Blood monocytes/100 leukocyt esOrdered By: [facility]daily Stevens on 07-24-2023 Monocytes/100 WBC (Bld) 8.7 % 0-10 [facility] Blood platelet mean volumeOr dered By: Sri Stevens on 07-24-2023 Platelet mean volume (Bld) [Entitic vol] 10.5 fL 6.2-12.0 [facility] Determination of erythrocyte mean corpuscular volume (MCV)Ordered By: Sri Stevens on 07-24-2023 MCV (RBC) [Entitic vol] 92.5 fL 80-94 [facility] Hematocrit Auto (Bld) [Volum e fraction]Ordered By: Sri Hilda on 07-24-2023 Hematocrit (Bld) [Volume fraction] 43.4 % 40-54 [facility] Laboratory - Chemistry and C hemistry - challengeOrdered By: Sri Stevens on 07-24-2023 ALP [Catalytic activity/Vol] 127 U/L 45-117 [facility] ALT [Catalytic activity/Vol] 36 U/L 16-61 [facility] Comment on above: Slight Lipemia, Resu lt may be falsely increased. CO2 [Moles/Vol] 24.0 mmol/L 21.0-32.0 [facility] Comment on above: Slight Lipemia, Resu lt may be falsely increased. Globulin (S) [Mass/Vol] 3.9 g/dL 2.2-4.2 [facility] Urea nitrogen/Creatinine [Mass ratio] 16.7 mg/mg 10-20 [facility] Laboratory - Hematology and Cell countsOrdered By: Sri Stevens on 07-24-2023 Erythrocyte distribution width (RBC) [Entitic vol] 45.6 fL 35.1-43.9 [facility] Erythrocyte distribution width (RBC) [Ratio] 13.5 % 11.6-14.6 [facility] Immature granulocytes/100 WBC (Bld) 0.300 % 0.0-0.9 [facility] Comment on above: IG% - Immature Granu locytes (promyelocytes, myelocytes and metamyelocytes) > 1% indicates that a LEFT SHIFT is Present. MCH (RBC) [Entitic mass] 31.8 pg 27.0-32.0 [facility] Nucleated RBC/100 WBC (Bld) [Ratio] 0 % 0-5 [facility] MCHC Auto (RBC) [Mass/Vol]Or dered By: Sri Stevens on 07-24-2023 MCHC (RBC) [Mass/Vol] 34.3 g/dL 32-36 [facility] No Panel InformationOrdered By: Sri Stevens on 07-24-2023 Estimated GFR (MDRD) Amer 103 mL/min >60 [facility] Comment on above: GFR Calc Estimated GFR (MDRD) Non-Af Amer 85 mL/min >60 [facility] Comment on above: Non- GFR Calc Thyroid Stimulating Hormone (TSH) 0.66 uIU/mL 0.358-3.74 [facility] Vitamin D 25-Hydroxy 9.6 ng/mL [facility] Comment on above: Vitamin D 25(OH) Sta tus Range Deficiency <20 ng/mL (50nmol/L) Insufficiency 20 - 30 ng/mL (50 - 75 nmol/L) Sufficiency 30 - 100 ng/mL (75 - 250 nmol/L) Toxicity >100 ng/mL (>250 nmol/L) Platelets bldOrdered By: Ailyn Mcintyreke on 07-24-2023 Platelets (Bld) [#/Vol] 146 10*3/uL 150-450 [facility] Serum or plasma albumin vita urement (mass/volume)Ordered By: Sri Stevens on 07-24-2023 Albumin [Mass/Vol] 3.7 g/dL 3.2-5.0 [facility] Serum or plasma albumin/glob ulin mass ratioOrdered By: Sri Stevens on 07-24-2023 Albumin/Globulin [Mass ratio] 0.9 {ratio} 0.9-2.4 [facility] Serum or plasma calcium vita urement (mass/volume)Ordered By: Sri Stevens on 07-24-2023 Calcium [Mass/Vol] 8.4 mg/dL 8.5-10.1 [facility] Comment on above: Slight Lipemia, Resu lt may be falsely increased. Serum or plasma cholesterol in HDL measurement (mass/volume)Ordered By: Sri Stevens on 07-24-2023 Cholesterol in HDL [Mass/Vol] 30 mg/dL >40 [facility] Comment on above: The drugs N-Acetylcy steine and Metamizole may falsely depress this assay. Reference Range HDL <40 mg/dL Low HDL Cholesterol HDL >or= 60 mg/dL High HDL Cholesterol Serum or plasma cholesterol in VLDL measurement (mass/volume)Ordered By: Sri Stevens on 07-24-2023 Cholesterol in VLDL [Mass/Vol] TNP [facility] Comment on above: Test not performed Serum or plasma creatinine m easurement (mass/volume)Ordered By: Sri Stevens on 07-24-2023 Creatinine [Mass/Vol] 0.96 mg/dL 0.70-1.30 [facility] Comment on above: Slight Lipemia, Resu lt may be falsely increased.The validity of the calculated GFR & GFRAA in patients over 70 years has not been determined. Clinical correlation is essential. Serum or plasma low density lipoprotein (LDL) cholesterol measurement (mass/volume)Ordered By: Sri Stevens on 07-24-2023 Cholesterol in LDL [Mass/Vol] [facility] Comment on above: Test not performed Serum or plasma urea nitroge n measurement (mass/volume)Ordered By: Sri Stevens on 07-24-2023 Urea nitrogen [Mass/Vol] 16 mg/dL 02-17 [facility] Comment on above: Slight Lipemia, Resu lt may be falsely increased. Thin prep Papanicolaou smear with manual screeningOrdered By: Sri Stevens on 07-24-2023 Thin prep Papanicolaou smear with manual screening 28 U/L 15 [facility] Comment on above: Slight Hemolysis, Re sult may be falsely increased.-Slight Lipemia, Result may be falsely increased. Thin prep Papanicolaou smear with manual screening 5 -15 [facility] CBC + DIFFon 02-14-2023 Baso # 0.10 x10EE3/UL Normal 0.00 - 0.10 [facility] Comment on above: Performed By: #### 2 [id number] #### [facility],[address] [place] [address]46[address] Basophils/100 WBC (Bld) 0.7 % Normal 0.0 - 2.0 [facility] Comment on above: Performed By: #### 2 13431 #### [facility],[address] [place] [address]135 CBC + DIFF Normal [facility] Comment on above: Result Comment: CBC- COMPLETE BLOOD COUNT Performed By: #### 2 [id number] #### [facility],[address] [place] [address]93 EO # 0.10 x10EE3/UL Normal 0.00 - 0.50 [facility] Comment on above: Performed By: #### 2 25753 #### [facility],[address] [place] [address] 75142 Eosinophils/100 WBC (Bld) 1.0 % Normal 0.0 - 7.0 [facility] Comment on above: Performed By: #### 2 51847 #### [facility],[address] [place] [address] 60801 Erythrocyte distribution width (RBC) [Ratio] 14.4 % Normal 12.0 - 15.6 [facility] Comment on above: Performed By: #### 2 95709 #### [facility],[address] [place] [address] 73599 Hematocrit (Bld) [Volume fraction] 45.1 % Normal 40.0 - 52.0 [facility] Comment on above: Performed By: #### 2 92068 #### [facility],[address] [place] [address] 06182 Hemoglobin (Bld) [Mass/Vol] 15.6 g/dL Normal 13.0 - 17.5 [facility] Comment on above: Performed By: #### 2 01022 #### [facility],[address] [place] [address] Lymph # 1.80 x10EE3/UL Normal 0.80 - 2.80 [facility] Comment on above: Performed By: #### 2 98952 #### [facility],[address] [place], [place] [phone] Lymphocytes/100 WBC (Bld) 22.4 % Normal 20.0 - 45.0 [facility] Comment on above: Performed By: #### 2 05893 #### [facility],[address] [place] [address] 73712 MANUAL DIFF N/A Normal [facility] Comment on above: Performed By: #### 2 44052 #### [facility],[address] [place], [place] [id number] MCH (RBC) [Entitic mass] 31 pg Normal 27 - 33 [facility] Comment on above: Performed By: #### 2 73602 #### [facility],[address] [place] [address] 30710 MCHC 35 X10 3 Normal 32 - 36 [facility] Comment on above: Performed By: #### 2 39773 #### [facility],[address] [place] [address] 41261 MCV (RBC) [Entitic vol] 90 fL Normal 81 - 98 [facility] Comment on above: Performed By: #### 2 55347 #### [facility],[address] [place] [address] 11529 Bowman # 0.60 x10EE3/UL Normal 0.20 - 1.00 [facility] Comment on above: Performed By: #### 2 40979 #### [facility],[address] [place] [address] 05096 MONOS % 8.0 % Normal 0.0 - 10.0 [facility] Comment on above: Performed By: #### 2 09903 #### [facility],[address] [place] [address] 24131 Morphology Arturo (Bld) [Interp] N/A Normal [facility] Comment on above: Performed By: #### 2 72194 #### [facility],[address] [place] [address] 93864 Neut # 5.40 x10EE3/UL Normal 1.50 - 7.10 [facility] Comment on above: Performed By: #### 2 40602 #### [facility],[address] [place] [address] 98323 Neutrophils/100 WBC (Bld) 67.9 % Normal 46.0 - 76.0 [facility] Comment on above: Performed By: #### 2 31199 #### [facility],[address] [place] [address] 18583 PLATELET 129 x10EE3/UL Low 150 - 450 [facility] Comment on above: Performed By: #### 2 61987 #### [facility],[address] [place] [address] 90727 Platelet mean volume (Bld) [Entitic vol] 8.3 fL Normal 6.4 - 10.5 [facility] Comment on above: Result Comment: AUTO MATED DIFFERENTIAL Performed By: #### 2 03278 #### [facility],[address] [place] [address] 94257 RBC 5.00 x 10EE6/UL Normal 4.50 - 6.00 [facility] Comment on above: Performed By: #### 2 16127 #### [facility],[address] [place] [address] 66788 WBC 8.0 x 10EE3/UL Normal 4.5 - 10.8 [facility] Comment on above: Performed By: #### 2 82973 #### [facility],[address] [place] [address] 18913 CMP with eGFRon 02-14-2023 AGE 57 years Normal [facility] Comment on above: Performed By: #### 2 77545 #### [facility],[address] [place] [address] 74356 Albumin [Mass/Vol] 3.9 g/dL Normal 3.4 - 5.0 [facility] Comment on above: Performed By: #### 2 92670 #### [facility],[address] [place], [place] [address] Albumin/Globulin [Mass ratio] 0.9 {ratio} Normal 0.9 - 1.6 [facility] Comment on above: Performed By: #### 2 54130 #### [facility],[address] [place] [address] 78219 ALK PHOS 142 U/L High 46 - 116 [facility] Comment on above: Performed By: #### 2 90723 #### [facility],[address] [place] [address] 04062 ALT [Catalytic activity/Vol] 32 U/L Normal 16 - 63 [facility] Comment on above: Performed By: #### 2 85182 #### [facility],[address] [place] [address] 17249 Anion gap [Moles/Vol] 14 mmol/L Normal 10 - 20 [facility] Comment on above: Performed By: #### 2 87482 #### [facility],[address] [place] [address] 58795 AST [Catalytic activity/Vol] 14 U/L Low 15 - 37 [facility] Comment on above: Performed By: #### 2 96753 #### [facility],[address] [place] [address] 77280 B/C RATIO 14 ratio Normal 0 - 30 [facility] Comment on above: Performed By: #### 2 32855 #### [facility],[address] [place] [address] 38103 Bilirubin [Mass/Vol] 1.0 mg/dL Normal 0.2 - 1.0 [facility] Comment on above: Performed By: #### 2 32360 #### [facility],[address] [place] [address] 14008 Calcium [Mass/Vol] 8.8 mg/dL Normal 8.5 - 10.1 [facility] Comment on above: Performed By: #### 2 72685 #### [facility],[address] [place] [address] 30356 Chloride [Moles/Vol] 105 mmol/L Normal 98 - 107 [facility] Comment on above: Performed By: #### 2 14784 #### [facility],[address] [place] [address] 78505 CMP with eGFR Normal [facility] Comment on above: Result Comment: COMP REHENSIVE METABOLIC PANEL Performed By: #### 2 63266 #### [facility],[address] [place] [address] 37011 CO2 [Moles/Vol] 26.3 mmol/L Normal 21.0 - 32.0 [facility] Comment on above: Performed By: #### 2 97093 #### [facility],[address] [place] [address] 10008 Creatinine [Mass/Vol] 1.09 mg/dL Normal 0.70 - 1.30 [facility] Comment on above: Performed By: #### 2 27390 #### [facility],[address] [place] [address] 14257 GFR/1.73 sq M.predicted among non-blacks MDRD (S/P/Bld) [Vol rate/Area] mL/min/{1.73_m2} Normal 60 - 999 [facility] Comment on above: Performed By: #### 2 99976 #### [address] [address] Result Comment: ACCO RDING TO THE NATIONAL KIDNEY DISEASE EDUCATION PROGRAM(NKDE), A NORMAL eGFR IS A VALUE GREATER THAN OR EQUAL TO 60 ML/MIN/1.73 SQ METERS. CHRONIC KIDNEY DISEASE: <60mL/MIN/1.73 SQ METERS KIDNEY FAILURE: <15mL/MIN/1.73 SQ METERS THIS TEST SHOULD ONLY BE USED FOR PATIENTS 18 YEARS OF AGE AND OLDER. Globulin (S) [Mass/Vol] 4.4 g/dL High 1.5 - 3.8 [facility] Comment on above: Performed By: #### 2 84447 #### [address] [address] Glucose [Mass/Vol] 87 mg/dL Normal 74 - 106 [facility] Comment on above: Performed By: #### 2 46275 #### [address] [address] Potassium [Moles/Vol] 3.9 mmol/L Normal 3.5 - 5.1 [facility] Comment on above: Performed By: #### 2 48570 #### [address] [address] Protein [Mass/Vol] 8.3 g/dL High 6.4 - 8.2 [facility] Comment on above: Performed By: #### 2 77972 #### [address] [address] Sodium [Moles/Vol] 141 mmol/L Normal 136 - 145 [facility] Comment on above: Performed By: #### 2 07195 #### [address] [address] Urea nitrogen [Mass/Vol] 15 mg/dL Normal 7 - 18 [facility] Comment on above: Performed By: #### 2 54705 #### [facility],[address] [place] [address] FACIAL BONES W/CONTRASTon 02-14-2023 CT FACIAL BONES W/CONTRAST [address] [address] Patient: EUNICE BRIONES Phone#: : 1965 Age: 57 Gender: M Pt. Type: ER Account: [id number] Location: [facility] Ordering: JAMIA OTERO Exam Date: 02/14/2023/11:07 Family Phys: NATALIE SARAH Charge Code: [id number] Physician: Jack Order #: [id number] Dose#: [id number] PROCEDURE: CT FACIAL BONES WITH CONTRAST COMPARISON: None. INDICATIONS: Edema of tissue. TECHNIQUE: After obtaining the patient's consent, CT images were created with non-ionic intravenous contrast. All CT scans at this facility use dose modulation, iterative reconstruction, and/or weight based dosing when appropriate to reduce radiation dose to as low as reasonably achievable. IV CONTRAST: Omnipaque 350,50ml TOTAL DOSE: 27.80 CTDIvol(mGy) FINDINGS: FACIAL BONES: Normal. No bony lesion or fracture SINUSES: Mucosal thickening is present in the maxillary and ethmoid sinuses. NASAL FOSSA: Normal. No mass, fracture, or significant septal deviation. SKULL BASE: Normal. No mass or bone destruction. ORBITS: Normal. No visible mass, hematoma, edema or fracture. CAVERNOUS SINUS: Normal. Symmetric appearance with no visible lesion. SALIVARY GLANDS: Normal. The parotid and submandibular glands are unremarkable. OTHER: There is mild fat stranding at the mentum is suggestive of cellulitis. Periodontal disease is present. CONCLUSION: 1. Periodontal disease. There is no evidence of abscess. Mild fat stranding at the mentum. Dictated by: Joann Britt MD on 02/16/2023 at 10:06 Approved by: Joann Britt MD on 02/16/2023 at 10:12 Normal [facility] US ABD COMPLETEon 01-15-2023 US ABD COMPLETE [place] [address] Patient: EUNICE BRIONES Phone#: : 1965 Age: 57 Gender: M Pt. Type: Out Account: [id number] Location: 2 Ordering: LEATHA SMITH Exam Date: 01/15/2023/13:11 Family Phys: Charge Code: [id number] Physician: Jack Order #: [id number] Dose#: PROCEDURE: ABDOMEN COMPLETE ULTRASOUND COMPARISON: [place], [place], RUQ (GB), 12/29/2017, 15:03. [place], CT, ABDOMEN/PELVIS W CON, 04/27/2019, 20:06. INDICATIONS: Abdominal pain TECHNIQUE: High resolution sonographic examination was performed of the abdomen. FINDINGS: LIVER: There is a cyst in the left lobe of the liver measuring 3.1 x 3.4 x 3.5 cm. Cyst in the right lobe measures 1.0 x 0.8 x 1.0 cm. BILIARY: Normal. Normal appearing gallbladder and biliary tree. Common bile duct measures 0.5 cm PANCREAS: Visualized portion is unremarkable SPLEEN: Normal and size echotexture. Spleen measures 11.7 x 9.1 x 8.7, volume of 483 mL. KIDNEYS: Normal renal parenchymal echogenicity. No hydronephrosis. AORTA/VASCULAR: Normal. No aneurysm. OTHER: Negative. CONCLUSION: 1. Two hepatic cysts Dictated by: Phuong Lawrence MD on 01/15/2023 at 17:28 Approved by: Phuong Lawrence MD on 01/15/2023 at 17:39 Normal [facility] Final Surgical Pathology Rep alexander 10-12-2018 Final Surgical Pathology Report . Pathology Reports Accession: Collected Date/Time: Received Date/Time: Pathologist: [id number] 10/08/2018 08:15 EST 10/11/2018 08:15 RAJ WALLIS MD Final Surgical Pathology Report DIAGNOSIS: GALLBLADDER, CHOLECYSTECTOMY SPECIMEN -- MILD CHRONIC CHOLECYSTITIS. COMMENT: [facility] [id number] CLINICAL INFORMATION: BILIARY COLIC SPECIMEN: A GALLBLADDER GROSS DESCRIPTION: Received in formalin labeled with the patient's name is an 8.8 x 4.4 x 2.4 cm gallbladder with an attached cystic duct. The serosa is green and smooth. Opening shows a moderate amount of green viscid bile with no choleliths identified. The mucosa is green and velvety with several adherent yellow, soft bosselated fragments averaging 0.1 cm. The wall is fatty, measuring up to 0.2 cm in thickness. RS -1 Dictated by Anuradha JUNIOR ([facility]) MICROSCOPIC DESCRIPTION: Slides reviewed. Electronically Signed by Pathology Report verified by [facility] Electronically signed by RAJ CRONIN Sign out Date: 10/12/2018 15:45 Performing Lab: [facility], [address] [place] [address] ([place]) Comment on above: Performed By: #### S PFR #### [place] [id number] Vital Signs Date Time Vital Sign Value Performing Clinician Dirk abbott 04-21-2025 13:32-0400 Body height 180.34 cm Sri Stevens MD Work Phone: [facility] 04-21-2025 13:32-0400 Body mass index (BMI) [Ratio] 27.1 kg/m2 Sri Stevens MD Work Phone: [facility] 04-21-2025 13:32-0400 Body weight 88.45 kg Sri Stevens MD Work Phone: [facility] 04-21-2025 13:32-0400 Diastolic blood pressure 89 mm[Hg] Sri Stevens MD Work Phone: [facility] 04-21-2025 13:32-0400 Heart rate 72 /min Sri Stevens MD Work Phone: [facility] 04-21-2025 13:32-0400 Respiratory rate 17 /min Sri Stevens MD Work Phone: [facility] 04-21-2025 13:32-0400 SaO2% (BldA) [Mass fraction] 96 % Sri Stevens MD Work Phone: [facility] 04-21-2025 13:32-0400 Systolic blood pressure 146 mm[Hg] Sri Stevens MD Work Phone: [facility] 08-15-2024 09:15-0500 Body height 180.34 cm Sri Stevens MD Work Phone: [facility] 08-15-2024 09:15-0500 Body mass index (BMI) [Ratio] 25.5 kg/m2 Sri Stevens MD Work Phone: [facility] 08-15-2024 09:15-0500 Body weight 83 kg Sri Stevens MD Work Phone: [facility] 08-15-2024 09:15-0500 Diastolic blood pressure 89 mm[Hg] Sri Stevens MD Work Phone: [facility] 08-15-2024 09:15-0500 Heart rate 70 /min Sri Stevens MD Work Phone: [facility] 08-15-2024 09:15-0500 Respiratory rate 18 /min Sri Stevens MD Work Phone: [facility] 08-15-2024 09:15-0500 SaO2% (BldA) [Mass fraction] 97 % Sri Stevens MD Work Phone: [facility] 08-15-2024 09:15-0500 Systolic blood pressure 147 mm[Hg] Sri Stevens MD Work Phone: [facility] 11-05-2023 11:34-0400 Body temperature 97.7 [degF] PA Oscar JUNIOR Work Phone: [facility] 11-05-2023 11:34-0400 Diastolic blood pressure 92 mm[Hg] RAMON JUNIOR Work Phone: [facility] 11-05-2023 11:34-0400 Heart rate 61 /min RAMON JUNIOR Work Phone: [facility] 11-05-2023 11:34-0400 Respiratory rate 16 /min PA Oscar Feng PA Work Phone: [facility] 11-05-2023 11:34-0400 SaO2% (BldA) [Mass fraction] 98 % PA Oscar Feng PA Work Phone: [facility] 11-05-2023 11:34-0400 Systolic blood pressure 131 mm[Hg] PA Oscar Feng PA Work Phone: [facility] 11-05-2023 08:09-0400 Body height 180.34 cm PA Oscar Feng PA Work Phone: [facility] 11-05-2023 08:09-0400 Body mass index (BMI) [Ratio] 25.9 kg/m2 PA Oscar Fegn PA Work Phone: [facility] 11-05-2023 08:09-0400 Body weight 84.54 kg PA Oscar Feng PA Work Phone: [facility] 07-14-2023 13:55-0500 Body height 182.88 cm PA Oscar Feng PA Work Phone: [facility] 07-14-2023 13:55-0500 Body mass index (BMI) [Ratio] 24.4 kg/m2 PA Oscar Feng PA Work Phone: [facility] 07-14-2023 13:55-0500 Body temperature 98.2 [degF] PA Oscar Feng PA Work Phone: [facility] 07-14-2023 13:55-0500 Body weight 81.64 kg PA Oscar Feng PA Work Phone: [facility] 07-14-2023 13:55-0500 Diastolic blood pressure 88 mm[Hg] PA Oscar Feng PA Work Phone: [facility] 07-14-2023 13:55-0500 Heart rate 80 /min PA Oscar Feng PA Work Phone: [facility] 07-14-2023 13:55-0500 Respiratory rate 14 /min RAMON JUNIOR Work Phone: [facility] 07-14-2023 13:55-0500 SaO2% (BldA) [Mass fraction] 97 % RAMON JUNIOR Work Phone: [facility] 07-14-2023 13:55-0500 Systolic blood pressure 162 mm[Hg] RAMON JUNIOR Work Phone: [facility] Encounters Encounter Date Encounter Type Care Provider Facility Start: 06-02-2025 ambulatory Sri Hilda Facility:[facility] Start: 06-02-2025 End: 06-02-2025 ambulatory Sri Hilda Facility:[facility] Start: 04-21-2025 End: 04-21-[address] Oscar Holman MD -[facility] Work Phone: Start: 04-21-2025 End: 04-21-2025 ambulatory Sri Stevens MD Work Phone: -[facility] Start: 12-23-2024 End: 12-23-2024 ambulatory Sri Stevens MD Work Phone: [facility] Work Phone: Start: 12-23-2024 End: 12-23-[address] Sri Stevens MD -[facility] Work Phone: Start: 12-23-2024 End: 12-23-2024 ambulatory Sri Stevens Facility:[facility] Start: 12-12-2024 End: 12-12-2024 ambulatory Sri Stevens MD Work Phone: [facility] Work Phone: Start: 12-12-2024 End: 12-12-[address] Óscar Vallejo MD -[facility] Work Phone: Start: 12-12-2024 End: 12-12-2024 jed Vallejo Facility:[facility] Start: 10-07-2024 End: 10-07-2024 ambulatory Sri Stevens MD Work Phone: [facility] Work Phone: Start: 10-07-2024 End: 10-07-[address] [facility] Start: 10-07-2024 End: 10-07-2024 ambulatory Sri Hilda Facility:[facility] Start: 09-23-2024 End: 09-23-2024 ambulatory Sri Stevens MD Work Phone: [facility] Work Phone: Start: 09-23-2024 End: 09-23-[address] [facility] Start: 09-23-2024 End: 09-23-2024 [facility] Start: 08-20-[address] Nacho hutson MD -Cardiovascular Services Work Phone: Start: 08-20-2024 ambulatory Nacho Mariano Facility :[facility] Start: 08-20-2024 Non-patient / Non-visit Dr. Nacho Mariano MD -[facility] Work Phone: Start: 08-15-2024 End: 08-15-[address] Nacho Mariano MD -[facility] Work Phone: Start: 08-15-2024 End: 08-15-2024 ambulatory Jack [facility] Start: 07-19-2024 End: 07-19-[address] Kirit Alvarado MD -Laboratory, [place] Work Phone: Start: 07-19-2024 End: 07-19-2024 [facility] Start: 11-05-2023 End: 11-05-2023 Emergency department patient visit PA Oscar JUNIOR Work Phone: [facility]-Emergency Department Work Phone: Start: 10-13-2023 End: 10-13-2023 ambulatory RAMON JUNIOR Work Phone: [facility] Work Phone: Start: 10-13-2023 End: 10-13-2023 Patient encounter procedure RAMON JUNIOR Work Phone: [facility]-Laboratory Work Phone: Start: 10-08-2023 ambulatory MALIA T [facility] Start: 10-08-2023 End: 10-08-2023 Emergency department patient visit NATALIE CRUZ [facility] Start: 09-25-2023 End: 09-25-2023 ambulatory RAMON JUNIOR Work Phone: [facility] Work Phone: Start: 09-25-2023 End: 09-25-2023 Patient encounter procedure RAMON JUNIOR Work Phone: [facility]-Radiology, [place] Work Phone: Start: 07-24-2023 End: 07-24-2023 ambulatory RAMON JUNIOR Work Phone: [facility] Work Phone: Start: 07-24-2023 End: 07-24-2023 Patient encounter procedure RAMON JUNIOR Work Phone: [facility]-Laboratory, [place] Work Phone: Start: 07-14-2023 End: 07-14-2023 Patient encounter procedure RAMON JUNIOR Work Phone: [facility] Work Phone: Start: 02-14-2023 End: 02-14-2023 Emergency department patient visit NATALIE CRUZ [facility] Start: 01-15-2023 End: 01-15-2023 ambulatory LEATHA CHAZ [facility] Procedures Date Procedure Procedure Detail Performing Clinician Start: 12-23-2024 Plain X-ray of shoulder Chalon Hilda MD Work Phone: Start: 12-12-2024 Plain X-ray abdomen Ailyn Stevens MD Work Phone: Start: 10-07-2024 X-ray of foot, three or more views Sri Stevens MD Work Phone: Start: 11-05-2023 Plain chest X-ray PA St jose c JUNIOR Work Phone: Start: 09-25-2023 Plain X-ray of shoulder PA Oscar JUNIOR Work Phone: Plan of Treatment Date Care Activity Detail Author Start: 06-02-2025 Colonoscopy [facility] Start: 08-15-2024 Evaluation of diagno [facility] study results [facility] Start: 11-05-2023 [facility] Start: 11-05-2023 [facility] Evaluation of [facility] study results [facility] Patient Education ED Chest Pain, Uncertain Cause [facility] Work Phone: Patient referral [facility] Work Phone: Payers Date Payer Category Payer Self-pay 2024 Unknown [id number] 1965 Unknown [id number] 2.16.8 [id number] 1965 Unknown [id number] 2.16.8 [id number] 1965 Unknown [id number] 2.16.8 [id number] 1965 Unknown [id number] 2.16.84 [id number] Unknown [employer] [id number] Unknown [id number] Unknown [id number] 2.16.8 [id number] Unknown [id number] 2.16.8 [id number] Unknown [id number] 2.16.8 [id number] Unknown [id number] 2.16.8 [id number] Unknown [id number] 2.16.8 [id number] Unknown [id number] 2.16.8 [id number] Unknown [id number] 2.16.8 [id number] Unknown [id number] 2.16.8 [id number] Unknown [id number] 2.16.8 [id number] Unknown [id number] 2.16.8 [id number] Unknown [id number] 2.16.8 [id number] Social History Date Type Detail Facility Tobacco smoking stat [facility] Unknown if ever smoked [facility] Work Phone: Start: 1965 Sex Assigned At Male [facility] Start: 11-05-2023 Tobacco smoking stat [facility] Unknown if ever smoked [facility] Start: 08-15-2024 End: 08-15-2024 Tobacco smoking status NHIS Never smoked tobacco (finding) [facility] Start: 10-06-2024 End: 10-20-2024 Sex Male (finding) [facility] Sex Male [facility] Mental Status Date Assessment Result Facility 11-05-2023 Cognitive function Voice/Name [facility] Work Phone: Clinical Notes 11-02-2023 to 06-02-2025 Note Date & Type Note Facility 06-02-2025 Note [facility] Medical Records Department [address] [place] [address] History Physical Exam 06/02/25819 MR#: [id number] Acct: [id number] Name: EUNICE BRIONES Rep #: [id number] : 1965 59 From: Oscar Holman MD PCP: Dr. Sri Stevens MD Status:[facility] Location: [place] [address] HPI - General General Date of Admission: 06/02/25 Date of Service: 06/02/25 Chief Complaint: Screening colonoscopy HPI Narrative The patient is a 59-year-old male who was seen for colonoscopy. He states that his last colonoscopy was about 20 years ago. He has noticed that he has been having softer stools/diarrhea recently. He denies any blood in his stools. No black or tarry stools. It sounds as though he does have a family history of colon cancer in one of his grandparents. He believes that his bowel function has never been the same since a cholecystectomy many years ago. [facility] Medical History Wears glasses Arthritis Gastric reflux Non-smoker Cardiology follow-up encounter History of left heart catheterization First degree AV block Bradycardia Dizziness Hypertension Home Medications ???Medication ???Instructions ???Recorded ???Last Taken ???Type amlodipine 10 mg tablet 10 mg PO DAILY 11/05/23 06/01/25 H istory losartan 50 mg tablet 50 mg PO DAILY 11/05/23 06/01/25 H istory meloxicam 15 mg tablet 15 mg PO DAILY 05/31/25 Unknown Hi story Allergy/AdvReac Type Severity Reaction Status Date / Time No Known Allergies Allergy Verified 06/02/25 07:29 Family History Sister Cancer Grandmother Colon cancer Brother Cancer Father Hypertension Surgical History History of cardiac catheterization History of hernia repair History of cholecystectomy Social History Smoking Status: Never smoker Smokeless tobacco user: chewing tobacco alcohol intake: never substance use type: does not use caffeine: Yes Type: carbonated beverages Number of servings: 6 Vital Signs Vital Signs Vital Signs: 06/02/25 07:30 06/02/25 07:30 06/02/25 07:53 Temperature 97.3 F L 97.3 F L Temperature Source Temporal Pulse Rate 70 70 Respiratory Rate 16 16 Respiratory Pattern Normal Blood Pressure 128/97 H 128/97 H Blood Pressure Mean 107 Blood Pressure Source Monitor Blood Pressure Position Sitting Blood Pressure Location Left Arm Pulse Ox 100 100 Oxygen Delivery Method Room Air Weight Weight: 194 lb 0.108 oz Body Mass Index (BMI) 27.0 Physical Exam Const alert, oriented x3 and no apparent distress Assessment Plan Assessment/Plan (1) Encounter for screening for malignant neoplasm of colon: PLAN: Plan Screening colonoscopy planned for today. Details of procedure as well as risks benefits and alternatives reviewed. 06/02/25823 Cosigner Signature (if applicable): CC: Dr. Sri Stevens MD; Dr. Oscar Holman MD Signed [facility] 04-21-2025 Progress note [facility] 12-28-2024 Radiology Diagnostic study note [facility] Imaging Services [address] [place], [place] [address] Shoulder min 2 Views MR#: [id number] Acct: [id number] Name: EUNICE BRIONES Rep #: [id number] : 1965 M 59 From: Joaquín Zavala MD PCP: Dr. Sri Stevens MD Status: REG CL I Study:Shoulder min 2 Views Date of Exam: 12/23/24 Exam# [id number] Ordering Dr: Ailyn Stevens MD PROCEDURE: SHOULDER MIN 2 VIEWS 12/23/2024 REASON FOR EXAM: INJURY TO SHOULDER TECHNIQUE: Four views of the left shoulder were obtained. COMPARISON: None FINDINGS: Bones: No fracture or dislocation. Joints: Degenerative arthrosis of the acromioclavicular joint. Mild degree of joint space narrowing of the glenohumeral joint. Soft tissues: Soft tissues are unremarkable. Other: RAD/Shoulder min 2 Views IMPRESSION: Degenerative changes of the acromioclavicular joint as well as the glenohumeral joint. Reading Location: [facility] CC: Dr. Sri Stevens MD ~ Die Engra[employer] Supervisor: Signed [facility] 12-13-2024 Radiology Diagnostic study note [facility] Imaging Services [address] [place] [address] Abdomen Single View MR#: [id number] Acct: [id number] Name: EUNICE BRIONES Rep #: [id number] : 1965 M 59 From: Kory Tijerina MD PCP: Dr. Sri Stevens MD Status: REG CL I Study:Abdomen Single View Date of Exam: 12/12/24 Exam# [id number] Ordering Dr: Óscar Vallejo MD PROCEDURE: ABDOMEN SINGLE VIEW 12/12/2024 REASON FOR EXAM: ABDOMINAL PAIN TECHNIQUE: Two-view supine abdomen. COMPARISON: Chest x-ray of 04/04/2024 RAD/Abdomen Single View IMPRESSION: Right upper quadrant abdominal surgical clips are seen. Air and stool are seen throughout the large bowel and rectum. Mildly dilated small bowel loops are seen centrally and to the left especially, concerning for adynamic ileus (versus early/partial small bowelobstruction). No mass or mass effect is seen. Degenerative changes are seen of the visualized spine, particularly the lower lumbar spine. Reading Location: [facility] CC: Dr. Sri Stevens MD; Dr. Óscar Vallejo MD ~ Die Engraving Supervisor: Signed [facility] 10-07-2024 Radiology Diagnostic study note [facility] Imaging Services [address] [place], [place] [address] Foot min 3 Views MR#: [id number] Acct: [id number] Name: EUNICE BRIONES Rep #: [id number] : 1965 M 58 From: Derek Kolb DO PCP: Dr. Sri Stevens MD Status: REG CL I Study:Foot min 3 Views Date of Exam: 02/24 Exam# [id number] Ordering Dr: Ailyn Stevens MD PROCEDURE: FOOT MIN 3 VIEWS REASON FOR EXAM: Pain TECHNIQUE: Three views of the left foot COMPARISON: None. FINDINGS: See impression RAD/Foot min 3 Views IMPRESSION: Negative for acute fracture or malalignment. Healed chronic fracture deformity of the 5th metatarsal. Mild 1st MTP joint osteoarthritis. No suspicious erosions. Vascular calcifications. Reading Location: [facility] CC: Dr. Sri Stevens MD ~ Die Engra[employer] Supervisor: Signed [facility] 08-15-2024 Evaluation note Diagnosis Onset Date Resolution Bradycardia acute August 15, 2024 9:11am Dizziness acute August 15, 2024 9:11am Hypertension chronic August 9:11am [facility] Work Phone: [phone]) 766-363604-01-2024 Evaluation note* Diagnosis Onset Date Resolution Status Gastroenteritis acute Impacted cerumen, right ear November, acute [facility] Work Phone: Evaluation note* Diagnosis Onset Date Resolution Status Gastroenteritis acute Impacted cerumen, right ear acute [facility] Work Phone: Evaluation noteNo assessment information available [facility] Work Phone: Evaluation note* Diagnosis Onset Date Resolution Status Admit Date Encounter for screening for malignant neoplasm of colon acute Sept emb2024 12:50pm [facility] Work Phone: Hospital Discharge instructions Additional Instructions Follow-up on the for your echocardiogram and stress test as planned. Return to the ER for worsening symptoms or concerns.[facility] Work Phone: Progress note Author Oscar Holman [facility] Note Date/Time April 21, 2025 1:52pm [facility] [address] [place] [address] OFFICE VISIT Date of Service: 04/21/25 MR#: [id number] Acct: [id number] Name: EUNICE BRIONES Rep #: [id number] : 1965 Provider: Dr. Caden Holman MD Age/Sex: 59/M Location: [facility] Status: Signed Intake Vital Signs 08/15/24 09:15 04/21/25 13:32 Height 5 ft 11 in 5 ft 11 in Weight: 195 lb BMI 27.1 Body Surface Area 511 BP 146/89 H Blood Pressure Location Rt brachial Position Sitting Respiration 17 Pulse 72 Pulse Source Monitor Pulse Oximetry (%) 96 Oxygen Delivery Method room air Intake Visit Reasons: CHANGE IN BOWELS Chief Complaint: bowel changes Is patient in pain?: No Allergies No Known Allergies Allergy (Verified 04/21/25 13:33) Medications ?Medication ?Instructions ?Recorded ?Confirmed ?Type amlodipine 10 mg tablet 10 mg PO DAILY 11/05/2304/03 History losartan 50 mg tablet 50 mg PO DAILY 11/05/2304/03 History PFSH Medical History History of left heart catheterization First degree AV block Bradycardia Dizziness Hypertension Surgical History History of hernia repair History of cholecystectomy Family History (Updated 04/21/25 @ 13:32 by Sugar Reyes) Sister Cancer Grandmother Colon cancer Brother Cancer Father Hypertension Social History Smoking Status: Never smoker Smokeless tobacco user: chewing tobacco alcohol intake: never substance use type: does not use caffeine: Yes Type: carbonated beverages Number of servings: 6 HPI HPI HPI: The patient is a 59-year-old male who was seen in the office today to schedule colonoscopy. He states that his last colonoscopy was about 20 years ago. He has noticed that he has been having softer stools/diarrhea recently. He denies any blood in his stools. No black or tarry stools. It sounds as though he doeshave a family history of colon cancer in one of his grandparents. He believes that his bowel function has never been the same since a cholecystectomy many years ago. He presents today to get scheduled for colonoscopy ROS General General: Yes weight change and fatigue; No appetite, colon cancer, breast cancer or weakness HEENT HEENT: No difficulty swallowing, eye injury, eye surgery, swollen glands or hoarseness Endo Endocrine: No thyroid disease, diabetes mellitus, thyroid cancer, Hair loss, heat intolerance or cold intolerance Skin Skin: No rash or changing moles Musc Musculoskeletal: Yes arthritis; No back problems, rheumatoid arthritis, gout or joint pain Cardio Cardiovascular: Yes high blood pressure; No murmur, pacemaker, heart disease, atrial fibrillation, heart attack, heart stent, palpitations, shortness of breath with exertion or chest pain Psych Psychiatric: No depression, anxiety or hearing voices Resp Respiratory: No shortness of breath, No sleep apnea, No cough, No COPD, No asthma, No emphysema and No wheezing Gastro Gastrointestinal: Yes abdominal pain, Yes nausea or vomiting, Yes diarrhea, Yes constipation, Yes blood in stool, Yes acid reflux, Yes hemorrhoids, No ulcers, No gallbladder problem and No black,tarry stools Suman Hematologic: No blood thinners, No blood disorders, No bleeding, No anemia and No blood clots Neuro Neurologic: No system reviewed and no additional complaints, except as documented, No as per HPI, No abnormal gait, No abnormal hearing, No abnormal movements, No abnormal speech, No behavioral changes, No burning sensations, No confusion, No convulsions, No disequilibrium, No dizziness, No localized weakness, No frequent falls, No headache(s), No lack of coordination, No loss ofvision, No memory loss, No numbness, No other visual disturbances, No radicular pain, No restless legs, No sensory deficit, No syncope, No tingling, No tremor(s), No weakness and No other Exam Const General: cooperative, healthy appearing and comfortable [facility] Head: normal to inspection, normocephalic and atraumatic Eyes General: appearance normal, both eyes and all related structures Neck Neck: normal visual inspection Resp Effort & Inspection: normal respiratory effort Assessment and Plan Assessment and Plan (1) Encounter for screening for malignant neoplasm of colon: Status: Acute Plan: The patient is a 59-year-old male in need of a colonoscopy. His last colonoscopy was about 20 years ago. He states that more recently he has noticedsome increase in soft stools or diarrhea. He denies any black or tarry stools. He does have a family history of colon cancer in a grandparent. We discussed the details of the planned colonoscopy including risk benefits and alternatives. He wishes to proceed. This will be scheduled in a timely manner. Coding Level of Care Code Off vis,new,level 3 Diagnoses Encounter for screening for malignant neoplasm of colon Z12.11 04/21/25 [id number] <Electronically signed by Oscar woodruff MD> Date _ Oscar Holman MD [facility] Signature: Date (if applicable) CC: Dr. Sri Stevens MD ~ [facility] Work Phone: Reason for referral (narrative)No reason for referral [facility] Work Phone: Summary Purpose Family History No Family History Records Found Relationship Condition Age at Onset Recorded Date/T sanaz sister Malignant neoplasm Unknown grandmother Malignant neoplasm of colon Unknown brother Malignant neoplasm Unknown father Hypertension Unknown Advance Directives No Advanced Directives Records Found Advance Directive Response Recorded Date/ Time Living Will No November 05, 2023 8:20am Power of Seamstress Fitter No November 04 8:20am Chief Complaint and Reason for Visit Chief Complaint VOMITING Reason for Visit Gastroenteritis Impacted cerumen, right ear Chief Complaint VOMITING Right shoulder injury Reason for Visit Gastroenteritis Impacted cerumen, right ear Chief Complaint VOMITING Right shoulder injury cp Reason for Visit Gastroenteritis Impacted cerumen, right ear Chief Complaint Admit Date EORDER July 19, 2024 4:27pm Dizziness ([place]) August 15, 2024 9:11am 30 DAY MONITOR August 20, 2024 8 :00am BRADYCARDIA August 20, 2024 8 :28am Reason for Visit Admit Date Bradycardia August 15, 2024 9 :11am Dizziness August 15, 2024 9 :11am Hypertension August 15, 2024 9 :11am Chief Complaint Admit Date EORDER July 19, 2024 4:27pm Dizziness ([place]) August 15, 2024 9:11am 30 DAY MONITOR August 20, 2024 8 :00am BRADYCARDIA August 20, 2024 8 :28am left toe/ left foot October 07, 2024 4:26 pm Chief Complaint Admit Date 30 DAY MONITOR August 20, 2024 8 :00am BRADYCARDIA August 20, 2024 8 :28am left toe/ left foot October 07, 2024 4:26 pm ABDOMINAL PAIN, DIARRHEA, VOMITING December 012024 3:02pm Chief Complaint Admit Date left toe/ left foot October 07, 2024 4:26 pm ABDOMINAL PAIN, DIARRHEA, VOMITING December 012024 3:02pm injury to shoulder- LEFT December 23, 2024 4:55pm Chief Complaint Admit Date CHANGE IN BOWELS April 21, 2025 12:50pm Reason for Visit Admit Date Encounter for screening for malignant ne oplasm of colon April 21, 2025 12:50pm Additional Source Comments (unrecognized sect ion and content) No Status Records FoundNo Status Records FoundNo Status Records Found INFORMATION SOURCE (unrecogn ized section and content) DATE CREATED AUTHOR 10/13/2018 [facility] DATE CREATED AUTHOR AUTHOR'S ORGANIZ ATION 10/09/2023 [facility] DATE CREATED AUTHOR AUTHOR'S ORGANIZ ATION 06/12/2025 [facility] Care Teams (unrecognized sec tion and content) Team Status: Active Member Role Status Joe Stevens MD Primary Care Provider Active Team Status: Inactive Member Role Status Joe Stevens MD Primary Care Provider Active St art: September 23, 2024 End: September 23, 2024 Sri Stevens MD Attending Provider Active Start : September 23, 2024 End: September 23, 2024 Sri Stevens MD Referring Provider Active Start : September 23, 2024 End: September 23, 2024 Team Status: Inactive Member Role Status Joe Stevens MD Primary Care Provider Active St art: October 07, 2024 End: October 07, 2024 Sri Stevens MD Attending Provider Active Start : October 07, 2024 End: October 07, 2024 Sri Stevens MD Referring Provider Active Start : October 07, 2024 End: October 07, 2024 Team Status: Inactive Member Role Status Joe Stevens MD Primary Care Provider Active St art: December 12, 2024 End: December 12, 2024 Dr. Óscar Vallejo MD Attending Provider Active Start: December 12, 2024 End: December 12, 2024 Dr. Óscar Vallejo MD Referring Provider Active Start: December 12, 2024 End: December 12, 2024 Team Status: Inactive Member Role Status Joe Setvens MD Primary Care Provider Active St art: December 23, 2024 End: December 23, 2024 Sri Stevens MD Attending Provider Active Start : December 23, 2024 End: December 23, 2024 Sri Stevens MD Referring Provider Active Start : December 23, 2024 End: December 23, 2024 Team Status: Active Member Role Status Joe Stevens MD Primary Care Provider Active St art: August 20, 2024 Dr. Nacho Mariano MD Attending Provider Active Start: August 20, 2024 Dr. Nacho Mariano MD Referring Provider Active Start: August 20, 2024 Team Status: Inactive Member Role Status Joe Feng PA, PA Attending Provider Active Team Status: Inactive Member Role Status Joe Stevens MD Primary Care Provide r, Attending Provider, Referring Provider Active Team Status: Inactive Member Role Status Joe Stevens MD Primary Care Provider Active Dr. Ramona Graves MD Emergency Provider Active Team Status: Inactive Member Role Status Joe Stevens MD Primary Care Provider Active St art: July 19, 2024 End: July 19, 2024 Dr. Kirit Alvarado MD Attending Provider Active Start: July 19, 2024 End: July 19, 2024 Dr. Kirit Alvarado MD Referring Provider Active Start: July 19, 2024 End: July 19, 2024 Team Status: Inactive Member Role Status Joe Stevens MD Primary Care Provider Active St art: August 15, 2024 End: August 15, 2024 Dr. Nacho Mariano MD Attending Provider Active Start: August 15, 2024 End: August 15, 2024 [facility] RENDERING EQUIPMENT TENDER, RENDERING EQUIPMENT TENDER-C Referring Provider Active Start: August 15, 2024 End: August 15, 2024 Team Status: Active Member Role/Relationship Status Joe Stevens MD Primary care physician Active Team Status: Inactive Member Role/Relationship Status Joe Stevens MD Primary care physician Active S tart: April 21, 2025 End: April 21, 2025 Sri Stevens MD Referring Provider Active Start : April 21, 2025 End: April 21, 2025 Dr. Oscar Holman MD Attending physician Active Start: April 21, 2025 End: April 21, 2025 Goals (unrecognized section and content) Goals may be documented in a n alternate sectionGoals may be documented in an alternate sectionGoals may be documented in an alternate sectionGoals may be documented in an alternate sectionGoals may be documented in an alternate sectionGoals may be documented in an alternate sectionGoals may be documented in an alternate sectionGoals may be documented in an alternate sectionGoals may be documented in an alternate section FOR RECORDS PERTAINING TO PATIENTS WHO ARE [...] BE BASED ON THE PRIMARY CLINICAL RECORDS. [facility]. provides no warranty or guarantee of the accuracy or completeness of information in this document.
== END | disposition home or self-care (01) ==
LOC: MTRAD 14:15
PROVIDERS: PCP Family Medicine; Referring Provider Family Medicine; Visit Provider Family Medicine
DX: M25.521 Pain in right elbow (principal)
CPT/HCPCS: 73080